=== PATIENT | male | born 1975 | race African-American/Black ===

== ENCOUNTER 2017-08-05 08:17 | Emergency (ER) | payer SELFPAY ==
[2017-08-05 08:29] VITALS: BP 142/79; BMI 41.8
[2017-08-05] MEDS ORDERED: TORADOL 60 MG VIAL IM ONE (09:01)
[2017-08-05] MEDS ORDERED: TORADOL 60 MG VIAL ONE (09:11)
--- NOTE | 2017-08-05 09:12 | DR.GENAD ---
HPI - PCP Primary Care Physician: lolita england - Complaint/Symptoms Chief Complaint Doctors Comments: Patient is complaining of severe left foot and ankle pain for the past 3-4 days getting worst today. States he has been taking prednisone and colchicine for gout but it has not been helping. state he saw Dr. Clark two days ago and he said it was not warm but had swelling and he was going to treat him for gout first and if it did not get any better to come back. He denies any recent trauma to his foot or ankle. States the pain is 30 of 10. states his left foot has been swelling for the past 4-5 days. He denies fever, chills, or lesions to his foot. Patient states he has had pens in his foot and had his bones fused in his left foot and has been having problems bending his foot since the surgery. Chief Complaint:: PT IS ON CRUTCHES, PT C/O EDEMA AND PAIN TO THE LEFT AKLE AREA , PT WAS SEEN BY DR. CLARK AND TX FOR GOUT AND HE WAS TOLD TO COME BACK IF SYMTOMS WORSEN, AND HE SAYS HE COULD NOT MAKE IT, Self Treatment fo Chief Complaint: ALLOPURIOL, - Nurses notes reviewed Nurses Notes Review: Yes - Source History Provided: Patient - Mode of Arrival Mode of Arrival: Ambulatory - Timing Onset of Chief Complaint: 08/01/17 Came on: Gradually - Duration Duration: Constant How lon Duration: Days - Location Location: left foot - Severity Severity: Severe - Modifying Factors Worsens:: nothing Improves:: nothing PMH - PMH Past Medical History: Yes Past Medical History: Gout, Hypertension Past Surgical History: Yes Surgical History: Ortho Surgery - Family History History of Family Medical Conditions: Yes Family Medical History: Diabetes Mellitus, Cancer, Hypertension - Social History Does patient currently use any type of tobacco product: Yes Have you used tobacco products in the last 12 months: Yes Type of Tobacco Use: Smokeless Does any household member use tobacco: No Alcohol Use: Rarely Do you use any recreational Drugs:: No Lives With: Family Lives Where: Home - infectious screening In the last 2 months have you had wt loss of >10#?: NO Have you had fever, night sweats or hemotysis?: No Have you traveled outside the country in the last 6 months?: No Isolation: Standard ROS - Review of Systems Constitutional: No Symptoms Reported. negative: See HPI, Chills, Diaphoresis, Fever, Malaise, Weakness, Irritable, Fatigue, Loss of Appetite, Other Eyes: No Symptoms Reported ENTM: No Symptoms Reported. negative: See HPI, Ear Pain, Ear Discharge, Pulling on Ears, Hearing Loss, Nose Pain, Nose Discharge, Epistaxis, Nose Congestion, Mouth Pain, Mouth Swelling, Loose Teeth, Drooling, Throat Pain, Throat Swelling, Ear Foreign Body Respiratoy: No Symptoms Reported Cardiovascular: No Symptoms Reported. negative: See HPI, Chest Pain, Edema, Palpitations, Syncope, Cyanosis, Skin Mottling, Other Gastrointestinal/Abdominal: No Symptoms Reported. negative: See HPI, Abdominal Pain, Constipation, Diarrhea, Nausea, Vomiting, Food Intolerance, Other Genitourinary: No Symptoms Reported Neurological: No Symptoms Reported, Problems Walking (left foot pain; unable to put weight on left foot). negative: See HPI, Anxiety, Depressed, Emotional Problems, Headache, Numbness, Paresthesia, Pre-existing Deficit, Seizure, Tingling, Tremors, Weakness, Dizziness, Speech Problem, Other Musculoskeletal: No Symptoms Reported, Left, Ankle (pain and swelling), Foot Integumentary: No Symptoms Reported. negative: See HPI, Change in Color, Change in Hair/Nails, Dryness, Lesions, Lumps, Rash, Itching, Wound, Bruises, Juandice, Other Hematologic/Lymphatic: No Symptoms Reported Endocrine: No Symptoms Reported Psychiatric: No Symptoms Reported PE - Vital Signs Vitals: Temperature 97.5 F Pulse Rate 88 Respiratory Rate 22 Blood Pressure [Left Arm] 160/95 Blood Pressure [Right Arm] 142/86 Blood Pressure 142/79 O2 Sat by Pulse Oximetry 98 - General Limitations: No Limitations General Appearance: Alert, In Distress (moderate), Obese - Head Head Exam: Normal Inspection, Atraumatic, Normocephalic - Eyes Eye exam: Normal Appearance, PERRL, EOMI. negative: Scleral Icterus, Conjunctival Injection, Nystagmus, Miosis, Mydrasis, Periorbital Swelling, Periorbital Tenderness, Other - ENT ENT Exam: Normal Exam, Normal Oropharynx, Normal External Ear Exam, Mucous Membranes Moist, TM's Normal Bilaterally External Ear Exam: Normal External Inspection TM/Canal Exam: Bilateral Normal Nose Exam: Normal Nose Exam Mouth Exam: Normal Inspection Throat Exam: Normal Inspection - Neck Neck Exam: Normal Inspection, Full ROM, Trachea Midline. negative: Tenderness, Meningismus, Lymphadenopathy, Thyromegaly, Other - Chest Chest Inspection: Normal Inspection, Symmetric Chest Wall Rise - Respiratory Respiratory Exam: Normal Lung Sounds Bilat Respiratory Exam: Bilateral Clear to Auscultation - Cardiovascular Cardiovascular Exam: Regular Rate, Normal Rhythm, Normal Heart Sounds - Abdominal Exam Abdominal Exam: Normal Inspection, Normal Bowel Sounds, Soft. negative: Distention, Tenderness, Guarding, Rebound, Rigidity, Dimnished Bowel Sounds, Hyperactive Bowel Sounds, Hypoactive Bowel Sounds, Organomegaly, Trauma, Incision, Ascites, Mass, Bruit, Pulsatile Mass, Hernia, Other Abdominal Tenderness: negative: RUQ, RLQ, LUQ, LLQ, Epigastrium, Suprapubic, Diffuse, Mild, Moderate, Severe, Other - Extremities Extremities Exam: Normal Inspection, Full ROM, Tenderness (left ankle and lateral foot), Normal Capillary Refill, Edema (1-2+ edema left foot; severe pes planis left foot). negative: Joint Swelling, Calf Tenderness, Other - Back Back Exam: Normal Inspection, Full ROM. negative: Tenderness, (R) CVA Tenderness, (L) CVA Tenderness, Muscle Spasm, Paraspinal Tenderness, Vertebral Tenderness, Rashes, (R) Sciatic Notch Tenderness, (L) Sciatic Notch Tendern, (R ) Straight Leg Raise, (L) Straight Leg Raise, Other - Neurologic Neurological Exam: Alert, Oriented X3, CN II-XII Intact, Reflexes Normal. negative: Normal Gait (gait not tested) - Psychiatric Psychiatric Exam: Normal Affect, Normal Mood. negative: Depressed, Agitated, Anxious, Flat Affect, Manic, Homicidal Ideation, Suicidal Ideation, Other - Skin Skin Exam: Warm, Dry, Intact, Normal Color ROR - Labs Reviewed Laboratory Results Reviewed?: Yes (all labs and x-ray results reviewed and discussed with patient) Result Diagrams: 08/05/17 09:10 08/05/17 09:10 Laboratory: WBC 9.8 X10^3/uL (3.6-10.0) 08/05/17 09:10 RBC 4.56 X10^6/uL (4.7-6.0) L 08/05/17 09:10 Hgb 14.0 g/dL (13.5-18.0) 08/05/17 09:10 Hct 41.1 % (42.0-54.0) L 08/05/17 09:10 MCV 90.1 fL (80.0-100.0) 08/05/17 09:10 MCH 30.7 pg (27.0-34.0) 08/05/17 09:10 MCHC 34.1 g/dL (33.0-35.0) 08/05/17 09:10 RDW 13.3 % (11.6-16.5) 08/05/17 09:10 Plt Count 237 X10^3/uL (150.0-450.0) 08/05/17 09:10 MPV 10.1 fL (7.4-11.0) 08/05/17 09:10 Neut % 56.2 % (42.0-75.0) 08/05/17 09:10 Lymph % 33.7 % (21.0-51.0) 08/05/17 09:10 [place] % 7.9 % (0.0-13.0) 08/05/17 09:10 Eos % 1.5 % (0.9-2.9) 08/05/17 09:10 Baso % 0.7 % (0.2-1.0) 08/05/17 09:10 Neut # 5.5 x10^3/uL (2.2-4.8) H 08/05/17 09:10 Lymph # 3.3 X10^3/uL (1.3-2.9) H 08/05/17 09:10 [place] # 0.8 x10^3/uL (0.3-0.8) 08/05/17 09:10 Eos # 0.1 x10^3/uL (0.0-0.2) 08/05/17 09:10 Baso # 0.1 X10^3/uL (0.0-0.1) 08/05/17 09:10 Absolute Nucleated RBC 0.1 /100WBC 08/05/17 09:10 Sodium 137 mmol/L (136-145) 08/05/17 09:10 Corrected Sodium TNP 08/05/17 09:10 Potassium 3.8 mmol/L (3.5-5.1) 08/05/17 09:10 Chloride 102 mmol/L (98-107) 08/05/17 09:10 Carbon Dioxide 27.6 mmol/L (21-32) 08/05/17 09:10 BUN 16 mg/dL (7-18) 08/05/17 09:10 Creatinine 1.05 mg/dL (0.70-1.30) 08/05/17 09:10 Est GFR (MDRD) Af Amer > 60 (>60) 08/05/17 09:10 Est GFR (MDRD) Non-Af > 60 (>60) 08/05/17 09:10 Glucose 109 mg/dL (65-99) H 08/05/17 09:10 Uric Acid 7.0 mg/dL (3.5-7.2) 08/05/17 09:10 Calcium 8.8 mg/dL (8.5-10.1) 08/05/17 09:10 Corrected Calcium TNP 08/05/17 09:10 Total Bilirubin 0.50 mg/dL (0.2-1.0) 08/05/17 09:10 AST 28 Units/L (15-37) 08/05/17 09:10 ALT 45 Units/L (12-78) 08/05/17 09:10 Alkaline Phosphatase 105 Units/L (46-116) 08/05/17 09:10 Total Protein 8.0 g/dL (6.4-8.2) 08/05/17 09:10 Albumin 3.6 g/dL (3.4-5.0) 08/05/17 09:10 Globulin 4.4 g/dL (2.5-4.5) 08/05/17 09:10 Albumin/Globulin Ratio 0.8 Ratio (1.1-2.1) L 08/05/17 09:10 - XRAY XRAY Interpreted by: Self (left foot: No acute fracture or dislocation; fusion of talus and calcaneus noted) - Diagnosis Discharge Problem: Foot pain, left, Gout, early cellulitis left foot, probable, Pes planus - Discharge Plan Disposition: HOME, SELF-CARE Condition: Stable Prescriptions: Acetaminophen/Codeine Tab [TYLENOL w/CODEINE #3 (300 MG/30 MG) *] 1 tab PO Q4- 6H PRN #24 tab PRN Reason: Pain Ciprofloxacin HCl [CIPRO 500 MG TAB *] 500 mg PO Q12H #20 tab Prednisone [Prednisone Tab 20 mg] 20 mg PO QAM #14 tab - Follow ups/Referrals Follow ups/Referrals: JENNIFER CLARK [Primary Care Provider] - 3 days - Instructions Instructions: Gout, [id number], Cellulitis, Adult, [id number], Flat Feet
[2017-08-05 09:27] LABS: BASOPHILS # (AUTO) 0.1 X10^3/uL (0.0-0.1); BASOPHILS % (AUTO) 0.7 % (0.2-1.0); EOSINOPHILS # (AUTO) 0.1 x10^3/uL (0.0-0.2); EOSINOPHILS % (AUTO) 1.5 % (0.9-2.9); HEMATOCRIT 41.1 % (42.0-54.0); LYMPHOCYTES # (AUTO) 3.3 X10^3/uL (1.3-2.9); LYMPHOCYTES % (AUTO) 33.7 % (21.0-51.0); MEAN CORPUSCULAR HEMOGLOBIN 30.7 pg (27.0-34.0); MEAN CORPUSCULAR HGB CONC 34.1 g/dL (33.0-35.0); MEAN CORPUSCULAR VOLUME 90.1 fL (80.0-100.0); MEAN PLATELET VOLUME 10.1 fL (7.4-11.0); MONOCYTES # (AUTO) 0.8 x10^3/uL (0.3-0.8); MONOCYTES % (AUTO) 7.9 % (0.0-13.0); NEUTROPHILS # (AUTO) 5.5 x10^3/uL (2.2-4.8); NEUTROPHILS % (AUTO) 56.2 % (42.0-75.0); PLATELET COUNT 237 X10^3/uL (150.0-450.0); RED BLOOD COUNT 4.56 X10^6/uL (4.7-6.0); RED CELL DISTRIBUTION WIDTH 13.3 % (11.6-16.5); WHITE BLOOD COUNT 9.8 X10^3/uL (3.6-10.0)
[2017-08-05 09:40] LABS: ALANINE AMINOTRANSFERASE 45 Units/L (12-78); ALBUMIN 3.6 g/dL (3.4-5.0); ALKALINE PHOSPHATASE 105 Units/L (46-116); ASPARTATE AMINO TRANSFERASE 28 Units/L (15-37); BLOOD UREA NITROGEN 16 mg/dL (7-18); CALCIUM 8.8 mg/dL (8.5-10.1); CARBON DIOXIDE 27.6 mmol/L (21-32); CHLORIDE 102 mmol/L (98-107); CREATININE 1.05 mg/dL (0.70-1.30); SODIUM 137 mmol/L (136-145); eGFR BLACK RACES > 60 (>60); eGFR NON BLACK RACES > 60 (>60)
[2017-08-05] MEDS ORDERED: PREDNISONE TAB 20 MG PO ONE (10:31)
[2017-08-05] MEDS ORDERED: LEVAQUIN TAB 500 MG PO SCH (11:00)
--- NOTE | 2017-08-05 15:17 | RAD ---
History: Left foot and ankle pain and swelling Technique: Three views of the left ankle Comparison:NONE Findings: There is generalized osteopenia. There is a pes planus foot deformity. There is moderate periarticula r soft tissue swelling. No acute fracture or dislocation is demonstrated. 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 There is m oderate midfoot osteoarthrosis. Impression: 1. Findings consistent with a talocalcaneal coalition. This can be further assessed with nonemergent outpatient CT or MRI if clinically indicated. 2. Pes planus 3. Moderate midfoot osteoarthrosis. 4. Paratracheal soft tissue swelling which may represent ligamentous injury if there has been recent acute trauma Reported By:
--- NOTE | 2017-08-05 15:19 | RAD ---
History: Left foot and ankle pain and swelling Technique: Three views of the left foot Comparison:NONE Findings: There is no acute fracture or dislocation demonstrated. There is generalized osteopenia. The tarsomet atarsal articulations appear aligned. There is moderate midfoot osteoarthrosis. There is incomplete v isualization of subtalar joint with beaking of the talar head, consistent with a subtalar/talocalcane al coalition. There is a pes planus. There is mild generalized soft tissue swelling. Impression: 1. Mass consistent with a talocalcaneal coalition. 2. Pes planus 3. Osteoarthrosis and generalized osteopenia 4. Soft tissue swelling. Reported By:
== END 2017-08-05 10:50 | disposition home or self-care (01) ==
LOC: ER 08:32
DX: M10.9 Gout, unspecified (principal); M79.672 Pain in left foot; L03.116 Cellulitis of left lower limb; M21.42 Flat foot [pes planus] (acquired), left foot; M17.9 Osteoarthritis of knee, unspecified; M79.89 Other specified soft tissue disorders; M85.80 Other specified disorders of bone density and structure, unspecified site
CPT/HCPCS: 36415; 73610; 73630; 80053; 84550; 85025; 96372; 99282; 99283; J1885

== ENCOUNTER 2017-12-15 01:42 | Emergency (ER) | payer SELFPAY ==
[2017-12-15 01:48] VITALS: BP 139/93; BMI 43.2
[2017-12-15] MEDS ORDERED: PREDNISONE TAB 20 MG PO ONE (02:03)
[2017-12-15] MEDS ORDERED: COLCRYS TAB 0.6 MG PO ONE (02:03)
--- NOTE | 2017-12-15 02:04 | DR.GENAD ---
HPI - PCP Primary Care Physician: nfd - Complaint/Symptoms Chief Complaint Doctors Comments: Gout flare up for past few days on his right ankle. He is out of his gout maintainance medications. There was a couple of left over Prednisone tabs and he took those this past weekend. Chief Complaint:: GOUT IN RIGHT FOOT - Nurses notes reviewed Nurses Notes Review: Yes - Source History Provided: Patient - Mode of Arrival Mode of Arrival: Ambulatory - Timing Onset of Chief Complaint: 12/14/17 - Severity Severity: Moderate - Associated Signs and Symptoms Associated Signs and Symptoms: swelling, redness about the right ankle. PMH - PMH Past Medical History: Yes Past Medical History: Gout, Hypertension Past Surgical History: Yes Surgical History: Ortho Surgery - Family History History of Family Medical Conditions: Yes Family Medical History: Diabetes Mellitus, Cancer, Hypertension - Social History Type of Tobacco Use: Cigarettes Do you use any recreational Drugs:: No Lives Where: Home - infectious screening Have you traveled outside the country in the last 6 months?: No Isolation: Standard ROS - Review of Systems Constitutional: No Symptoms Reported Eyes: No Symptoms Reported ENTM: No Symptoms Reported Respiratoy: No Symptoms Reported Cardiovascular: No Symptoms Reported Gastrointestinal/Abdominal: No Symptoms Reported Genitourinary: No Symptoms Reported Neurological: No Symptoms Reported Musculoskeletal: Gout, Right, Ankle Integumentary: No Symptoms Reported Hematologic/Lymphatic: No Symptoms Reported Endocrine: No Symptoms Reported Psychiatric: No Symptoms Reported PE - Vital Signs Vitals: Temperature 97.8 F Pulse Rate 81 Respiratory Rate 16 Blood Pressure [Left Arm] 160/95 Blood Pressure [Right Arm] 142/86 Blood Pressure 139/93 O2 Sat by Pulse Oximetry 98 - General Limitations: No Limitations General Appearance: Alert, In No Apparent Distress - Head Head Exam: Normal Inspection - Eyes Eye exam: Normal Appearance - ENT ENT Exam: Normal Exam - Neck Neck Exam: Normal Inspection, Full ROM, Trachea Midline - Chest Chest Inspection: Normal Inspection, Symmetric Chest Wall Rise - Respiratory Respiratory Exam: Normal Lung Sounds Bilat - Cardiovascular Cardiovascular Exam: Regular Rate, Normal Rhythm, +S1, +S2 - Abdominal Exam Abdominal Exam: Normal Inspection, Normal Bowel Sounds, Soft - Extremities Extremities Exam: Normal Inspection, Tenderness (right lateral ankle), Other ( bilateral pes planus) - Back Back Exam: Normal Inspection - Neurologic Neurological Exam: Alert, Oriented X3 - Psychiatric Psychiatric Exam: Normal Affect, Normal Mood - Skin Skin Exam: Warm, Dry, Intact, Normal Color - Diagnosis Discharge Problem: Gout attack, Pes planus - Discharge Plan Disposition: 01 HOME, SELF-CARE Condition: Stable - Follow ups/Referrals Follow ups/Referrals: NFD,None [Primary Care Provider] - 3 days - Instructions
== END 2017-12-15 02:28 | disposition home or self-care (01) ==
LOC: ER 01:42
DX: M10.9 Gout, unspecified (principal); M21.41 Flat foot [pes planus] (acquired), right foot
CPT/HCPCS: 99282; J7506

== ENCOUNTER 2018-02-03 14:31 | Emergency (ER) | payer SELFPAY ==
[2018-02-03 14:36] VITALS: BMI 47.4
[2018-02-03] MEDS ORDERED: COLCRYS TAB 0.6 MG PO STA (15:00)
--- NOTE | 2018-02-03 15:00 | DR.GENAD ---
HPI - PCP Primary Care Physician: none - Complaint/Symptoms Chief Complaint Doctors Comments: Right knee pain and swelling with pain in his right foot, second toe. Patient denies any recent trauma and states he has had problems with gout before and was given Prednisone and allopurinol but has not had anything recently. States he is a patient of Dr. Francisco. He denies chest pain , SOB, cold or cough. States he has had surgery on his left knee and his right knee has been scoped. States he had shrimp plate recently. States he has not had a flare up since his last visit to the emergency room. States he has taken his blood pressure medicines. He denies headache or dizziness. Chief Complaint:: "gout in right knee and toes" - Nurses notes reviewed Nurses Notes Review: Yes - Source History Provided: Patient - Mode of Arrival Mode of Arrival: Ambulatory - Timing Onset of Chief Complaint: 02/02/18 Came on: Gradually - Duration Duration: Constant How lon Duration: Days - Location Location: right knee and foot - Severity Severity: Severe - Modifying Factors Worsens:: walking Improves:: nothing PMH - PMH Past Medical History: Yes Past Medical History: Gout, Hypertension Past Surgical History: Yes Surgical History: Ortho Surgery - Family History History of Family Medical Conditions: Yes Family Medical History: Diabetes Mellitus, Cancer, Hypertension - Social History Does patient currently use any type of tobacco product: No Have you used tobacco products in the last 12 months: No Type of Tobacco Use: None Does any household member use tobacco: No Alcohol Use: Occasionally Do you use any recreational Drugs:: No Lives With: Family Lives Where: Home - infectious screening In the last 2 months have you had wt loss of >10#?: NO Have you had fever, night sweats or hemotysis?: No Have you traveled outside the country in the last 6 months?: No Isolation: Standard ROS - Review of Systems Constitutional: No Symptoms Reported. negative: See HPI, Chills, Diaphoresis, Fever, Malaise, Weakness, Irritable, Fatigue, Loss of Appetite, Other Eyes: No Symptoms Reported ENTM: No Symptoms Reported. negative: See HPI, Ear Pain, Ear Discharge, Pulling on Ears, Hearing Loss, Nose Pain, Nose Discharge, Epistaxis, Nose Congestion, Mouth Pain, Mouth Swelling, Loose Teeth, Drooling, Throat Pain, Throat Swelling, Ear Foreign Body Respiratoy: No Symptoms Reported. negative: See HPI, Productive Cough, Non- Productive Cough, Moist Cough, Dry Cough, Hacking Cough, Barking Cough, Brassy Cough, Orthopnea, Short of Breath, Stridor, Wheezing, Hemoptysis, Other Cardiovascular: No Symptoms Reported. negative: See HPI, Chest Pain, Edema, Palpitations, Syncope, Cyanosis, Skin Mottling, Other Gastrointestinal/Abdominal: No Symptoms Reported. negative: See HPI, Abdominal Pain, Constipation, Diarrhea, Nausea, Vomiting, Food Intolerance, Other Genitourinary: No Symptoms Reported. negative: See HPI, Discharge, Dysuria, Frequency, Hematuria, Pain, Bleeding, Other Neurological: No Symptoms Reported Musculoskeletal: No Symptoms Reported, Right, Knee, Foot Integumentary: No Symptoms Reported. negative: See HPI, Change in Color, Change in Hair/Nails, Dryness, Lesions, Lumps, Rash, Itching, Wound, Bruises, Juandice, Other Hematologic/Lymphatic: negative: No Symptoms Reported, See HPI, Anemia, Blood Clots, Easy Bleeding, Easy Bruising, Swollen Glands, Lymphadenopathy, Other Endocrine: No Symptoms Reported Psychiatric: No Symptoms Reported. negative: See HPI, Anxiety, Depression, Hallucinations, Excessive crying, Suicidal, Other PE - Vital Signs Vitals: Temperature 97.7 F Pulse Rate 80 Respiratory Rate 18 Blood Pressure [Left Arm] 160/95 Blood Pressure [Right Arm] 142/86 Blood Pressure 214/109 O2 Sat by Pulse Oximetry 99 - General Limitations: No Limitations General Appearance: Alert, In Distress (moderate), Obese - Head Head Exam: Normal Inspection, Atraumatic, Normocephalic - Eyes Eye exam: Normal Appearance, PERRL, EOMI. negative: Scleral Icterus, Conjunctival Injection, Nystagmus, Miosis, Mydrasis, Periorbital Swelling, Periorbital Tenderness, Other - ENT ENT Exam: Normal Exam, Normal Oropharynx, Normal External Ear Exam, Mucous Membranes Moist, TM's Normal Bilaterally External Ear Exam: Normal External Inspection TM/Canal Exam: Bilateral Normal Nose Exam: Normal Nose Exam Mouth Exam: Normal Inspection Throat Exam: Normal Inspection - Neck Neck Exam: Normal Inspection, Full ROM, Trachea Midline - Chest Chest Inspection: Normal Inspection, Symmetric Chest Wall Rise - Respiratory Respiratory Exam: Normal Lung Sounds Bilat Respiratory Exam: Bilateral Clear to Auscultation - Cardiovascular Cardiovascular Exam: Regular Rate, Normal Rhythm, Normal Heart Sounds - Abdominal Exam Abdominal Exam: Normal Inspection, Normal Bowel Sounds, Soft. negative: Distention, Tenderness, Guarding, Rebound, Rigidity, Dimnished Bowel Sounds, Hyperactive Bowel Sounds, Hypoactive Bowel Sounds, Organomegaly, Trauma, Incision, Ascites, Mass, Bruit, Pulsatile Mass, Hernia, Other Abdominal Tenderness: negative: RUQ, RLQ, LUQ, LLQ, Epigastrium, Suprapubic, Diffuse, Mild, Moderate, Severe, Other - Extremities Extremities Exam: Normal Inspection, Full ROM, Tenderness (right knee with crepitus; warm; no erythema; no calf tenderness), Normal Capillary Refill. negative: Edema, Joint Swelling, Calf Tenderness, Other - Back Back Exam: Normal Inspection, Full ROM. negative: Tenderness, (R) CVA Tenderness, (L) CVA Tenderness, Muscle Spasm, Paraspinal Tenderness, Vertebral Tenderness, Rashes, (R) Sciatic Notch Tenderness, (L) Sciatic Notch Tendern, (R ) Straight Leg Raise, (L) Straight Leg Raise, Other - Neurologic Neurological Exam: Alert, Oriented X3, CN II-XII Intact, Normal Gait, Reflexes Normal - Psychiatric Psychiatric Exam: Normal Affect, Normal Mood - Skin Skin Exam: Warm, Dry, Intact, Normal Color ROR - Labs Reviewed Result Diagrams: 02/03/18 15:07 02/03/18 15: Laboratory: WBC 7.6 X10^3/uL (3.6-10.0) 02/03/18 15:07 RBC 4.81 X10^6/uL (4.7-6.0) 02/03/18 15:07 Hgb 14.6 g/dL (13.5-18.0) 02/03/18 15:07 Hct 42.7 % (42.0-54.0) 02/03/18 15:07 MCV 88.7 fL (80.0-100.0) 02/03/18 15:07 MCH 30.3 pg (27.0-34.0) 02/03/18 15:07 MCHC 34.2 g/dL (33.0-35.0) 02/03/18 15:07 RDW 13.3 % (11.6-16.5) 02/03/18 15:07 Plt Count 192 X10^3/uL (150.0-450.0) 02/03/18 15:07 MPV 10.4 fL (7.4-11.0) 02/03/18 15:07 Neut % (Auto) 51.3 % (42.0-75.0) 02/03/18 15:07 Lymph % (Auto) 36.4 % (21.0-51.0) 02/03/18 15:07 [place] % (Auto) 9.2 % (0.0-13.0) 02/03/18 15:07 Eos % (Auto) 1.9 % (0.9-2.9) 02/03/18 15:07 Baso % (Auto) 1.2 % (0.2-1.0) H 02/03/18 15:07 Neut # (Auto) 3.9 x10^3/uL (2.2-4.8) 02/03/18 15:07 Lymph # (Auto) 2.8 X10^3/uL (1.3-2.9) 02/03/18 15:07 [place] # (Auto) 0.7 x10^3/uL (0.3-0.8) 02/03/18 15:07 Eos # (Auto) 0.1 x10^3/uL (0.0-0.2) 02/03/18 15:07 Baso # (Auto) 0.1 X10^3/uL (0.0-0.1) 02/03/18 15:07 Absolute Nucleated RBC 0.1 /100WBC 02/03/18 15:07 Sodium 138 mmol/L (136-145) 02/03/18 15:07 Corrected Sodium TNP 02/03/18 15:07 Potassium 3.7 mmol/L (3.5-5.1) 02/03/18 15:07 Chloride 103 mmol/L (98-107) 02/03/18 15:07 Carbon Dioxide 24.0 mmol/L (21-32) 02/03/18 15:07 BUN 13 mg/dL (7-18) 02/03/18 15:07 Creatinine 1.01 mg/dL (0.70-1.30) 02/03/18 15:07 Est GFR (MDRD) Af Amer > 60 (>60) 02/03/18 15:07 Est GFR (MDRD) Non-Af > 60 (>60) 02/03/18 15:07 Glucose 99 mg/dL (65-99) 02/03/18 15:07 Uric Acid 8.0 mg/dL (3.5-7.2) H 02/03/18 15:07 Calcium 8.7 mg/dL (8.5-10.1) 02/03/18 15:07 - Diagnosis Discharge Problem: Arthritis Gout attack Qualifiers: Gout site: knee Gout etiology: idiopathic Laterality: right Qualified Code(s): M10.061 - Idiopathic gout, right knee Right knee pain Qualifiers: Chronicity: acute Qualified Code(s): M25.561 - Pain in right knee - Discharge Plan Disposition: 01 HOME, SELF-CARE Condition: Stable Prescriptions: Acetaminophen/Codeine Tab [TYLENOL w/CODEINE #3 (300 MG/30 MG) *] 1 tab PO Q4- 6H PRN #14 tab PRN Reason: Pain Allopurinol [ZYLOPRIM tab 100 mg *] 100 mg PO DAILY #30 tab Colchicine [Colcrys Tab 0.6 mg] 0.6 mg PO BID #30 tab Prednisone [Prednisone Tab 20 mg] 20 mg PO QAM #14 tab - Follow ups/Referrals Follow ups/Referrals: NFD,None [Primary Care Provider] - 3 days GREYSON GALEAS [STAFF PHYSICIAN] - 3 days MANSI DORANTES [STAFF PHYSICIAN] - 3 days - Instructions Instructions: Knee Pain, Adult, Gout, [id number], Hypertension
[2018-02-03] MEDS ORDERED: SOLU-Medrol 125 MG VIAL IM ONE (15:01)
[2018-02-03] MEDS ORDERED: TORADOL 60 MG VIAL IM ONE (15:02)
[2018-02-03] MEDS ORDERED: TORADOL 60 MG VIAL ONE (15:03)
[2018-02-03] MEDS ORDERED: SOLU-Medrol 125 MG VIAL ONE (15:03)
[2018-02-03 15:14] LABS: BASOPHILS # (AUTO) 0.1 X10^3/uL (0.0-0.1); BASOPHILS % (AUTO) 1.2 % (0.2-1.0); EOSINOPHILS # (AUTO) 0.1 x10^3/uL (0.0-0.2); EOSINOPHILS % (AUTO) 1.9 % (0.9-2.9); HEMATOCRIT 42.7 % (42.0-54.0); HEMOGLOBIN 14.6 g/dL (13.5-18.0); LYMPHOCYTES # (AUTO) 2.8 X10^3/uL (1.3-2.9); LYMPHOCYTES % (AUTO) 36.4 % (21.0-51.0); MEAN CORPUSCULAR HEMOGLOBIN 30.3 pg (27.0-34.0); MEAN CORPUSCULAR HGB CONC 34.2 g/dL (33.0-35.0); MEAN CORPUSCULAR VOLUME 88.7 fL (80.0-100.0); MEAN PLATELET VOLUME 10.4 fL (7.4-11.0); MONOCYTES # (AUTO) 0.7 x10^3/uL (0.3-0.8); MONOCYTES % (AUTO) 9.2 % (0.0-13.0); NEUTROPHILS # (AUTO) 3.9 x10^3/uL (2.2-4.8); NEUTROPHILS % (AUTO) 51.3 % (42.0-75.0); PLATELET COUNT 192 X10^3/uL (150.0-450.0); RED BLOOD COUNT 4.81 X10^6/uL (4.7-6.0); RED CELL DISTRIBUTION WIDTH 13.3 % (11.6-16.5); WHITE BLOOD COUNT 7.6 X10^3/uL (3.6-10.0)
[2018-02-03 15:24] LABS: BLOOD UREA NITROGEN 13 mg/dL (7-18); CALCIUM 8.7 mg/dL (8.5-10.1); CHLORIDE 103 mmol/L (98-107); CREATININE 1.01 mg/dL (0.70-1.30); SODIUM 138 mmol/L (136-145); eGFR BLACK RACES > 60 (>60); eGFR NON BLACK RACES > 60 (>60)
[2018-02-03] MEDS ORDERED: CATAPRES TAB 0.2 MG PO ONE (15:55)
[2018-02-03] MEDS ORDERED: CATAPRES TAB 0.2 MG ONE (15:57)
[2018-02-03 16:31] VITALS: BP 166/100
== END 2018-02-03 16:32 | disposition home or self-care (01) ==
LOC: ER 14:37
DX: M10.061 Idiopathic gout, right knee (principal); M19.90 Unspecified osteoarthritis, unspecified site; M25.561 Pain in right knee
CPT/HCPCS: 36415; 80048; 84550; 85025; 96372; 99282; J1885; J2930

== ENCOUNTER 2019-08-04 09:13 | Observation (INO) ==
[2019-08-04] MEDS ORDERED: ASPIRIN 81 MG CHEWTAB PO ONE (09:52)
--- NOTE | 2019-08-04 09:53 | RAD ---
HISTORY: 44-year-old male with chest pain. Study: Frontal view of the chest. Comparison: Chest radiograph 04/02/2014 Findings: The trachea is midline. The cardiac silhouette is unremarkable. The lungs are clear without focal consolidation, effusion or pneumothorax. Soft tissues are unremarkable. Osseous structures are unremarkable. IMPRESSION: 1. No acute cardiopulmonary disease. Reported By:
--- NOTE | 2019-08-04 09:54 | DR.CP ---
HPI Time Seen Time Seen by Provider: 08/04/19 09:40 PCP Primary Care Physician: AMBER COUGHLIN Complaint Chief Complaint Doctor Comments: A 44 y/o male presenting with c/o pressure like chest pain this a.m. He has had 2 intermittent occurrences. When he first awakened early this morning and again at about 0800 hrs. Location was along the Lt. lower ribs beneath his Lt. breast. He had associated pain along his Lt. armpit and numbness on the Lt. side of his neck. He had SOB but no diaphoresis or nausea/vomiting. He had a hx. of CAD is s/p angioplasty (2 stents) in May 2019. He took a S/L NTG and an ASA and the pain subsided. Chief Complaint:: PT C/O WAKING UP AT 0500 THIS AM WITH CHEST PAINS AND NUMBNESS TO HIS NECK , PT STATES THIS IS HOW HE FELT BEFORE HE GOT SICK LAST TIME , JUN 17 PT HAS 2 CARDIAC STENTS PLACED , PT C/O NEW ONSET OF SOB ,,BR Reviewed Nurses Notes Review: Yes Source History Provided: Patient Mode of Arrival Mode of Arrival: Ambulatory Timing Onset of Chief Complaint: 08/04/19 Came on: Gradually Location Location of Chest Pain: Left Chest Pain Radiation Location: Left Shoulder and Neck Context Onset: At rest Cardiac Risk Factors: HTN and Diabetes PE Risk Factors: None History of: Angioplasty Prehospital Care: [facility] Nitro and ASA Quality Quality: Sharp and Pressure like Modifying Factors Worsens: Nothing Impoves: Nothing Associated Signs and Symptoms Associated Signs and Symptoms: Shortness of Breath PMH PMH Past Medical History: Yes Past Medical History: Diabetes, Gout and Hypertension Past Surgical History: Yes Surgical History: Angioplasty/Stents and Ortho Surgery Family History History of Family Medical Conditions: Yes Family Medical History: Diabetes Mellitus Social History Does patient currently use any type of tobacco product: No Have you used tobacco products in the last 12 months: No Type of Tobacco Use: None Does any household member use tobacco: No Alcohol Use: None Do you use any recreational Drugs:: Yes (THC) Lives With: Family Lives Where: Home infectious screening In the last 2 months have you had wt loss of >10#?: NO Have you had fever, night sweats or hemotysis?: No Have you traveled outside the country in the last 6 months?: No Isolation: Standard ROS Review of Systems Constitutional: No Symptoms Reported Eyes: No Symptoms Reported ENTM: No Symptoms Reported Respiratoy: Short of Breath Cardiovascular: Chest Pain Gastrointestinal/Abdominal: No Symptoms Reported Genitourinary: No Symptoms Reported Neurological: No Symptoms Reported Musculoskeletal: No Symptoms Reported Integumentary: No Symptoms Reported Hematologic/Lymphatic: No Symptoms Reported Endocrine: No Symptoms Reported Psychiatric: No Symptoms Reported PE Vitals Vitals: Temperature 97.7 F Pulse Rate 81 Respiratory Rate 20 Blood Pressure [Left Arm] 138/90 Blood Pressure [Right Arm] 142/86 Blood Pressure 149/90 O2 Sat by Pulse Oximetry 99 General Limitations: No Limitations General Appearance: Alert, In No Apparent Distress and Appears Intoxicated Head Head Exam: Normal Inspection, Atraumatic and Normocephalic Eyes Eye exam: Normal Appearance and EOMI ENT ENT Exam: Normal Exam, Normal Oropharynx and Mucous Membranes Moist Chest Chest Inspection: Normal Inspection and Symmetric Chest Wall Rise Respiratory Respiratory Exam: Normal Lung Sounds Bilat Cardiovascular Cardiovascular Exam: Regular Rate, Normal Rhythm, Normal Heart Sounds, +S1 and +S2 Pulse: Normal Edema: Normal Abdominal Exam Abdominal Exam: Normal Inspection, Normal Bowel Sounds and Soft Extremities Extremities Exam: Normal Inspection and Full ROM Back Back Exam: Normal Inspection and Full ROM Neurologic Neurological Exam: Alert, Oriented X3 and CN II-XII Intact Psychiatric Psychiatric Exam: Normal Affect and Normal Mood Skin Skin Exam: Dry and Normal Color MDM Differential Diagnosis Differential Diagnosis: Angina, Costochondritis, Pancreatitis and Pneumonia COURSE Reevaluation 1st: Improved 2nd: Improved Education/Counseling Education/Counseling: Patient, Education and Counseling Educated On: Treatment, Diagnosis, Prognosis and Needs for Follow Up ROR Labs Reviewed Laboratory Results Reviewed?: Yes Result Diagrams: 08/04/19 09:48 08/04/19 09:48 Laboratory: WBC 5.5 X10^3/uL (3.6-10.0) 08/04/19 09:48 RBC 4.41 X10^6/uL (4.7-6.0) L 08/04/19 09:48 Hgb 13.6 g/dL (13.5-18.0) 08/04/19 09:48 Hct 39.9 % (42.0-54.0) L 08/04/19 09:48 MCV 90.5 fL (80.0-100.0) 08/04/19 09:48 MCH 30.9 pg (27.0-34.0) 08/04/19 09:48 MCHC 34.2 g/dL (33.0-35.0) 08/04/19 09:48 RDW 13.4 % (11.6-16.5) 08/04/19 09:48 Plt Count 212 X10^3/uL (150.0-450.0) 08/04/19 09:48 MPV 9.5 fL (7.4-11.0) 08/04/19 09:48 Neut % (Auto) 43.0 % (42.0-75.0) 08/04/19 09:48 Lymph % (Auto) 44.5 % (21.0-51.0) 08/04/19 09:48 [place] % (Auto) 9.7 % (0.0-13.0) 08/04/19 09:48 Eos % (Auto) 1.7 % (0.9-2.9) 08/04/19 09:48 Baso % (Auto) 1.1 % (0.2-1.0) H 08/04/19 09:48 Neut # (Auto) 2.4 x10^3/uL (2.2-4.8) 08/04/19 09:48 Lymph # (Auto) 2.4 X10^3/uL (1.3-2.9) 08/04/19 09:48 [place] # (Auto) 0.5 x10^3/uL (0.3-0.8) 08/04/19 09:48 Eos # (Auto) 0.1 x10^3/uL (0.0-0.2) 08/04/19 09:48 Baso # (Auto) 0.1 X10^3/uL (0.0-0.1) 08/04/19 09:48 Absolute Nucleated RBC 0.0 /100WBC 08/04/19 09:48 PT 12.2 SECONDS (11.8-14.3) 08/04/19 09:48 INR Target Range - 08/04/19 09:48 INR 0.94 (0.8-1.3) 08/04/19 09:48 APTT 28.6 SECONDS (22.9-36.5) 08/04/19 09:48 PTT Comment - 08/04/19 09:48 Sodium 138 mmol/L (136-145) 08/04/19 09:48 Corrected Sodium 138 mmol/L (136-145) 08/04/19 09:48 Potassium 3.7 mmol/L (3.5-5.1) 08/04/19 09:48 Chloride 101 mmol/L (98-107) 08/04/19 09:48 Carbon Dioxide 25.8 mmol/L (21-32) 08/04/19 09:48 BUN 23 mg/dL (7-18) H 08/04/19 09:48 Creatinine 1.09 mg/dL (0.70-1.30) 08/04/19 09:48 Est GFR (MDRD) Af Amer > 60 (>60) 08/04/19 09:48 Est GFR (MDRD) Non-Af > 60 (>60) 08/04/19 09:48 Glucose 113 mg/dL (65-99) H 08/04/19 09:48 Calcium 8.7 mg/dL (8.5-10.1) 08/04/19 09:48 Corrected Calcium TNP 08/04/19 09:48 Total Bilirubin 0.30 mg/dL (0.2-1.0) 08/04/19 09:48 AST 21 Units/L (15-37) 08/04/19 09:48 ALT 37 Units/L (12-78) 08/04/19 09:48 Alkaline Phosphatase 99 Units/L (46-116) 08/04/19 09:48 Creatine Kinase 394 Units/L (39-308) H 08/04/19 09:48 CK-MB (CK-2) 1.1 ng/mL (0-4.0) 08/04/19 09:48 CK/CKMB % Calc 0.3 % (<4) 08/04/19 09:48 Troponin I < 0.02 ng/mL (0-1.5) 08/04/19 09:48 Total Protein 7.8 g/dL (6.4-8.2) 08/04/19 09:48 Albumin 3.8 g/dL (3.4-5.0) 08/04/19 09:48 Globulin 4.0 g/dL (2.5-4.5) 08/04/19 09:48 Albumin/Globulin Ratio 1.0 Ratio (1.1-2.1) L 08/04/19 09:48 Amylase 95 Units/L (25-115) 08/04/19 09:48 Lipase 269 Units/L (73-393) 08/04/19 09:48 XRAY XRAY Interpreted by: Self XRAY Findings: CXR: no acute cardiopulmnary disease. EKG Rate: 90 Rhythm: NSR Block: IVCD Hypertrophy: None ST: Old and Infarct Opioid Opioid Risk Tool Age (Charbel box if 16-45): No History of Preadolescent Sexual Abuse: No Total: 0 Total Score Risk Category: Low Risk Copyright: [facility] predicting aberrant behaviors Diagnosis Discharge Problem: Diabetes mellitus type 2 Chest pain Qualifiers: Chest pain type: precordial pain Qualified Code(s): R07.2 - Precordial pain Hypertension Qualifiers: Hypertension type: essential hypertension Qualified Code(s): I10 - Essential (primary) hypertension CAD (coronary artery disease) Qualifiers: Coronary Disease-Associated Artery/Lesion type: [place] artery [place] vs. transplanted heart: [place] heart Associated angina: with stable angina Qualified Code(s): I25.118 - Atherosclerotic heart disease of [place] coronary artery with other forms of angina pectoris
[2019-08-04] MEDS ORDERED: ASPIRIN 81 MG CHEWTAB ONE (09:55)
[2019-08-04 09:59] LABS: BASOPHILS # (AUTO) 0.1 X10^3/uL (0.0-0.1); BASOPHILS % (AUTO) 1.1 % (0.2-1.0); EOSINOPHILS # (AUTO) 0.1 x10^3/uL (0.0-0.2); EOSINOPHILS % (AUTO) 1.7 % (0.9-2.9); HEMATOCRIT 39.9 % (42.0-54.0); HEMOGLOBIN 13.6 g/dL (13.5-18.0); LYMPHOCYTES # (AUTO) 2.4 X10^3/uL (1.3-2.9); LYMPHOCYTES % (AUTO) 44.5 % (21.0-51.0); MEAN CORPUSCULAR HEMOGLOBIN 30.9 pg (27.0-34.0); MEAN CORPUSCULAR HGB CONC 34.2 g/dL (33.0-35.0); MEAN CORPUSCULAR VOLUME 90.5 fL (80.0-100.0); MEAN PLATELET VOLUME 9.5 fL (7.4-11.0); MONOCYTES # (AUTO) 0.5 x10^3/uL (0.3-0.8); MONOCYTES % (AUTO) 9.7 % (0.0-13.0); NEUTROPHILS # (AUTO) 2.4 x10^3/uL (2.2-4.8); PLATELET COUNT 212 X10^3/uL (150.0-450.0); RED BLOOD COUNT 4.41 X10^6/uL (4.7-6.0); RED CELL DISTRIBUTION WIDTH 13.4 % (11.6-16.5); WHITE BLOOD COUNT 5.5 X10^3/uL (3.6-10.0)
[2019-08-04 10:10] LABS: AMYLASE 95 Units/L (25-115); LIPASE 269 Units/L (73-393)
[2019-08-04] MEDS ORDERED: ZOFRAN INJ 4 MG VIAL IVP ONE (10:10)
[2019-08-04] MEDS ORDERED: ZOFRAN INJ 4 MG VIAL ONE (10:12)
[2019-08-04] MEDS: NITROSTAT SL PRN ×2 (10:15→10:45)
[2019-08-04 10:18] LABS: BLOOD UREA NITROGEN 23 mg/dL (7-18); CALCIUM 8.7 mg/dL (8.5-10.1); CARBON DIOXIDE 25.8 mmol/L (21-32); CHLORIDE 101 mmol/L (98-107); COR NA(FOR HYPERGLY) 138 mmol/L (136-145); CREATININE 1.09 mg/dL (0.70-1.30); SODIUM 138 mmol/L (136-145); TROPONIN I < 0.02 ng/mL (0-1.5); eGFR NON BLACK RACES > 60 (>60)
[2019-08-04 10:22] LABS: ALANINE AMINOTRANSFERASE 37 Units/L (12-78); ALBUMIN 3.8 g/dL (3.4-5.0); ALKALINE PHOSPHATASE 99 Units/L (46-116); ASPARTATE AMINO TRANSFERASE 21 Units/L (15-37); CKMB % 0.3 % (<4); CREATINE KINASE 394 Units/L (39-308); CREATINE KINASE MB 1.1 ng/mL (0-4.0); TOTAL PROTEIN 7.8 g/dL (6.4-8.2)
--- NOTE | 2019-08-04 12:03 | DR.H&P ---
H&P - History & Physical for Day of: H&P Date: 08/04/19 - Chief Complaint Chief Complaint: CHEST PAIN - History of Present Illness History of Present Illness: A 44 y/o male presenting with c/o pressure like chest pain this a.m. He has had 2 intermittent occurrences. When he first awakened early this morning and again at about 0800 hrs. Location was along the Lt. lower ribs beneath his Lt. breast. He had associated pain along his Lt. armpit and numbness on the Lt. side of his neck. He had SOB but no diaphoresis or nausea/vomiting. He had a hx. of CAD is s/p angioplasty (2 stents) in May 2019. He took a S/L NTG and an ASA and the pain subsided. - Past Medical History Past Medical History: Hypertension, Diabetes, Gout - Past Surgical History Surgical History: Angioplasty/Stents, Ortho Surgery - Family History Family Medical History: Diabetes Mellitus - Social History Does patient currently use any type of tobacco product: No Have you used tobacco products in the last 12 months: No Type of Tobacco Use: None Does any household member use tobacco: No Alcohol Use: None - Medications Home Medications: penicillin G Allergy (Verified 08/04/19 09:25) CONTINUE taking the following medications aspirin 81 mg PO DAILY 08/04/19 [History] atorvastatin 80 mg PO DAILY 08/04/19 [History] clopidogrel 75 mg PO DAILY 08/04/19 [History] colchicine 0.6 mg PO DAILY 08/04/19 [History] isosorbide dinitrate 5 mg PO BID 08/04/19 [History] metformin 500 mg PO BID 08/04/19 [History] metoprolol tartrate 25 mg PO BID 08/04/19 [History] pioglitazone 45 mg PO DAILY 08/04/19 [History] - Review of Systems Constitutional: Weakness Eyes: No Symptoms Reported ENT: No Symptoms Reported Respiratory: SOB with Excertion Cardiovascular: Chest Pain, Edema Gastrointestinal: Nausea Genitourinary: No Symptoms Reported Musculoskeletal: No Symptoms Reported Skin: No Symptoms Reported Neurological: No Symptoms Reported - Physical Exam Vital Signs: Temperature 97.7 F Pulse Rate 80 Respiratory Rate 20 Blood Pressure [Left Arm] 138/90 Blood Pressure [Right Arm] 142/86 Blood Pressure 152/105 O2 Sat by Pulse Oximetry 99 Oriented: Normal Eyes: Normal Ear: Normal Nose: Normal Throat: Normal Respiratory: RLL Diminished, LLL Diminished Cardiovascular: Normal : Normal Auscultation: Bowel Sounds: Normal Palpation: Normal Tenderness: Normal Skin: Normal Musculoskeletal: Normal Psychiatric: Normal Speech Pattern: Clear, Appropriate - Assessment/Plan (1) Chest pain Qualifiers: Chest pain type: precordial pain Qualified Code(s): R07.2 - Precordial pain Status: Acute Plan: ADMIT, SERIAL CE, EKG. BP AND LIPID CONTROL. BS MONITORING, VERIFY HOME MEDICATIONS. PRN SUPPLEMENTAL O2 (2) CAD (coronary artery disease) Qualifiers: Coronary Disease-Associated Artery/Lesion type: [place] artery [place] vs. transplanted heart: [place] heart Associated angina: with stable angina Quali fied Code(s): I25.118 - Atherosclerotic heart disease of [place] coronary artery with other forms of angina pectoris Status: Acute (3) Hypertension Qualifiers: Hypertension type: essential hypertension Qualified Code(s): I10 - Essential (primary) hypertension Status: Acute - Allergies Allergies/Adverse Reactions: Allergies Allergy/AdvReac Type Severity Reaction Status Date / Time penicillin G Allergy Verified 08/04/19 09:25
[2019-08-04] MEDS ORDERED: HumuLIN R SC PRN (12:18)
[2019-08-04] MEDS ORDERED: NITRODUR PATCH 0.1 MG/HR TD ONE (12:18)
[2019-08-04] MEDS ORDERED: ZESTORETIC 10/ 12.5MG PO SCH (12:45)
[2019-08-04] MEDS ORDERED: ZESTRIL TAB 20 MG ONE (13:48)
[2019-08-04] MEDS: HYDROCHLOROTHIAZIDE 12.5 MG CAP PO SCH (13:52)
[2019-08-04] MEDS: ZESTRIL TAB 20 MG PO SCH (13:52)
[2019-08-04] MEDS ORDERED: PREVNAR 13 IM ONE (14:45)
[2019-08-04] MEDS ORDERED: AFLURIA II4 or FLUARIX II4 IM ONE (14:45)
[2019-08-04 14:46] VITALS: BMI 45.4
[2019-08-04 16:48] LABS: CKMB % 0.4 % (<4); CREATINE KINASE 361 Units/L (39-308); CREATINE KINASE MB 1.3 ng/mL (0-4.0); TROPONIN I < 0.02 ng/mL (0-1.5)
[2019-08-04 18:32] LABS: BILIRUBIN,URINE NEGATIVE (NEGATIVE); BLOOD/HEMOGLOBIN,URINE NEGATIVE (NEGATIVE); GLUCOSE, URINE NEGATIVE (NEGATIVE); KETONES,URINE NEGATIVE (NEGATIVE); LEUKOCYTE ESTERASE ,URINE NEGATIVE (NEGATIVE); NITRITES,URINE NEGATIVE (NEGATIVE); PROTEIN,URINE NEGATIVE (NEGATIVE); UROBILINOGEN,URINE NORMAL (NORMAL)
[2019-08-04 18:33] LABS: APPEARANCE,URINE CLEAR (CLEAR); COLOR,URINE YELLOW (YELLOW)
[2019-08-04] MEDS ORDERED: GLUCOPHAGE ONE (19:32)
[2019-08-04] MEDS ORDERED: KLOR-CON PO PRN (20:15)
[2019-08-04] MEDS ORDERED: POTASSIUM CHLORIDE LIQ 20 MEQ UDC PO PRN (20:15)
[2019-08-04] MEDS ORDERED: POTASSIUM CHL 40 MEQ/NS 0.45% 500 ML IV PRN (20:15)
[2019-08-04] MEDS ORDERED: POTASSIUM CHL 60 MEQ/NS 0.45% 500 ML IV PRN (20:15)
[2019-08-04] MEDS ORDERED: K-RIDER 10 MEQ/NS 100 ML 10 MEQ/100 ML BAG IV PRN (20:15)
[2019-08-04] MEDS ORDERED: K-DUR TAB 20 MEQ PO PRN (20:15)
[2019-08-04] MEDS ORDERED: MICRO K EXTEN CAP 10 MEQ PO PRN (20:15)
[2019-08-04] MEDS ORDERED: MAGNESIUM SULFATE 1 GRAM/100 mL PREMIX 2 G/200 ML BAG IV ONE (20:19)
[2019-08-04] MEDS ORDERED: MICRO K EXTEN CAP 10 MEQ PO ONE (20:19)
[2019-08-04] MEDS: MAGNESIUM SULFATE 1 GRAM/100 mL PREMIX 1 GM/100 ML BAG IV PRN ×2 (20:22→21:25)
[2019-08-04] MEDS: ISOSORBIDE DINITRATE PO SCH (20:24)
[2019-08-04] MEDS: GLUCOPHAGE PO SCH (20:24)
[2019-08-04] MEDS: LOPRESSOR TAB 25 MG PO SCH (20:25)
[2019-08-04 22:10] LABS: CKMB % 0.4 % (<4); CREATINE KINASE 333 Units/L (39-308); CREATINE KINASE MB 1.4 ng/mL (0-4.0); TROPONIN I < 0.02 ng/mL (0-1.5)
[2019-08-05 05:12] LABS: BASOPHILS % (AUTO) 0.5 % (0.2-1.0); EOSINOPHILS # (AUTO) 0.1 x10^3/uL (0.0-0.2); EOSINOPHILS % (AUTO) 1.8 % (0.9-2.9); HEMATOCRIT 38.9 % (42.0-54.0); LYMPHOCYTES # (AUTO) 2.6 X10^3/uL (1.3-2.9); LYMPHOCYTES % (AUTO) 39.2 % (21.0-51.0); MEAN CORPUSCULAR HEMOGLOBIN 30.9 pg (27.0-34.0); MEAN CORPUSCULAR HGB CONC 33.5 g/dL (33.0-35.0); MEAN CORPUSCULAR VOLUME 92.2 fL (80.0-100.0); MONOCYTES # (AUTO) 0.8 x10^3/uL (0.3-0.8); MONOCYTES % (AUTO) 12.5 % (0.0-13.0); NEUTROPHILS # (AUTO) 3.1 x10^3/uL (2.2-4.8); PLATELET COUNT 169 X10^3/uL (150.0-450.0); RED BLOOD COUNT 4.22 X10^6/uL (4.7-6.0); RED CELL DISTRIBUTION WIDTH 13.3 % (11.6-16.5); WHITE BLOOD COUNT 6.7 X10^3/uL (3.6-10.0)
[2019-08-05 05:25] LABS: ALANINE AMINOTRANSFERASE 34 Units/L (12-78); ALBUMIN 3.4 g/dL (3.4-5.0); ALKALINE PHOSPHATASE 83 Units/L (46-116); ASPARTATE AMINO TRANSFERASE 21 Units/L (15-37); BLOOD UREA NITROGEN 20 mg/dL (7-18); CALCIUM 8.4 mg/dL (8.5-10.1); CHLORIDE 102 mmol/L (98-107); CREATININE 1.01 mg/dL (0.70-1.30); MAGNESIUM 1.9 mg/dL (1.7-2.9); SODIUM 138 mmol/L (136-145); TOTAL PROTEIN 7.3 g/dL (6.4-8.2); eGFR NON BLACK RACES > 60 (>60)
[2019-08-05] MEDS ORDERED: GLUCOPHAGE ONE (08:06)
[2019-08-05] MEDS ORDERED: ZESTRIL TAB 20 MG ONE (08:08)
[2019-08-05] MEDS: ISOSORBIDE DINITRATE PO SCH (08:53)
[2019-08-05] MEDS: HYDROCHLOROTHIAZIDE 12.5 MG CAP PO SCH (08:55)
[2019-08-05] MEDS: ZESTRIL TAB 20 MG PO SCH (08:55)
[2019-08-05] MEDS: MAGNESIUM SULFATE 1 GRAM/100 mL PREMIX 1 GM/100 ML BAG IV PRN ×2 (08:55→10:00)
[2019-08-05] MEDS: GLUCOPHAGE PO SCH (08:56)
[2019-08-05] MEDS: LOPRESSOR TAB 25 MG PO SCH (08:57)
[2019-08-05] MEDS ORDERED: COLCRYS TAB 0.6 MG PO SCH (09:00)
[2019-08-05] MEDS ORDERED: LIPITOR TAB 40 MG PO SCH (09:00)
[2019-08-05] MEDS ORDERED: PLAVIX PO SCH (09:00)
[2019-08-05] MEDS ORDERED: ACTOS PO SCH (09:00)
[2019-08-05] MEDS ORDERED: ASPIRIN EC 81 MG PO SCH (09:00)
[2019-08-05 12:20] VITALS: BP 121/76
== END 2019-08-05 12:25 | disposition home or self-care (01) ==
LOC: ER 09:18 → MED/SURG 09:18
PROVIDERS: ADMIT Internal Medicine; ATTEND Obstetrics & Gynecology Obstetrics
DX: Z79.899 Other long term (current) drug therapy; M10.9 Gout, unspecified; Z23 Encounter for immunization; R06.02 Shortness of breath; E11.65 Type 2 diabetes mellitus with hyperglycemia; R94.31 Abnormal electrocardiogram [ECG] [EKG]; I10 Essential (primary) hypertension; I25.118 Atherosclerotic heart disease of native coronary artery with other forms of angina pectoris; R07.2 Precordial pain; R20.0 Anesthesia of skin; Z79.01 Long term (current) use of anticoagulants
CPT/HCPCS: 36415; 71010; 71045; 80053; 81003; 82150; 82550; 82553; 82670; 83690; 83735; 84403; 84484; 85025; 85610; 85730; 90674; 90686; 93005; 94760; 96365; 96374; 99284; A4222; 90670; G0378; J2405; J3475

== ENCOUNTER 2020-09-30 11:05 | Observation (INO) ==
[2020-09-30] MEDS ORDERED: ANCEF VIAL 1 GRAM ONE (11:21)
[2020-09-30] MEDS ORDERED: NS 100 ML IV 100 ML IV ONE (11:22)
[2020-09-30] MEDS ORDERED: NS 1000 ML 1,000 ML ONE (11:22)
[2020-09-30 11:39] VITALS: BMI 46.6
[2020-09-30] MEDS ORDERED: FENTANYL INJ 100 mcg ONE (14:16)
[2020-09-30] MEDS ORDERED: NAROPIN 0.75% EPI ONE (14:17)
[2020-09-30] MEDS ORDERED: MARCAINE 0.25% INJ ONE (14:57)
[2020-09-30] MEDS ORDERED: NORCURON INJ 10 MG VIAL ONE ×2 (15:04→16:22)
[2020-09-30] MEDS ORDERED: ROBINUL ONE (15:04)
[2020-09-30] MEDS ORDERED: ULTANE GAS IN ONE (15:04)
[2020-09-30] MEDS ORDERED: NEOSTIGMINE INJ ONE (15:04)
[2020-09-30] MEDS ORDERED: VERSED ONE (15:04)
[2020-09-30] MEDS ORDERED: EPHEDRINE SULFATE INJ ONE (15:04)
[2020-09-30] MEDS ORDERED: DIPRIVAN VIAL ONE (15:04)
[2020-09-30] MEDS ORDERED: TORADOL 30 MG VIAL ONE (15:04)
[2020-09-30] MEDS ORDERED: ZOFRAN INJ 4 MG VIAL ONE (15:04)
[2020-09-30] MEDS ORDERED: XYLOCAINE 2 % (PLAIN) ONE (15:04)
[2020-09-30] MEDS ORDERED: QUELICIN (OR ANECTINE) ONE (15:04)
[2020-09-30] MEDS ORDERED: OFIRMEV IV 1000 MG VIAL 1,000 MG/100 ML VIAL IV ONE (15:57)
[2020-09-30] MEDS ORDERED: LR 1000 ML IV 1,000 ML IV ONE ×2 (16:44→18:42)
[2020-09-30] MEDS ORDERED: FENTANYL INJ 250 mcg ONE (17:27)
[2020-09-30] MEDS ORDERED: HYDROGEN PEROXIDE 3% ONE (17:38)
[2020-09-30] MEDS ORDERED: DILAUDID INJ ONE (19:01)
[2020-09-30] MEDS ORDERED: ZOFRAN INJ 4 MG VIAL IVP PRN (19:09)
[2020-09-30] MEDS ORDERED: DILAUDID INJ IVP PRN (19:09)
[2020-09-30] MEDS ORDERED: PHENERGAN INJ 25 MG IM PRN (19:09)
[2020-09-30] MEDS ORDERED: BENADRYL INJ 50 MG VIAL IVP PRN (19:09)
[2020-09-30] MEDS ORDERED: REGLAN INJ 10 MG VIAL IVP PRN (19:09)
[2020-09-30] MEDS ORDERED: COLACE CAP 100 MG PO SCH (21:00)
[2020-09-30] MEDS: NS 1000 ML 1,000 ML IV SCH (21:28)
[2020-09-30] MEDS: ROXICODONE TAB 5 MG PO PRN (21:30)
[2020-09-30] MEDS: DILAUDID INJ IVP PRN (22:50)
[2020-10-01] MEDS: ROXICODONE TAB 5 MG PO PRN ×3 (01:47→09:45)
[2020-10-01] MEDS: DILAUDID INJ IVP PRN ×2 (04:42→08:24)
[2020-10-01] MEDS: NS 1000 ML 1,000 ML IV SCH ×2 (04:42→11:33)
[2020-10-01 05:12] LABS: BASOPHILS # (AUTO) 0.1 X10^3/uL (0.0-0.1); BASOPHILS % (AUTO) 0.8 % (0.2-1.0); EOSINOPHILS # (AUTO) 0.1 x10^3/uL (0.0-0.2); EOSINOPHILS % (AUTO) 0.6 % (0.9-2.9); HEMATOCRIT 40.4 % (42.0-54.0); HEMOGLOBIN 13.8 g/dL (13.5-18.0); LYMPHOCYTES # (AUTO) 2.3 X10^3/uL (1.3-2.9); MEAN CORPUSCULAR HEMOGLOBIN 31.7 pg (27.0-34.0); MEAN CORPUSCULAR HGB CONC 34.1 g/dL (33.0-35.0); MEAN PLATELET VOLUME 8.9 fL (7.4-11.0); MONOCYTES # (AUTO) 1.1 x10^3/uL (0.3-0.8); MONOCYTES % (AUTO) 10.4 % (0.0-13.0); NEUTROPHILS # (AUTO) 7.3 x10^3/uL (2.2-4.8); NEUTROPHILS % (AUTO) 67.2 % (42.0-75.0); PLATELET COUNT 191 X10^3/uL (150.0-450.0); RED BLOOD COUNT 4.35 X10^6/uL (4.7-6.0); WHITE BLOOD COUNT 10.8 X10^3/uL (3.6-10.0)
[2020-10-01 05:25] LABS: ALANINE AMINOTRANSFERASE 33 Units/L (12-78); ALBUMIN 3.3 g/dL (3.4-5.0); ALKALINE PHOSPHATASE 92 Units/L (46-116); ASPARTATE AMINO TRANSFERASE 24 Units/L (15-37); BLOOD UREA NITROGEN 20 mg/dL (7-18); CALCIUM 8.3 mg/dL (8.5-10.1); CARBON DIOXIDE 27.6 mmol/L (21-32); CHLORIDE 99 mmol/L (98-107); COR CA(FOR HYPOALB) 8.9 mg/dL (8.5-10.1); COR NA(FOR HYPERGLY) 136 mmol/L (136-145); CREATININE 1.57 mg/dL (0.70-1.30); SODIUM 136 mmol/L (136-145); eGFR NON BLACK RACES 51 (>60)
[2020-10-01] MEDS ORDERED: DILAUDID INJ IVP PRN (09:27)
[2020-10-01] MEDS ORDERED: ACTOS PO SCH (09:30)
[2020-10-01] MEDS ORDERED: ASTELIN NASAL SPRAY ENOSTRIL SCH (09:30)
[2020-10-01] MEDS ORDERED: PATIENT'S HOME MEDICATION (Lisinopril-Hydrochlorothiazide 20-12.5 mg tablet) PO SCH (09:30)
[2020-10-01] MEDS ORDERED: LEXAPRO PO SCH (09:30)
[2020-10-01] MEDS ORDERED: ISOSORBIDE DINITRATE PO SCH (09:30)
[2020-10-01] MEDS ORDERED: COLACE CAP 100 MG PO SCH (10:00)
[2020-10-01] MEDS ORDERED: HYDROCHLOROTHIAZIDE 12.5 MG CAP PO SCH (10:00)
[2020-10-01] MEDS ORDERED: ZESTRIL TAB 20 MG PO SCH (10:00)
[2020-10-01] MEDS ORDERED: PEPCID TAB 20 MG PO SCH (10:00)
[2020-10-01] MEDS ORDERED: PLAVIX PO SCH (10:00)
[2020-10-01] MEDS ORDERED: LOPRESSOR TAB 25 MG PO SCH (10:00)
[2020-10-01] MEDS ORDERED: NORVASC TAB 5 MG PO SCH (10:00)
[2020-10-01] MEDS ORDERED: LIPITOR TAB 40 MG PO SCH (10:00)
[2020-10-01] MEDS ORDERED: ARIMIDEX PO SCH (10:00)
[2020-10-01] MEDS ORDERED: LOVENOX INJ 40 MG SYR SC SCH (11:00)
[2020-10-01] MEDS ORDERED: ZESTRIL TAB 20 MG ONE (11:09)
[2020-10-01] MEDS ORDERED: LEXAPRO ONE (11:09)
[2020-10-01] MEDS ORDERED: ASTELIN NASAL SPRAY ENOSTRIL ONE (11:10)
[2020-10-01] MEDS ORDERED: BENADRYL INJ 50 MG VIAL IVP ONE (11:54)
[2020-10-01] MEDS ORDERED: BENADRYL INJ 50 MG VIAL ONE (12:15)
[2020-10-01 12:54] VITALS: BP 145/81
[2020-10-01] MEDS ORDERED: BETADINE SOLN ONE (13:23)
[2020-10-01] MEDS ORDERED: NS IRRIGATION* 500 ML IR ONE (13:23)
--- NOTE | 2020-10-01 23:20 | MD.NOTE ---
Provider Note Note Note: Mr. Lockett seen resting comfortably at bedside w/ RLE elevated x 2 pillows. NAD AAO x 3 and denies N/V/F/C/SOB. Pt relates that his pain was 5/10 yesterday evening but it was much better controlled once adjusted his Dilaudid dose from 1mg IV Q4h to 2mg IV Q3h PRN for severe pain. Assessment: - POD #1 s/p Midfoot fusion, calcaneal osteotomy, MAYELA and application of Ex-fix - Ex fix in tact w/ all half pins and wires in tact - sanguineous drainage visible around pin/wire sites as well as edema/erythema consistent w/ post-surgical changes. Plan: - Rx for Oxycodone and Zofran in chart - PT eval appreciated - surgical dressing removed, pin sites cleansed and re-dressed w/ 4x4 gauze, xeroform along incisions and covered w/ large stockinette - I explained to that he was to keep ex fix dry at all times and leave dressing in tact until his first post op appointment next week w/ - expressed an understanding of the aforementioned plan and agrees that his pain is well controlled and is in agreement w/ plan for d/c today. - spoke w/ nurse case manager at bedside regarding d/c plan - pt clear for d/c from podiatric standpoint
[2020-10-02] MEDS ORDERED: WELLBUTRIN XL 300 MG (DAILY) PO SCH (09:00)
== END 2020-10-01 15:30 | disposition home or self-care (01) ==
LOC: MED/SURG 11:05 → SURG1 11:05 → MED/SURG 19:37
PROVIDERS: ADMIT Obstetrics & Gynecology Obstetrics; ATTEND Obstetrics & Gynecology Obstetrics
PROC: ACHTENR (ICD-10-PCS; 2020-09-30 13:45)
DX: E11.65 Type 2 diabetes mellitus with hyperglycemia; M19.071 Primary osteoarthritis, right ankle and foot; M21.6X1 Other acquired deformities of right foot; R26.89 Other abnormalities of gait and mobility; G89.18 Other acute postprocedural pain; I10 Essential (primary) hypertension; I25.10 Atherosclerotic heart disease of native coronary artery without angina pectoris; F41.8 Other specified anxiety disorders; M21.071 Valgus deformity, not elsewhere classified, right ankle

== ENCOUNTER 2022-05-01 09:30 | Inpatient (IN) ==
[2022-05-01 10:14] LABS: BILIRUBIN,URINE NEGATIVE (NEGATIVE); BLOOD/HEMOGLOBIN,URINE NEGATIVE (NEGATIVE); GLUCOSE, URINE 4+ (NEGATIVE); KETONES,URINE 2+ (NEGATIVE); LEUKOCYTE ESTERASE ,URINE NEGATIVE (NEGATIVE); NITRITES,URINE NEGATIVE (NEGATIVE); PROTEIN,URINE NEGATIVE (NEGATIVE); UROBILINOGEN,URINE NORMAL (NORMAL)
[2022-05-01 10:15] LABS: APPEARANCE,URINE CLEAR (CLEAR); COLOR,URINE STRAW (YELLOW); MONOCYTES # (AUTO) 0.1 x10^3/uL (0.3-0.8); MONOCYTES % (AUTO) 0.9 % (0.0-13.0); NEUTROPHILS % (AUTO) 91.6 % (42.0-75.0)
[2022-05-01 10:18] LABS: BASOPHILS # (AUTO) 0.1 X10^3/uL (0.0-0.1); BASOPHILS % (AUTO) 0.5 % (0.2-1.0); HEMATOCRIT 40.4 % (42.0-54.0); HEMOGLOBIN 13.3 g/dL (13.5-18.0); LYMPHOCYTES # (AUTO) 0.8 X10^3/uL (1.3-2.9); MEAN CORPUSCULAR HEMOGLOBIN 31.5 pg (27.0-34.0); MEAN CORPUSCULAR HGB CONC 32.9 g/dL (33.0-35.0); MEAN CORPUSCULAR VOLUME 95.6 fL (80.0-100.0); MEAN PLATELET VOLUME 11.4 fL (7.4-11.0); NEUTROPHILS # (AUTO) 10.1 x10^3/uL (2.2-4.8); RED BLOOD COUNT 4.23 X10^6/uL (4.7-6.0); RED CELL DISTRIBUTION WIDTH 13.4 % (11.6-16.5); WHITE BLOOD COUNT 11.1 X10^3/uL (3.6-10.0)
[2022-05-01] MEDS ORDERED: NS 1,000 ML IV 1,000 ML IV ONE (10:19)
--- NOTE | 2022-05-01 10:19 | DR.WEAKNES ---
HPI Time Seen Time Seen by Provider: 05/01/22 10:05 Primary Care Physician Primary Care Physician: MD AMBER HPI Comment HPI Comment: A 46 y/o male presents via EMS with 2 c/o: 1). elevated BS since yesterday. My sachine shows :high." He admitsto increase consumption of juicy, juices for past several days. He states that he has been taking his diabetic meds. as directed. 2). is of shaking to LUE. This also started yesterday. He denies loss of motor strength to any of his limbs. He's abble to ambulate and his speech is clear. He has had paresthesia. Reviewed Nurses Notes Reviewed: Yes Source History Provided: Patient Mode of Arrival Mode of Arrival: EMS Timing Symptom Onset: Known Onset of Symptoms Start Date: 04/30/22 Context Stroke Symptoms: None Associated Signs and Symptoms Associated Signs and Symptoms: None PMH PMH Past Medical History: Coronary Artery Disease, Diabetes (Type 2), Gout, Hypertension and NH Past Surgical History: Yes Surgical History: Angioplasty/Stents Family History Family Medical History: Diabetes Mellitus Social History Do you use any recreational Drugs:: Yes (MARIJUANA) Travel Risk Coronavirus risk:travel/contact w/high risk person: No Has patient experienced Coronavirus symptoms: No ROS Review of Systems Constitutional: Weakness Eyes: No Symptoms Reported ENTM: No Symptoms Reported Respiratoy: No Symptoms Reported Cardiovascular: No Symptoms Reported Gastrointestinal/Abdominal: No Symptoms Reported Genitourinary: No Symptoms Reported Neurological: Tremors (LUE) Musculoskeletal: No Symptoms Reported Integumentary: No Symptoms Reported Hematologic/Lymphatic: No Symptoms Reported Endocrine: No Symptoms Reported Psychiatric: No Symptoms Reported PE Vital Signs Vitals: Temperature 97.8 F Pulse Rate 91 Respiratory Rate 20 Blood Pressure [Left Arm] 125/66 Blood Pressure [Right Arm] 145/81 Blood Pressure 117/66 O2 Sat by Pulse Oximetry 100 General Limitations: No Limitations General Appearance: Alert, In No Apparent Distress and Obese Head Head Exam: Normal Inspection, Atraumatic and Normocephalic Eyes Eye exam: Normal Appearance and EOMI ENT ENT Exam: Normal Exam, Normal Oropharynx, Normal External Ear Exam and Mucous Membranes Moist Neck Neck Exam: Normal Inspection, Full ROM and Trachea Midline Chest Chest Inspection: Normal Inspection and Symmetric Chest Wall Rise Respiratory Respiratory Exam: Normal Lung Sounds Bilat Cardiovascular Cardiovascular Exam: Regular Rate, Normal Rhythm, Normal Heart Sounds, +S1 and +S2 Abdominal Exam Abdominal Exam: Normal Inspection, Normal Bowel Sounds, Soft and Other (obese with pannus adiposus) Extremities Extremities Exam: Normal Inspection and Full ROM Back Back Exam: Normal Inspection and Full ROM Neurologic Neurological Exam: Alert, Oriented X3 and Reflexes Normal Psychiatric Psychiatric Exam: Normal Affect and Normal Mood Skin Skin Exam: Dry and Intact COURSE Treatment Treatment: He is receiving NS IVF Bolus, short acting Insulin, Insulin drip. The pt. was informed of his lab. values. I discussed with on-call MD, who agrees with current care and need for hospitalization. He will be admitted to the ICU. Education/Counseling Education/Counseling: Patient, Family, Education and Counseling Educated On: Treatment, Diagnosis, Prognosis and Needs for Follow Up ROR Labs Reviewed Result Diagrams: 05/01/22 10:03 05/01/22 10:03 Laboratory: WBC 11.1 X10^3/uL (3.6-10.0) H 05/01/22 10:03 RBC 4.23 X10^6/uL (4.7-6.0) L 05/01/22 10:03 Hgb 13.3 g/dL (13.5-18.0) L 05/01/22 10:03 Hct 40.4 % (42.0-54.0) L 05/01/22 10:03 MCV 95.6 fL (80.0-100.0) 05/01/22 10:03 MCH 31.5 pg (27.0-34.0) 05/01/22 10:03 MCHC 32.9 g/dL (33.0-35.0) L 05/01/22 10:03 RDW 13.4 % (11.6-16.5) 05/01/22 10:03 Plt Count 193 X10^3/uL (150.0-450.0) 05/01/22 10:03 Plt Count Comment Adequate (ADEQUATE) 05/01/22 10:03 MPV 11.4 fL (7.4-11.0) H 05/01/22 10:03 Neut % (Auto) 91.6 % (42.0-75.0) H 05/01/22 10:03 Lymph % (Auto) 7.0 % (21.0-51.0) L 05/01/22 10:03 [place] % (Auto) 0.9 % (0.0-13.0) 05/01/22 10:03 Eos % (Auto) 0.0 % (0.9-2.9) L 05/01/22 10:03 Baso % (Auto) 0.5 % (0.2-1.0) 05/01/22 10:03 Neut # (Auto) 10.1 x10^3/uL (2.2-4.8) H 05/01/22 10:03 Lymph # (Auto) 0.8 X10^3/uL (1.3-2.9) L 05/01/22 10:03 [place] # (Auto) 0.1 x10^3/uL (0.3-0.8) L 05/01/22 10:03 Eos # (Auto) 0.0 x10^3/uL (0.0-0.2) 05/01/22 10:03 Baso # (Auto) 0.1 X10^3/uL (0.0-0.1) 05/01/22 10:03 Absolute Nucleated RBC 0.0 /100WBC 05/01/22 10:03 Total Counted 100 05/01/22 10:03 Neutrophils % (Manual) 95 % (39-76) H 05/01/22 10:03 Lymphocytes % (Manual) 5 % (13-43) L 05/01/22 10:03 Plt Morphology Comment Normal (NORMAL) 05/01/22 10:03 RBC Morphology Abnormal (NORMAL) 05/01/22 10:03 Stomatocytes Slight A 05/01/22 10:03 PT 12.5 SECONDS (11.8-14.3) 05/01/22 10:03 INR Target Range - 05/01/22 10:03 INR 0.95 (0.8-1.3) 05/01/22 10:03 APTT 25.0 SECONDS (22.9-36.5) 05/01/22 10:03 PTT Comment - 05/01/22 10:03 D-Dimer 0.49 ug/ml (0.0-0.57) 05/01/22 10:03 Sodium 114 mmol/L (136-145) L* 05/01/22 10:03 Corrected Sodium 140 mmol/L (136-145) 05/01/22 10:03 Potassium 5.2 mmol/L (3.5-5.1) H 05/01/22 10:03 Chloride 79 mmol/L (98-107) L* 05/01/22 10:03 Carbon Dioxide 21.9 mmol/L (21-32) 05/01/22 10:03 BUN 11 mg/dL (7-18) 05/01/22 10:03 Creatinine 1.43 mg/dL (0.70-1.30) H 05/01/22 10:03 Est GFR (MDRD) Af Amer > 60 (>60) 05/01/22 10:03 Est GFR (MDRD) Non-Af 56 (>60) L 05/01/22 10:03 Glucose 1188 mg/dL (65-99) H* 05/01/22 10:03 POC Glucose (mg/dL) > 600 mg/dL (65-99) 05/01/22 10:00 Calcium 8.7 mg/dL (8.5-10.1) 05/01/22 10:03 Corrected Calcium TNP 05/01/22 10:03 Total Bilirubin 0.50 mg/dL (0.2-1.0) 05/01/22 10:03 AST 12 Units/L (15-37) L 05/01/22 10:03 ALT 48 Units/L (12-78) 05/01/22 10:03 Alkaline Phosphatase 205 Units/L (46-116) H 05/01/22 10:03 Total Protein 7.3 g/dL (6.4-8.2) 05/01/22 10:03 Albumin 3.4 g/dL (3.4-5.0) 05/01/22 10:03 Globulin 3.9 g/dL (2.5-4.5) 05/01/22 10:03 Albumin/Globulin Ratio 0.9 Ratio (1.1-2.1) L 05/01/22 10:03 Specimen Type Clean catch urine 05/01/22 10:03 Urine Color Straw (YELLOW) 05/01/22 10:03 Urine Appearance Clear (CLEAR) 05/01/22 10:03 Urine pH 6.0 (5.0 - 8.0) 05/01/22 10:03 Ur Specific [place] 1.010 (1.000-1.030) 05/01/22 10:03 Urine Protein Negative (NEGATIVE) 05/01/22 10:03 Urine Glucose (UA) 4+ (NEGATIVE) 05/01/22 10:03 Urine Ketones 2+ (NEGATIVE) 05/01/22 10:03 Urine Blood Negative (NEGATIVE) 05/01/22 10:03 Urine Nitrite Negative (NEGATIVE) 05/01/22 10:03 Urine Bilirubin Negative (NEGATIVE) 05/01/22 10:03 Urine Urobilinogen Normal (NORMAL) 05/01/22 10:03 Ur Leukocyte Esterase Negative (NEGATIVE) 05/01/22 10:03 Acetone, Semi-Quant Small (NEGATIVE) H 05/01/22 10:03 EKG Rate: 92 Topping: LAD Rhythm: NSR Block: None Hypertrophy: None ST: Old, Inf and Infarct Opioid Opioid Risk Tool Age ([place] box if 16-45): No History of Preadolescent Sexual Abuse: No Total: 0 Total Score Risk Category: Low Risk Copyright: [facility] predicting aberrant behaviors Discharge Plan Diagnosis Discharge Problem: DKA, type 2, Hypertension, CAD (coronary artery disease) Discharge Plan Patient Disposition: ADMITTED INPATIENT Condition: Stable Orders to Discharge Patient Discharge Orders: Transfer (Routine); Ordered 05/01/22 Ordered By: BEKA WOODS ADDITIONAL NOTES Additional Notes Additional Notes: Name: ALF FREDERICK CAcct#: [id number]: [id number]: [id number]: MLocation: EROrder Number(s): [id number](s):BRAIN W/O CON Ordering Physician: BEKA WOODS Primary Care: JENNIFER CLARK Service Date: 05/01/22 Service Time: 931 HISTORY Stroke like symptoms, weakness, loss of motor function to left upper arm. STUDY BRAIN W/O CON COMPARISON 09/24/2021. TECHNIQUE Multipl e axial images of the brain were obtained from the skull base to the vertex without administration of IV contrast. Dose reduction techniques including Automated Exposure Control (AEC) and adjustment of mA and kV were utilized. FINDINGS No acute intraparenchymal hemorrhage or mass can be identified. No extra-axial fluid collections are seen. No alteration in the attenuation of the brain parenchyma can be identified to suggest acute or subacute ischemic change. The ventricular system is symmetric and nondilated. There is opacification of the inferior mastoid air cells on the left. Paranasal sinuses mastoid air cells are otherwise normally developed and well aerated bilaterally. The extracranial structures are grossly unremarkable. IMPRESSION 1. No acute intracranial abnormality. 2. Opacification of inferior mastoid air cells on the left. Clinical correlation for mastoiditis is requested. Electronically signed by: PRABHAKAR LOBATO (May 01, 2022 10:40:18) Report Electronically signed: 05/01/22 1041 CC: Beka Woods
[2022-05-01] MEDS ORDERED: NS 1,000 ML IV 1,000 ML ONE ×2 (10:24→11:35)
[2022-05-01 10:26] LABS: ALANINE AMINOTRANSFERASE 48 Units/L (12-78); ALBUMIN 3.4 g/dL (3.4-5.0); ALKALINE PHOSPHATASE 205 Units/L (46-116); ASPARTATE AMINO TRANSFERASE 12 Units/L (15-37); BLOOD UREA NITROGEN 11 mg/dL (7-18); CALCIUM 8.7 mg/dL (8.5-10.1); CARBON DIOXIDE 21.9 mmol/L (21-32); CREATININE 1.43 mg/dL (0.70-1.30); TOTAL PROTEIN 7.3 g/dL (6.4-8.2); eGFR NON BLACK RACES 56 (>60)
[2022-05-01] MEDS ORDERED: NovoLIN R (or HumuLIN R) ONE ×4 (10:34→11:12)
[2022-05-01 10:41] VITALS: BMI 48.7
--- NOTE | 2022-05-01 10:41 | CT ---
HISTORYStroke like symptoms, weakness, loss of motor function to left upper arm.STUDYBRAIN W/O [id number]/26/2021.TECHNIQUEMultipl e axial images of the brain were obtained from the skull base to the vertex without administration of IV contrast. Dose reduction techniques including Automated Exposure Control (AEC) and adjustment of mA and kV were utilized.FINDINGSNo acute intraparenchymal hemorrhage or mass can be identified. No extra-axial fluid collections are seen. No alteration in the attenuation of the brain parenchyma can be identified to suggest acute or subacute ischemic change. The ventricular system is symmetric and nondilated. There is opacification of the inferior mastoid air cells on the left. Paranasal sinuses mastoid air cells are otherwise normally developed and well aerated bilaterally. The extracranial structures are grossly unremarkable.IMPRESSION1. No acute intracranial abnormality.2. Opacification of inferior mastoid air cells on the left. Clinical correlation for mastoiditis is requested.Electronically signed by: PRABHAKAR LOBATO (May 01, 2022 10:40:18)
[2022-05-01] MEDS ORDERED: NovoLIN R (or HumuLIN R) SUBCUT ONE ×2 (10:42→11:06)
[2022-05-01 10:52] LABS: COR NA(FOR HYPERGLY) 140 mmol/L (136-145)
[2022-05-01 10:55] LABS: CHLORIDE 79 mmol/L (98-107); SODIUM 114 mmol/L (136-145)
[2022-05-01 11:06] LABS: PLATELET MORPHOLOGY COMMENT NORMAL (NORMAL)
[2022-05-01 11:07] LABS: STOMATOCYTES SLIGHT
[2022-05-01] MEDS ORDERED: NovoLIN R (or HumuLIN R) IV PRN ×2 (11:08→13:48)
[2022-05-01] MEDS ORDERED: MYXREDLIN 100 UNIT/100 ML BAG 100 UNIT/100 ML PLAST..BAG IV PRN ×2 (11:08→13:48)
[2022-05-01] MEDS ORDERED: D50W ABBOJECT SYR IV PRN ×3 (11:08→14:13)
[2022-05-01] MEDS ORDERED: MYXREDLIN 100 UNIT/100 ML BAG 100 UNIT/100 ML PLAST..BAG IV ONE (11:34)
[2022-05-01] MEDS: MYXREDLIN 100 UNIT/100 ML BAG 100 UNIT/100 ML PLAST..BAG IV PRN ×2 (11:50→23:27)
[2022-05-01] MEDS: NS 1,000 ML IV 1,000 ML IV SCH ×2 (14:39→23:27)
[2022-05-01 14:47] LABS: ABG BASE EXCESS -3.6 mmol/L (-2.0-2.0); ABG HCO3 20.4 mmol/L (22-26)
[2022-05-01 14:48] LABS: ABG ALLEN TEST POS
--- NOTE | 2022-05-01 15:56 | RAD ---
HISTORYStroke-like symptomsSTUDYAP chestCOMPARISONNovember 2020FINDINGSStable upper-normal heart size with dilated aorta. The pulmonary vessels are distended. There is no evidence for pneumonia or pleural effusion.IMPRESSIONStable borderline cardiomegaly. The dilatation of upper lobe vessels may be related to significant venous hypertension although a supine patient position can produce similar findings; patient position on this exam is not specified. Follow-up suggested to determine resolution or stability.Electronically signed by: BELKYS EDDY (May 01, 2022 15:54:43)
--- NOTE | 2022-05-01 18:55 | DR.H&P ---
H&P History & Physical for Day of: H&P Date: 05/01/22 Chief Complaint Chief Complaint: Blood sugar machine will read sugar level. Allergies Allergies Allergy/AdvReac Type Severity Reaction Status Date / Time Penicillins Allergy Verified 11/24/19 19:01 History of Present Illness History of Present Illness: This is a 46-year-old black male who comes in the emergency department reporting that he has been glucometer would not read his blood sugar. And that his arms are feeling shaky and not under full control. Work-up revealed he had a blood sugar greater than 1100,CT scan of head was normal. Serum acetone was done and showed a small amount of acetone. Because of this we elected to go ahead and admitted to ICU and start him on an insulin drip protocol. Also noted his potassium was slightly high on admission which the IV insulin had should help correct that. Past Medical History Past Medical History: Coronary Artery Disease, Diabetes (Type 2), Gout, Hypertension and [place] Past Surgical History Surgical History: Angioplasty/Stents and Other Family History Family Medical History: Diabetes Mellitus, Cancer, [place] and Hypertension Social History Does patient currently use any type of tobacco product: Yes Have you used tobacco products in the last 12 months: Yes Type of Tobacco Use: Smokeless Does any household member use tobacco: No Alcohol Use: Occasionally Drug Use: None Medications Home Medications: Penicillins Allergy (Verified 11/24/19 19:01) CONTINUE taking the following medications doxepin 25 mg capsule 1 - 2 cap PO QPM 05/01/22 [History] ezetimibe 10 mg tablet 1 tab PO QDAY 05/01/22 [History] isosorbide mononitrate 60 mg tablet,extended release 24 hr 1 tab PO QDAY 05/01/22 [History] lisinopril 20 mg tablet 20 mg PO DAILY 05/01/22 [History] metformin 500 mg tablet,extended release 24 hr 2 tab PO BID 05/01/22 [History] pantoprazole 40 mg tablet,delayed release 1 tab PO QDAY 05/01/22 [History] prasugrel 10 mg tablet 1 tab PO QDAY 05/01/22 [History] rosuvastatin 20 mg tablet 1 tab PO QPM 05/01/22 [History] tadalafil 20 mg tablet 20 mg PO DAILY PRN 05/01/22 [History] Labs Result Diagrams: 05/01/22 10:03 05/01/22 18:13 Labs: Laboratory WBC 11.1 X10^3/uL (3.6-10.0) H 05/01/22 10:03 RBC 4.23 X10^6/uL (4.7-6.0) L 05/01/22 10:03 Hgb 13.3 g/dL (13.5-18.0) L 05/01/22 10:03 Hct 40.4 % (42.0-54.0) L 05/01/22 10:03 MCV 95.6 fL (80.0-100.0) 05/01/22 10:03 MCH 31.5 pg (27.0-34.0) 05/01/22 10:03 MCHC 32.9 g/dL (33.0-35.0) L 05/01/22 10:03 RDW 13.4 % (11.6-16.5) 05/01/22 10:03 Plt Count 193 X10^3/uL (150.0-450.0) 05/01/22 10:03 Plt Count Comment Adequate (ADEQUATE) 05/01/22 10:03 MPV 11.4 fL (7.4-11.0) H 05/01/22 10:03 Neut % (Auto) 91.6 % (42.0-75.0) H 05/01/22 10:03 Lymph % (Auto) 7.0 % (21.0-51.0) L 05/01/22 10:03 [place] % (Auto) 0.9 % (0.0-13.0) 05/01/22 10:03 Eos % (Auto) 0.0 % (0.9-2.9) L 05/01/22 10:03 Baso % (Auto) 0.5 % (0.2-1.0) 05/01/22 10:03 Neut # (Auto) 10.1 x10^3/uL (2.2-4.8) H 05/01/22 10:03 Lymph # (Auto) 0.8 X10^3/uL (1.3-2.9) L 05/01/22 10:03 [place] # (Auto) 0.1 x10^3/uL (0.3-0.8) L 05/01/22 10:03 Eos # (Auto) 0.0 x10^3/uL (0.0-0.2) 05/01/22 10:03 Baso # (Auto) 0.1 X10^3/uL (0.0-0.1) 05/01/22 10:03 Absolute Nucleated RBC 0.0 /100WBC 05/01/22 10:03 Total Counted 100 05/01/22 10:03 Neutrophils % (Manual) 95 % (39-76) H 05/01/22 10:03 Lymphocytes % (Manual) 5 % (13-43) L 05/01/22 10:03 Plt Morphology Comment Normal (NORMAL) 05/01/22 10:03 RBC Morphology Abnormal (NORMAL) 05/01/22 10:03 Stomatocytes Slight A 05/01/22 10:03 PT 12.5 SECONDS (11.8-14.3) 05/01/22 10:03 INR Target Range - 05/01/22 10:03 INR 0.95 (0.8-1.3) 05/01/22 10:03 APTT 25.0 SECONDS (22.9-36.5) 05/01/22 10:03 PTT Comment - 05/01/22 10:03 D-Dimer 0.49 ug/ml (0.0-0.57) 05/01/22 10:03 Sample Site Lrad 05/01/22 14:42 ABG pH 7.400 (7.35-7.45) 05/01/22 14:42 ABG pCO2 33.0 mmHg (35.0-45.0) L 05/01/22 14:42 ABG pO2 86.0 mmHg (80.0-100.0) 05/01/22 14:42 ABG HCO3 20.4 mmol/L (22-26) L 05/01/22 14:42 ABG O2 Saturation 97.0 % (90-100) 05/01/22 14:42 ABG Base Excess -3.6 mmol/L (-2.0-2.0) L 05/01/22 14:42 Robert Test Pos 05/01/22 14:42 A-a Gradient 22.0 mmHg 05/01/22 14:42 FiO2 21.0 05/01/22 14:42 Blood Gas Comments Pt corrine well elj 05/01/22 14:42 Sodium 114 mmol/L (136-145) L* 05/01/22 10:03 Corrected Sodium 140 mmol/L (136-145) 05/01/22 10:03 Potassium 5.2 mmol/L (3.5-5.1) H 05/01/22 10:03 Chloride 79 mmol/L (98-107) L* 05/01/22 10:03 Carbon Dioxide 21.9 mmol/L (21-32) 05/01/22 10:03 BUN 11 mg/dL (7-18) 05/01/22 10:03 Creatinine 1.43 mg/dL (0.70-1.30) H 05/01/22 10:03 Est GFR (MDRD) Af Amer > 60 (>60) 05/01/22 10:03 Est GFR (MDRD) Non-Af 56 (>60) L 05/01/22 10:03 Glucose 407 mg/dL (65-99) H 05/01/22 18:13 POC Glucose (mg/dL) 421 mg/dL (65-99) H 05/01/22 17:58 Calcium 8.7 mg/dL (8.5-10.1) 05/01/22 10:03 Corrected Calcium TNP 05/01/22 10:03 Magnesium 2.0 mg/dL (1.7-2.9) 05/01/22 16:25 Total Bilirubin 0.50 mg/dL (0.2-1.0) 05/01/22 10:03 AST 12 Units/L (15-37) L 05/01/22 10:03 ALT 48 Units/L (12-78) 05/01/22 10:03 Alkaline Phosphatase 205 Units/L (46-116) H 05/01/22 10:03 Total Protein 7.3 g/dL (6.4-8.2) 05/01/22 10:03 Albumin 3.4 g/dL (3.4-5.0) 05/01/22 10:03 Globulin 3.9 g/dL (2.5-4.5) 05/01/22 10:03 Albumin/Globulin Ratio 0.9 Ratio (1.1-2.1) L 05/01/22 10:03 Specimen Type Clean catch urine 05/01/22 10:03 Urine Color Straw (YELLOW) 05/01/22 10:03 Urine Appearance Clear (CLEAR) 05/01/22 10:03 Urine pH 6.0 (5.0 - 8.0) 05/01/22 10:03 Ur Specific [place] 1.010 (1.000-1.030) 05/01/22 10:03 Urine Protein Negative (NEGATIVE) 05/01/22 10:03 Urine Glucose (UA) 4+ (NEGATIVE) 05/01/22 10:03 Urine Ketones 2+ (NEGATIVE) 05/01/22 10:03 Urine Blood Negative (NEGATIVE) 05/01/22 10:03 Urine Nitrite Negative (NEGATIVE) 05/01/22 10:03 Urine Bilirubin Negative (NEGATIVE) 05/01/22 10:03 Urine Urobilinogen Normal (NORMAL) 05/01/22 10:03 Ur Leukocyte Esterase Negative (NEGATIVE) 05/01/22 10:03 Acetone, Semi-Quant Small (NEGATIVE) H 05/01/22 10:03 SARS-CoV-2 (PCR) Positive (NEGATIVE) A 05/01/22 10:25 Review of Systems Constitutional: Weakness and Malaise Eyes: No Symptoms Reported ENT: No Symptoms Reported Respiratory: No Symptoms Reported Cardiovascular: No Symptoms Reported Gastrointestinal: No Symptoms Reported Genitourinary: No Symptoms Reported Musculoskeletal: No Symptoms Reported Skin: No Symptoms Reported Neurological: Weakness, Numbness and Incoordination Physical Exam Vital Signs: Temperature 98.3 F Pulse Rate [Left Brachial] 98 Pulse Rate 99 Respiratory Rate 20 Blood Pressure [Left Arm] 140/81 Blood Pressure [Right Arm] 145/81 Blood Pressure 109/63 O2 Sat by Pulse Oximetry 98 Oriented: Normal Ear: Normal Nose: Normal Throat: Normal Respiratory: Clear Throughout Cardiovascular: Normal : Normal Auscultation: Bowel Sounds: Normal Palpation: Normal Tenderness: Normal Skin: Normal Musculoskeletal: Normal Psychiatric: Normal Mood Description: Calm Affect: Angry Speech Pattern: Clear Assessment/Plan (1) DKA (diabetic ketoacidosis): Status: Acute Plan: IV insulin drip per protocol. Repeat serum acetone in a.m. and I will check ABG after the patient gets to the floor to make sure he is not currently acidotic. (2) Hypertension: Status: Acute Plan: Monitor blood pressure at this time. I will resume his home blood pressure medicines after he gets to the floor. (3) Hyperkalemia: Status: Acute Plan: IV hydration along with insulin drip which will help decrease patient's potassium. (4) Dehydration: Status: Acute Plan: IV hydration with normal saline. Review H&P Reviewed: Yes Patient was examined?: Yes
[2022-05-01] MEDS: CRESTOR TAB 10 MG PO SCH (20:20)
[2022-05-01] MEDS: PROTONIX TAB 40 MG PO SCH (20:21)
[2022-05-01] MEDS: ISOSORBIDE MONONITRATE ER 24-HR PO SCH (20:21)
[2022-05-01] MEDS: XANAX PO PRN (20:21)
[2022-05-01] MEDS: NORCO 10/325 TAB PO PRN (20:22)
[2022-05-01 23:36] LABS: BLOOD UREA NITROGEN 10 mg/dL (7-18); CALCIUM 8.2 mg/dL (8.5-10.1); CARBON DIOXIDE 25.8 mmol/L (21-32); CHLORIDE 95 mmol/L (98-107); COR NA(FOR HYPERGLY) 140 mmol/L (136-145); CREATININE 1.12 mg/dL (0.70-1.30); SODIUM 133 mmol/L (136-145); eGFR NON BLACK RACES > 60 (>60)
[2022-05-02 00:15] LABS: ABG ALLEN TEST POS; ABG BASE EXCESS 3.7 mmol/L (-2.0-2.0); ABG HCO3 27.7 mmol/L (22-26)
[2022-05-02] MEDS: NS + KCL 20 MEQ/L 1,000 ML IV SCH ×4 (00:18→22:44)
[2022-05-02] MEDS: NORCO 10/325 TAB PO PRN ×2 (04:33→18:04)
[2022-05-02 04:55] LABS: BASOPHILS # (AUTO) 0.1 X10^3/uL (0.0-0.1); BASOPHILS % (AUTO) 0.5 % (0.2-1.0); EOSINOPHILS % (AUTO) 0.1 % (0.9-2.9); LYMPHOCYTES # (AUTO) 1.4 X10^3/uL (1.3-2.9); LYMPHOCYTES % (AUTO) 11.1 % (21.0-51.0); MEAN CORPUSCULAR HEMOGLOBIN 31.2 pg (27.0-34.0); MEAN CORPUSCULAR HGB CONC 34.9 g/dL (33.0-35.0); MEAN CORPUSCULAR VOLUME 89.3 fL (80.0-100.0); MONOCYTES # (AUTO) 0.8 x10^3/uL (0.3-0.8); MONOCYTES % (AUTO) 6.3 % (0.0-13.0); RED BLOOD COUNT 3.47 X10^6/uL (4.7-6.0); RED CELL DISTRIBUTION WIDTH 13.1 % (11.6-16.5); WHITE BLOOD COUNT 12.2 X10^3/uL (3.6-10.0)
[2022-05-02 05:03] LABS: ALANINE AMINOTRANSFERASE 34 Units/L (12-78); ALBUMIN 2.8 g/dL (3.4-5.0); ALKALINE PHOSPHATASE 143 Units/L (46-116); ASPARTATE AMINO TRANSFERASE 8 Units/L (15-37); BLOOD UREA NITROGEN 8 mg/dL (7-18); CALCIUM 8.2 mg/dL (8.5-10.1); CARBON DIOXIDE 28.4 mmol/L (21-32); CHLORIDE 98 mmol/L (98-107); COR CA(FOR HYPOALB) 9.2 mg/dL (8.5-10.1); COR NA(FOR HYPERGLY) 137 mmol/L (136-145); CREATININE 0.94 mg/dL (0.70-1.30); SODIUM 132 mmol/L (136-145); eGFR NON BLACK RACES > 60 (>60)
[2022-05-02 05:13] LABS: HEMOGLOBIN 10.8 g/dL (13.5-18.0)
[2022-05-02] MEDS ORDERED: POTASSIUM CHLORIDE LIQ 20 MEQ UDC PO PRN (05:43)
[2022-05-02] MEDS ORDERED: K-RIDER 10 MEQ/NS 100 ML 10 MEQ/100 ML BAG IV PRN (05:43)
[2022-05-02] MEDS ORDERED: POTASSIUM CHL 60 MEQ/NS 0.45% 500 ML IV PRN (05:43)
[2022-05-02] MEDS ORDERED: KLOR-CON PO PRN (05:43)
[2022-05-02] MEDS ORDERED: MICRO K EXTEN CAP 10 MEQ PO PRN (05:43)
[2022-05-02] MEDS ORDERED: POTASSIUM CHL 40 MEQ/NS 0.45% 500 ML IV PRN (05:43)
[2022-05-02] MEDS: MAGNESIUM SULFATE 1 GRAM/100 mL PREMIX 1 G/100 ML BAG IV PRN ×2 (06:17→08:57)
[2022-05-02] MEDS: NS 1,000 ML IV 1,000 ML IV SCH (06:18)
[2022-05-02] MEDS ORDERED: LEXAPRO ONE (08:13)
[2022-05-02] MEDS ORDERED: ZESTRIL TAB 20 MG ONE (08:13)
[2022-05-02] MEDS: LEXAPRO PO SCH (08:24)
[2022-05-02] MEDS: ZESTRIL TAB 20 MG PO SCH (08:25)
[2022-05-02] MEDS: ARIMIDEX PO SCH (08:25)
[2022-05-02] MEDS: ASPIRIN EC 81 MG PO SCH (08:26)
[2022-05-02] MEDS: ISOSORBIDE MONONITRATE ER 24-HR PO SCH (08:26)
[2022-05-02] MEDS: NORVASC TAB 5 MG PO SCH (08:27)
[2022-05-02] MEDS: PROTONIX TAB 40 MG PO SCH (08:28)
[2022-05-02] MEDS: WELLBUTRIN XL 300 MG (DAILY) PO SCH (08:28)
[2022-05-02] MEDS: PATIENT'S HOME MEDICATION (Prasugrel 10 mg tablet) PO SCH (08:48)
[2022-05-02] MEDS: MORPHINE SULFATE INJ 2 MG INJ IVP PRN ×2 (08:53→20:18)
--- NOTE | 2022-05-02 15:07 | PCM.PROG ---
Progress Note Progress Note for Day of Date of Exam: 05/02/22 Subjective Subjective: The patient is doing well this morning. He is resting and had no acute problems overnight. He does still have a small amount of serous acetone and elevated blood sugars in the [id number]. His vital signs are stable this morning physical exam is unremarkable. No nausea vomiting or diarrhea at this time Past Medical Family Social History Allergies: Allergies Penicillins Allergy (Verified 11/24/19 19:01) Review of Systems ROS: No change since H&P Vital Signs and I&O's Vital Signs: Temperature 97.6 F Pulse Rate [Left Brachial] 82 Pulse Rate 99 Respiratory Rate 20 Blood Pressure [Left Arm] 132/82 Blood Pressure [Right Arm] 127/65 Blood Pressure 109/63 O2 Sat by Pulse Oximetry 98 Intake and Output: Intake & Output 04/30/22 05/01/22 05/02/22 05/03/22 11:59 11:59 11:59 11:59 Intake Total 6530.9 / 6530.9 16.1 / 16.1 Output Total 2400 / 2400 Balance 4130.9 / 4130.9 16.1 / 16.1 Physical Exam Oriented: Normal Eyes: Normal Ear: Normal Nose: Normal Throat: Normal Respiratory: Normal Cardiovascular: Normal : Normal Auscultation: Bowel Sounds: Normal Palpation: Normal Tenderness: Normal Skin: Normal Musculoskeletal: Normal Psychiatric: Normal Mood Description: Calm Affect: Angry Speech Pattern: Clear and Appropriate Laboratory and Diagnostics Result Diagrams: 05/02/22 04:26 05/02/22 04:26 Labs: Laboratory WBC 12.2 X10^3/uL (3.6-10.0) H 05/02/22 04:26 RBC 3.47 X10^6/uL (4.7-6.0) L 05/02/22 04:26 Hgb 10.8 g/dL (13.5-18.0) L D 05/02/22 04:26 Hct 31.0 % (42.0-54.0) L 05/02/22 04:26 MCV 89.3 fL (80.0-100.0) 05/02/22 04:26 MCH 31.2 pg (27.0-34.0) 05/02/22 04:26 MCHC 34.9 g/dL (33.0-35.0) 05/02/22 04:26 RDW 13.1 % (11.6-16.5) 05/02/22 04:26 Plt Count 190 X10^3/uL (150.0-450.0) 05/02/22 04:26 Plt Count Comment Adequate (ADEQUATE) 05/01/22 10:03 MPV 11.0 fL (7.4-11.0) 05/02/22 04:26 Neut % (Auto) 82.0 % (42.0-75.0) H 05/02/22 04:26 Lymph % (Auto) 11.1 % (21.0-51.0) L 05/02/22 04:26 [place] % (Auto) 6.3 % (0.0-13.0) 05/02/22 04:26 Eos % (Auto) 0.1 % (0.9-2.9) L 05/02/22 04:26 Baso % (Auto) 0.5 % (0.2-1.0) 05/02/22 04:26 Neut # (Auto) 10.0 x10^3/uL (2.2-4.8) H 05/02/22 04:26 Lymph # (Auto) 1.4 X10^3/uL (1.3-2.9) 05/02/22 04:26 [place] # (Auto) 0.8 x10^3/uL (0.3-0.8) 05/02/22 04:26 Eos # (Auto) 0.0 x10^3/uL (0.0-0.2) 05/02/22 04:26 Baso # (Auto) 0.1 X10^3/uL (0.0-0.1) 05/02/22 04:26 Absolute Nucleated RBC 0.0 /100WBC 05/02/22 04:26 Total Counted 100 05/01/22 10:03 Neutrophils % (Manual) 95 % (39-76) H 05/01/22 10:03 Lymphocytes % (Manual) 5 % (13-43) L 05/01/22 10:03 Plt Morphology Comment Normal (NORMAL) 05/01/22 10:03 RBC Morphology Abnormal (NORMAL) 05/01/22 10:03 Stomatocytes Slight A 05/01/22 10:03 PT 12.5 SECONDS (11.8-14.3) 05/01/22 10:03 INR Target Range - 05/01/22 10:03 INR 0.95 (0.8-1.3) 05/01/22 10:03 APTT 25.0 SECONDS (22.9-36.5) 05/01/22 10:03 PTT Comment - 05/01/22 10:03 D-Dimer 0.49 ug/ml (0.0-0.57) 05/01/22 10:03 Sample Site Lr 05/02/22 00:00 ABG pH 7.460 (7.35-7.45) H 05/02/22 00:00 ABG pCO2 39.0 mmHg (35.0-45.0) 05/02/22 00:00 ABG pO2 80.0 mmHg (80.0-100.0) 05/02/22 00:00 ABG HCO3 27.7 mmol/L (22-26) H 05/02/22 00:00 ABG O2 Saturation 96.0 % (90-100) 05/02/22 00:00 ABG Base Excess 3.7 mmol/L (-2.0-2.0) H 05/02/22 00:00 Robert Test Pos 05/02/22 00:00 A-a Gradient 21.0 mmHg 05/02/22 00:00 FiO2 21.0 05/02/22 00:00 Blood Gas Comments [place] well 05/02/22 00:00 Sodium 132 mmol/L (136-145) L 05/02/22 04:26 Corrected Sodium 137 mmol/L (136-145) 05/02/22 04:26 Potassium 3.5 mmol/L (3.5-5.1) 05/02/22 04:26 Chloride 98 mmol/L (98-107) 05/02/22 04:26 Carbon Dioxide 28.4 mmol/L (21-32) 05/02/22 04:26 BUN 8 mg/dL (7-18) 05/02/22 04:26 Creatinine 0.94 mg/dL (0.70-1.30) 05/02/22 04:26 Est GFR (MDRD) Af Amer > 60 (>60) 05/02/22 04:26 Est GFR (MDRD) Non-Af > 60 (>60) 05/02/22 04:26 Glucose 308 mg/dL (65-99) H 05/02/22 04:26 POC Glucose (mg/dL) 332 mg/dL (65-99) H 05/02/22 14:08 Calcium 8.2 mg/dL (8.5-10.1) L 05/02/22 04:26 Corrected Calcium 9.2 mg/dL (8.5-10.1) 05/02/22 04:26 Magnesium 1.7 mg/dL (1.7-2.9) 05/02/22 04:26 Total Bilirubin 0.30 mg/dL (0.2-1.0) 05/02/22 04:26 AST 8 Units/L (15-37) L 05/02/22 04:26 ALT 34 Units/L (12-78) 05/02/22 04:26 Alkaline Phosphatase 143 Units/L (46-116) H 05/02/22 04:26 Total Protein 6.0 g/dL (6.4-8.2) L 05/02/22 04:26 Albumin 2.8 g/dL (3.4-5.0) L 05/02/22 04:26 Globulin 3.2 g/dL (2.5-4.5) 05/02/22 04:26 Albumin/Globulin Ratio 0.9 Ratio (1.1-2.1) L 05/02/22 04:26 Specimen Type Clean catch urine 05/01/22 10:03 Urine Color Straw (YELLOW) 05/01/22 10:03 Urine Appearance Clear (CLEAR) 05/01/22 10:03 Urine pH 6.0 (5.0 - 8.0) 05/01/22 10:03 Ur Specific [place] 1.010 (1.000-1.030) 05/01/22 10:03 Urine Protein Negative (NEGATIVE) 05/01/22 10:03 Urine Glucose (UA) 4+ (NEGATIVE) 05/01/22 10:03 Urine Ketones 2+ (NEGATIVE) 05/01/22 10:03 Urine Blood Negative (NEGATIVE) 05/01/22 10:03 Urine Nitrite Negative (NEGATIVE) 05/01/22 10:03 Urine Bilirubin Negative (NEGATIVE) 05/01/22 10:03 Urine Urobilinogen Normal (NORMAL) 05/01/22 10:03 Ur Leukocyte Esterase Negative (NEGATIVE) 05/01/22 10:03 Acetone, Semi-Quant Small (NEGATIVE) H 05/02/22 04:26 SARS-CoV-2 (PCR) Positive (NEGATIVE) A 05/01/22 10:25 Plan (1) DKA (diabetic ketoacidosis): Status: Acute Narrative Support Text: Patient is doing much better since admission. His sugars down but still remains somewhat hyperglycemic. Still has small acetone at this time. Plan: Continue IV insulin drip per protocol. Repeat serum acetone in a.m. possible discharge home tomorrow morning once his serum acetone is negative. (2) Hypertension: Status: Acute Plan: Monitor blood pressure at this time. I will resume his home blood pressure medicines after he gets to the floor. (3) Hyperkalemia: Status: Acute Narrative Support Text: Hyperkalemia has resolved. Potassium 3.5 today. Plan: IV hydration along with insulin drip which will help decrease patient's potassium. (4) Dehydration: Status: Acute Narrative Support Text: Dehydration resolved. BUN 8 today and creatinine 0.94. Plan: IV hydration with normal saline.
[2022-05-02] MEDS: MYXREDLIN 100 UNIT/100 ML BAG 100 UNIT/100 ML PLAST..BAG IV PRN (18:06)
[2022-05-02] MEDS: CRESTOR TAB 10 MG PO SCH (20:18)
[2022-05-02] MEDS: SINEquan PO SCH (20:19)
[2022-05-02] MEDS: XANAX PO PRN (20:19)
[2022-05-03 05:35] LABS: BASOPHILS % (AUTO) 0.2 % (0.2-1.0); EOSINOPHILS % (AUTO) 0.2 % (0.9-2.9); HEMATOCRIT 30.5 % (42.0-54.0); HEMOGLOBIN 10.7 g/dL (13.5-18.0); LYMPHOCYTES # (AUTO) 2.4 X10^3/uL (1.3-2.9); LYMPHOCYTES % (AUTO) 30.3 % (21.0-51.0); MEAN CORPUSCULAR HEMOGLOBIN 31.8 pg (27.0-34.0); MEAN CORPUSCULAR HGB CONC 35.2 g/dL (33.0-35.0); MEAN CORPUSCULAR VOLUME 90.4 fL (80.0-100.0); MEAN PLATELET VOLUME 10.7 fL (7.4-11.0); MONOCYTES # (AUTO) 0.6 x10^3/uL (0.3-0.8); MONOCYTES % (AUTO) 7.5 % (0.0-13.0); NEUTROPHILS # (AUTO) 4.9 x10^3/uL (2.2-4.8); NEUTROPHILS % (AUTO) 61.8 % (42.0-75.0); RED BLOOD COUNT 3.37 X10^6/uL (4.7-6.0); RED CELL DISTRIBUTION WIDTH 13.2 % (11.6-16.5); WHITE BLOOD COUNT 7.9 X10^3/uL (3.6-10.0)
[2022-05-03] MEDS: MORPHINE SULFATE INJ 2 MG INJ IVP PRN ×3 (05:37→20:27)
[2022-05-03 05:49] LABS: ALANINE AMINOTRANSFERASE 30 Units/L (12-78); ALBUMIN 2.6 g/dL (3.4-5.0); ALKALINE PHOSPHATASE 129 Units/L (46-116); ASPARTATE AMINO TRANSFERASE 10 Units/L (15-37); BLOOD UREA NITROGEN 10 mg/dL (7-18); CALCIUM 7.7 mg/dL (8.5-10.1); CHLORIDE 101 mmol/L (98-107); COR CA(FOR HYPOALB) 8.8 mg/dL (8.5-10.1); COR NA(FOR HYPERGLY) 141 mmol/L (136-145); CREATININE 0.88 mg/dL (0.70-1.30); MAGNESIUM 1.7 mg/dL (1.7-2.9); SODIUM 136 mmol/L (136-145); TOTAL PROTEIN 5.7 g/dL (6.4-8.2); eGFR NON BLACK RACES > 60 (>60)
[2022-05-03] MEDS: MAGNESIUM SULFATE 1 GRAM/100 mL PREMIX 1 G/100 ML BAG IV PRN ×2 (06:19→08:50)
[2022-05-03] MEDS: K-DUR TAB 20 MEQ PO PRN (06:24)
[2022-05-03] MEDS ORDERED: ZESTRIL TAB 20 MG ONE (08:31)
[2022-05-03] MEDS ORDERED: LEXAPRO ONE (08:31)
[2022-05-03] MEDS: NS + KCL 20 MEQ/L 1,000 ML IV SCH ×3 (08:48→23:57)
[2022-05-03] MEDS: ARIMIDEX PO SCH (08:48)
[2022-05-03] MEDS: ASPIRIN EC 81 MG PO SCH (08:48)
[2022-05-03] MEDS: LEXAPRO PO SCH (08:49)
[2022-05-03] MEDS: NORVASC TAB 5 MG PO SCH (08:49)
[2022-05-03] MEDS: ISOSORBIDE MONONITRATE ER 24-HR PO SCH (08:49)
[2022-05-03] MEDS: PATIENT'S HOME MEDICATION (Prasugrel 10 mg tablet) PO SCH (08:49)
[2022-05-03] MEDS: WELLBUTRIN XL 300 MG (DAILY) PO SCH (08:50)
[2022-05-03] MEDS: ZESTRIL TAB 20 MG PO SCH (08:50)
[2022-05-03] MEDS: PROTONIX TAB 40 MG PO SCH (08:50)
[2022-05-03] MEDS: NORCO 10/325 TAB PO PRN (08:55)
[2022-05-03] MEDS ORDERED: ACTOS PO SCH (09:00)
[2022-05-03] MEDS ORDERED: INVOKANA PO SCH (09:00)
[2022-05-03] MEDS ORDERED: HumuLIN 70/30 (NovoLIN 70/30) SC ONE (09:43)
[2022-05-03] MEDS ORDERED: GLUCOPHAGE ONE ×2 (10:07→19:58)
[2022-05-03] MEDS: GLUCOPHAGE PO SCH ×2 (10:14→20:27)
[2022-05-03] MEDS: MYXREDLIN 100 UNIT/100 ML BAG 100 UNIT/100 ML PLAST..BAG IV PRN (14:13)
[2022-05-03] MEDS: SNACK - Diabetic Appropriate PO SCH (20:26)
[2022-05-03] MEDS: CRESTOR TAB 10 MG PO SCH (20:26)
[2022-05-03] MEDS: SINEquan PO SCH (20:27)
[2022-05-03] MEDS: XANAX PO PRN (20:28)
[2022-05-04 04:58] LABS: BASOPHILS % (AUTO) 0.2 % (0.2-1.0); EOSINOPHILS % (AUTO) 0.6 % (0.9-2.9); HEMOGLOBIN 11.4 g/dL (13.5-18.0); LYMPHOCYTES # (AUTO) 2.3 X10^3/uL (1.3-2.9); LYMPHOCYTES % (AUTO) 31.5 % (21.0-51.0); MEAN CORPUSCULAR HEMOGLOBIN 31.6 pg (27.0-34.0); MEAN CORPUSCULAR HGB CONC 34.6 g/dL (33.0-35.0); MEAN CORPUSCULAR VOLUME 91.3 fL (80.0-100.0); MEAN PLATELET VOLUME 10.3 fL (7.4-11.0); MONOCYTES # (AUTO) 0.7 x10^3/uL (0.3-0.8); MONOCYTES % (AUTO) 9.8 % (0.0-13.0); NEUTROPHILS # (AUTO) 4.3 x10^3/uL (2.2-4.8); NEUTROPHILS % (AUTO) 57.9 % (42.0-75.0); RED BLOOD COUNT 3.62 X10^6/uL (4.7-6.0); RED CELL DISTRIBUTION WIDTH 13.6 % (11.6-16.5); WHITE BLOOD COUNT 7.5 X10^3/uL (3.6-10.0)
[2022-05-04 05:04] LABS: ALANINE AMINOTRANSFERASE 39 Units/L (12-78); ALBUMIN 2.9 g/dL (3.4-5.0); ALKALINE PHOSPHATASE 129 Units/L (46-116); ASPARTATE AMINO TRANSFERASE 29 Units/L (15-37); BLOOD UREA NITROGEN 9 mg/dL (7-18); CALCIUM 8.2 mg/dL (8.5-10.1); CARBON DIOXIDE 28.2 mmol/L (21-32); CHLORIDE 102 mmol/L (98-107); COR CA(FOR HYPOALB) 9.1 mg/dL (8.5-10.1); COR NA(FOR HYPERGLY) 141 mmol/L (136-145); CREATININE 0.85 mg/dL (0.70-1.30); MAGNESIUM 1.8 mg/dL (1.7-2.9); SODIUM 139 mmol/L (136-145); eGFR NON BLACK RACES > 60 (>60)
[2022-05-04] MEDS: K-DUR TAB 20 MEQ PO PRN (05:41)
[2022-05-04] MEDS: MAGNESIUM SULFATE 1 GRAM/100 mL PREMIX 1 G/100 ML BAG IV PRN (05:42)
[2022-05-04] MEDS ORDERED: GLUCOPHAGE ONE ×2 (07:56→20:07)
[2022-05-04] MEDS ORDERED: LEXAPRO ONE (07:56)
[2022-05-04] MEDS ORDERED: ZESTRIL TAB 20 MG ONE (07:56)
[2022-05-04] MEDS ORDERED: IVERMECTIN PO ONE (07:57)
[2022-05-04] MEDS ORDERED: HumuLIN 70/30 (NovoLIN 70/30) SC ONE (07:58)
[2022-05-04] MEDS: NS + KCL 20 MEQ/L 1,000 ML IV SCH ×4 (08:34→23:49)
[2022-05-04] MEDS: ASPIRIN EC 81 MG PO SCH (08:38)
[2022-05-04] MEDS: ARIMIDEX PO SCH (08:39)
[2022-05-04] MEDS: GLUCOPHAGE PO SCH ×2 (08:41→20:17)
[2022-05-04] MEDS: ISOSORBIDE MONONITRATE ER 24-HR PO SCH (08:41)
[2022-05-04] MEDS: NORVASC TAB 5 MG PO SCH (08:42)
[2022-05-04] MEDS: LEXAPRO PO SCH (08:42)
[2022-05-04] MEDS: PATIENT'S HOME MEDICATION (Prasugrel 10 mg tablet) PO SCH (08:43)
[2022-05-04] MEDS: PROTONIX TAB 40 MG PO SCH (08:43)
[2022-05-04] MEDS: ZESTRIL TAB 20 MG PO SCH (08:44)
[2022-05-04] MEDS: ACTOS PO SCH (08:52)
[2022-05-04] MEDS: INVOKANA PO SCH (08:52)
[2022-05-04] MEDS: WELLBUTRIN XL 300 MG (DAILY) PO SCH (08:57)
[2022-05-04] MEDS: MORPHINE SULFATE INJ 2 MG INJ IVP PRN ×3 (09:36→22:08)
[2022-05-04] MEDS ORDERED: NovoLIN R (or HumuLIN R) SUBCUT PRN (10:45)
[2022-05-04] MEDS: NORCO 10/325 TAB PO PRN ×2 (13:45→20:29)
[2022-05-04] MEDS ORDERED: SNACK - Diabetic Appropriate PO SCH (20:00)
[2022-05-04] MEDS: SNACK - Diabetic Appropriate PO SCH (20:16)
[2022-05-04] MEDS: CRESTOR TAB 10 MG PO SCH (20:16)
[2022-05-04] MEDS: SINEquan PO SCH (20:16)
[2022-05-04] MEDS: XANAX PO PRN (20:31)
[2022-05-04] MEDS ORDERED: MILK OF MAGNESIA PO SCH (21:00)
[2022-05-04] MEDS ORDERED: COLACE CAP 100 MG PO SCH (21:00)
[2022-05-05 04:26] LABS: BASOPHILS % (AUTO) 0.7 % (0.2-1.0); EOSINOPHILS % (AUTO) 0.4 % (0.9-2.9); HEMATOCRIT 34.2 % (42.0-54.0); HEMOGLOBIN 11.7 g/dL (13.5-18.0); LYMPHOCYTES % (AUTO) 31.4 % (21.0-51.0); MEAN CORPUSCULAR HEMOGLOBIN 31.2 pg (27.0-34.0); MEAN CORPUSCULAR HGB CONC 34.2 g/dL (33.0-35.0); MEAN CORPUSCULAR VOLUME 91.4 fL (80.0-100.0); MEAN PLATELET VOLUME 10.2 fL (7.4-11.0); MONOCYTES # (AUTO) 0.8 x10^3/uL (0.3-0.8); NEUTROPHILS # (AUTO) 3.5 x10^3/uL (2.2-4.8); NEUTROPHILS % (AUTO) 55.5 % (42.0-75.0); RED BLOOD COUNT 3.75 X10^6/uL (4.7-6.0); RED CELL DISTRIBUTION WIDTH 14.3 % (11.6-16.5); WHITE BLOOD COUNT 6.3 X10^3/uL (3.6-10.0)
[2022-05-05 04:34] LABS: ALANINE AMINOTRANSFERASE 49 Units/L (12-78); ALKALINE PHOSPHATASE 129 Units/L (46-116); ASPARTATE AMINO TRANSFERASE 39 Units/L (15-37); BLOOD UREA NITROGEN 10 mg/dL (7-18); CALCIUM 8.3 mg/dL (8.5-10.1); CARBON DIOXIDE 28.5 mmol/L (21-32); CHLORIDE 100 mmol/L (98-107); COR CA(FOR HYPOALB) 9.1 mg/dL (8.5-10.1); COR NA(FOR HYPERGLY) 141 mmol/L (136-145); CREATININE 0.97 mg/dL (0.70-1.30); SODIUM 136 mmol/L (136-145); TOTAL PROTEIN 6.2 g/dL (6.4-8.2); eGFR NON BLACK RACES > 60 (>60)
[2022-05-05] MEDS ORDERED: LEXAPRO ONE (08:17)
[2022-05-05] MEDS ORDERED: ZESTRIL TAB 20 MG ONE (08:17)
[2022-05-05] MEDS ORDERED: GLUCOPHAGE ONE (08:33)
[2022-05-05] MEDS: NS + KCL 20 MEQ/L 1,000 ML IV SCH (08:37)
[2022-05-05] MEDS: ACTOS PO SCH (08:38)
[2022-05-05] MEDS: ARIMIDEX PO SCH (08:39)
[2022-05-05] MEDS: ASPIRIN EC 81 MG PO SCH (08:39)
[2022-05-05] MEDS: PROTONIX TAB 40 MG PO SCH (08:39)
[2022-05-05] MEDS: GLUCOPHAGE PO SCH (08:40)
[2022-05-05] MEDS: INVOKANA PO SCH (08:40)
[2022-05-05] MEDS: LEXAPRO PO SCH (08:41)
[2022-05-05] MEDS: ISOSORBIDE MONONITRATE ER 24-HR PO SCH (08:41)
[2022-05-05] MEDS: PATIENT'S HOME MEDICATION (Prasugrel 10 mg tablet) PO SCH (08:42)
[2022-05-05] MEDS: NORVASC TAB 5 MG PO SCH (08:42)
[2022-05-05] MEDS: WELLBUTRIN XL 300 MG (DAILY) PO SCH (08:42)
[2022-05-05] MEDS: ZESTRIL TAB 20 MG PO SCH (08:43)
[2022-05-05] MEDS: MORPHINE SULFATE INJ 2 MG INJ IVP PRN (09:15)
[2022-05-05 09:41] VITALS: BP 138/83
== END 2022-05-05 11:00 | disposition home or self-care (01) | DRG 637 ==
LOC: ER 09:30 → ICU 11:12
PROVIDERS: ADMIT Family Medicine; ATTEND Obstetrics & Gynecology Obstetrics
DX: E11.10 Type 2 diabetes mellitus with ketoacidosis without coma; E87.5 Hyperkalemia; I25.10 Atherosclerotic heart disease of native coronary artery without angina pectoris; Z86.16 Personal history of COVID-19; R94.31 Abnormal electrocardiogram [ECG] [EKG]; E86.0 Dehydration; R46.89 Other symptoms and signs involving appearance and behavior; I10 Essential (primary) hypertension; U07.1 COVID-19

== ENCOUNTER 2022-06-09 00:23 | Observation (INO) ==
--- NOTE | 2022-06-09 01:05 | DR.DIZZY ---
HPI Time seen Time Seen by Provider: 06/09/22 00:48 PCP Primary Care Physician: Maryam HPI Comment HPI Comment: A 46 y/o male who presents via EMS EMS with dizziness and hypotension. BP vaues were 68/49 per EMS and they started him on NS IV bolus. He has a hx. of HTN for which he is prescribed Zestril and Norvasc. He states that he did not take too much of his medications. He awake from sleep and started feeling light headed. He denies chest apin or palpitations. He had a non- radiating chest pain arpan yesterday evening he states. Complaint Chief Complaint:: "Hypotension, dizziness, mild SOB, onset 30 -45 minutes ago" COVID-19 Coronavirus risk:travel/contact w/high risk person: No Has patient experienced Coronavirus symptoms: No Nurses Notes Reviewed Nurses Notes Review: Yes Source History Provided: EMS Mode of Arrival Mode of Arrival: EMS Timing Onset of Chief Complaint: 06/09/22 Context Onset: At rest Does pt take pot. toxic medication?: No History of: DM Stroke Symptoms: None Severity Severity: Normal activity level Modifying factors Worsens: Nothing PMH PMH Past Medical History: Yes Past Medical History: Coronary Artery Disease, Diabetes, Gout, Hypertension and [place] Past Surgical History: Yes Surgical History: Angioplasty/Stents, Ortho Surgery and Other Family History History of Family Medical Conditions: Yes Family Medical History: Diabetes Mellitus, Cancer, [place] and Hypertension Social History Does patient currently use any type of tobacco product: No Have you used tobacco products in the last 12 months: No Type of Tobacco Use: None Alcohol Use: Occasionally Do you use any recreational Drugs:: No Lives With: Spouse Lives Where: Home Travel Risk Coronavirus risk:travel/contact w/high risk person: No Has patient experienced Coronavirus symptoms: No Infectious screening In the last 2 months have you had wt loss of >10#?: NO Have you had fever, night sweats or hemotysis?: No Have you traveled outside the country in the last 6 months?: No Isolation: Standard ROS Review of Systems Constitutional: No Symptoms Reported Eyes: No Symptoms Reported ENTM: No Symptoms Reported Respiratoy: No Symptoms Reported Cardiovascular: No Symptoms Reported Gastrointestinal/Abdominal: No Symptoms Reported Genitourinary: No Symptoms Reported Neurological: Dizziness Musculoskeletal: No Symptoms Reported Integumentary: No Symptoms Reported Hematologic/Lymphatic: No Symptoms Reported Endocrine: No Symptoms Reported Psychiatric: No Symptoms Reported All Other Systems: Reviewed and Negative PE Vital Signs Vitals: Temperature 97.9 F Pulse Rate 80 Respiratory Rate 21 Blood Pressure [Left Arm] 131/69 Blood Pressure [Right Arm] 130/75 Blood Pressure 135/82 O2 Sat by Pulse Oximetry 99 General Limitations: No Limitations General Appearance: Alert and In No Apparent Distress Head Head Exam: Normal Inspection, Atraumatic and Normocephalic Eyes Eye exam: Normal Appearance and EOMI ENT ENT Exam: Normal Exam, Normal Oropharynx and Normal External Ear Exam Neck Neck Exam: Normal Inspection, Full ROM and Trachea Midline Chest Chest Inspection: Normal Inspection and Symmetric Chest Wall Rise Respiratory Respiratory Exam: Normal Lung Sounds Bilat Cardiovascular Cardiovascular Exam: Regular Rate, Normal Rhythm, Normal Heart Sounds, +S1 and +S2 Abdominal Exam Abdominal Exam: Normal Inspection, Normal Bowel Sounds and Soft Rectal Rectal Exam: Deferred Extremeties Extremities Exam: Normal Inspection and Full ROM Back Back Exam: Normal Inspection and Full ROM Neurologic Neurological Exam: Alert and Oriented X3 Psychiatric Psychiatric Exam: Normal Affect and Normal Mood Skin Skin Exam: Dry, Intact and Normal Color COURSE Reevaluation 1st: Improved Education/Counseling Education/Counseling: Patient, Education and Counseling Educated On: Treatment, Diagnosis, Prognosis and Needs for Follow Up ROR Labs Reviewed Result Diagrams: 06/09/22 01:00 06/09/22 01:00 Laboratory: WBC 5.8 X10^3/uL (3.6-10.0) 06/09/22 01:00 RBC 3.69 X10^6/uL (4.7-6.0) L 06/09/22 01:00 Hgb 11.8 g/dL (13.5-18.0) L 06/09/22 01:00 Hct 34.9 % (42.0-54.0) L 06/09/22 01:00 MCV 94.7 fL (80.0-100.0) 06/09/22 01:00 MCH 31.9 pg (27.0-34.0) 06/09/22 01:00 MCHC 33.7 g/dL (33.0-35.0) 06/09/22 01:00 RDW 13.8 % (11.6-16.5) 06/09/22 01:00 Plt Count 229 X10^3/uL (150.0-450.0) 06/09/22 01:00 MPV 9.4 fL (7.4-11.0) 06/09/22 01:00 Neut % (Auto) 49.6 % (42.0-75.0) 06/09/22 01:00 Lymph % (Auto) 38.4 % (21.0-51.0) 06/09/22 01:00 [place] % (Auto) 10.3 % (0.0-13.0) 06/09/22 01:00 Eos % (Auto) 1.2 % (0.9-2.9) 06/09/22 01:00 Baso % (Auto) 0.5 % (0.2-1.0) 06/09/22 01:00 Neut # (Auto) 2.9 x10^3/uL (2.2-4.8) 06/09/22 01:00 Lymph # (Auto) 2.2 X10^3/uL (1.3-2.9) 06/09/22 01:00 [place] # (Auto) 0.6 x10^3/uL (0.3-0.8) 06/09/22 01:00 Eos # (Auto) 0.1 x10^3/uL (0.0-0.2) 06/09/22 01:00 Baso # (Auto) 0.0 X10^3/uL (0.0-0.1) 06/09/22 01:00 Absolute Nucleated RBC 0.1 /100WBC 06/09/22 01:00 Sodium 138 mmol/L (136-145) 06/09/22 01:00 Corrected Sodium 138 mmol/L (136-145) 06/09/22 01:00 Potassium 3.8 mmol/L (3.5-5.1) 06/09/22 01:00 Chloride 102 mmol/L (98-107) 06/09/22 01:00 Carbon Dioxide 26.2 mmol/L (21-32) 06/09/22 01:00 BUN 9 mg/dL (7-18) 06/09/22 01:00 Creatinine 1.17 mg/dL (0.70-1.30) 06/09/22 01:00 Est GFR (MDRD) Af Amer > 60 (>60) 08/11/22 01:00 Est GFR (MDRD) Non-Af > 60 (>60) 06/09/22 01:00 Glucose 117 mg/dL (65-99) H 06/09/22 01:00 Calcium 8.0 mg/dL (8.5-10.1) L 06/09/22 01:00 Corrected Calcium 8.8 mg/dL (8.5-10.1) 06/09/22 01:00 Total Bilirubin 0.30 mg/dL (0.2-1.0) 06/09/22 01:00 AST 42 Units/L (15-37) H 06/09/22 01:00 ALT 44 Units/L (12-78) 06/09/22 01:00 Alkaline Phosphatase 124 Units/L (46-116) H 06/09/22 01:00 Creatine Kinase 128 Units/L (39-308) 06/09/22 01:00 Troponin I High Sens 27.2 ng/L (4.0-60.0) 06/09/22 01:00 Total Protein 6.5 g/dL (6.4-8.2) 06/09/22 01:00 Albumin 3.0 g/dL (3.4-5.0) L 06/09/22 01:00 Globulin 3.5 g/dL (2.5-4.5) 06/09/22 01:00 Albumin/Globulin Ratio 0.9 Ratio (1.1-2.1) L 06/09/22 01:00 Opioid Opioid Risk Tool Age ([place] box if 16-45): No History of Preadolescent Sexual Abuse: No Total: 0 Total Score Risk Category: Low Risk Copyright: Ronald DELCID predicting aberrant behaviors Discharge Plan Diagnosis Discharge Problem: Acute hypotension, CAD (coronary artery disease), Diabetes mellitus type 2 Discharge Plan Patient Disposition: ADMITTED INPATIENT Condition: Stable Orders to Discharge Patient Discharge Orders: Transfer (Routine); Ordered 06/09/22 Ordered By: KYARA WOODS
[2022-06-09 01:10] LABS: BASOPHILS % (AUTO) 0.5 % (0.2-1.0); EOSINOPHILS # (AUTO) 0.1 x10^3/uL (0.0-0.2); EOSINOPHILS % (AUTO) 1.2 % (0.9-2.9); HEMATOCRIT 34.9 % (42.0-54.0); HEMOGLOBIN 11.8 g/dL (13.5-18.0); LYMPHOCYTES # (AUTO) 2.2 X10^3/uL (1.3-2.9); LYMPHOCYTES % (AUTO) 38.4 % (21.0-51.0); MEAN CORPUSCULAR HEMOGLOBIN 31.9 pg (27.0-34.0); MEAN CORPUSCULAR HGB CONC 33.7 g/dL (33.0-35.0); MEAN CORPUSCULAR VOLUME 94.7 fL (80.0-100.0); MEAN PLATELET VOLUME 9.4 fL (7.4-11.0); MONOCYTES # (AUTO) 0.6 x10^3/uL (0.3-0.8); MONOCYTES % (AUTO) 10.3 % (0.0-13.0); NEUTROPHILS # (AUTO) 2.9 x10^3/uL (2.2-4.8); NEUTROPHILS % (AUTO) 49.6 % (42.0-75.0); RED BLOOD COUNT 3.69 X10^6/uL (4.7-6.0); RED CELL DISTRIBUTION WIDTH 13.8 % (11.6-16.5); WHITE BLOOD COUNT 5.8 X10^3/uL (3.6-10.0)
[2022-06-09 01:25] LABS: ALANINE AMINOTRANSFERASE 44 Units/L (12-78); ALKALINE PHOSPHATASE 124 Units/L (46-116); ASPARTATE AMINO TRANSFERASE 42 Units/L (15-37); BLOOD UREA NITROGEN 9 mg/dL (7-18); CARBON DIOXIDE 26.2 mmol/L (21-32); CHLORIDE 102 mmol/L (98-107); COR CA(FOR HYPOALB) 8.8 mg/dL (8.5-10.1); COR NA(FOR HYPERGLY) 138 mmol/L (136-145); CREATINE KINASE 128 Units/L (39-308); CREATININE 1.17 mg/dL (0.70-1.30); SODIUM 138 mmol/L (136-145); TOTAL PROTEIN 6.5 g/dL (6.4-8.2); eGFR NON BLACK RACES > 60 (>60)
[2022-06-09] MEDS ORDERED: DOPAMINE IV PREMIX 400 MG/250 ML 400 MG/250 ML BAG IV PRN (01:37)
[2022-06-09] MEDS ORDERED: NS 1,000 ML IV 1,000 ML ONE (01:40)
--- NOTE | 2022-06-09 01:40 | RAD ---
HISTORY"Hypotension, dizziness, mild SOB, onset 30 -45 minutes ago"STUDYCHEST, 1 VIEWCOMPARISONJuly 2021.TECHNIQUEA single frontal view of the chest was obtained.FINDINGSThere are multiple EKG leads and wires seen overlying the patient. There is mild cardiomegaly. There is increased interstitial markings noted throughout both lungs. There is a focal hazy patchy density to the medial aspect of the right upper lobe. There is no effusion. There is no pneumothorax. The osseous structures are intact.IMPRESSIONA focal patchy right upper lobe alveolar infiltrate with diffuse increased interstitial markings also seen throughout both lungs and a superimposed interstitial infiltrate can't be fully excluded.Electronically signed by: Cleopatra Bennett (Jun 09, 2022 01:38:45)
[2022-06-09] MEDS: NS 1,000 ML IV 1,000 ML IV SCH ×2 (01:43→10:50)
[2022-06-09] MEDS ORDERED: NovoLIN R (or HumuLIN R) SUBCUT PRN (02:18)
[2022-06-09 03:04] VITALS: BMI 48.7
[2022-06-09 08:44] VITALS: BP 111/59
== END 2022-06-09 10:50 | disposition home or self-care (01) ==
LOC: ER 00:23 → MED/SURG 00:23
PROVIDERS: ADMIT Family Medicine; ATTEND Obstetrics & Gynecology Obstetrics
DX: F41.8 Other specified anxiety disorders; I25.10 Atherosclerotic heart disease of native coronary artery without angina pectoris; R42 Dizziness and giddiness; R06.02 Shortness of breath; R94.31 Abnormal electrocardiogram [ECG] [EKG]; Z86.16 Personal history of COVID-19; I10 Essential (primary) hypertension; Z20.822 Contact with and (suspected) exposure to COVID-19; E11.65 Type 2 diabetes mellitus with hyperglycemia; I95.89 Other hypotension

== ENCOUNTER 2023-12-15 13:00 | Observation (INO) ==
[2023-12-15] MEDS: NOZIN NASAL SANITIZER TP ONE (10:52)
[2023-12-15] MEDS: NS 1,000 ML IV 1,000 ML ONE ×2 (10:55→13:53)
[2023-12-15] MEDS: BYFAVO INJ IVP ONE (11:34)
[2023-12-15] MEDS: NAROPIN 0.75% EPI ONE (11:35)
[2023-12-15 11:43] VITALS: BMI 46.7
[2023-12-15] MEDS: ANCEF VIAL 1 GRAM ONE (12:42)
[2023-12-15] MEDS: NS 100 ML IV 100 ML ONE (12:42)
[2023-12-15] MEDS: BRIDION ONE (12:45)
[2023-12-15] MEDS: FENTANYL VIAL INJ 100 mcg ONE ×2 (12:45→13:12)
[2023-12-15] MEDS: PEPCID 20 MG VIAL ONE (12:45)
[2023-12-15] MEDS: ZEMURON 100 MG VIAL ONE (12:45)
[2023-12-15] MEDS: OFIRMEV IV 1000 MG VIAL 1,000 MG/100 ML VIAL IV ONE (12:45)
[2023-12-15] MEDS: TORADOL 30 MG VIAL ONE (12:45)
[2023-12-15] MEDS: ZOFRAN INJ 4 MG VIAL ONE (12:45)
[2023-12-15] MEDS: DIPRIVAN VIAL 20 ML ONE (12:45)
[2023-12-15] MEDS: REGLAN INJ 10 MG VIAL ONE (12:45)
[~2023-12-15 13:00] MED LIST: ULTANE GAS IN ONE
[2023-12-15] MEDS: MARCAINE 0.25% INJ ONE (13:12)
[2023-12-15] MEDS: FENTANYL VIAL INJ 250 mcg ONE (13:16)
[2023-12-15] MEDS: NEO-SYNEPHRINE INJ ONE (13:20)
[2023-12-15] MEDS ORDERED: BARHEMSYS INJ IVP PRN (13:21)
[2023-12-15] MEDS ORDERED: ZOFRAN INJ 4 MG VIAL IVP PRN ×2 (13:21→15:41)
[2023-12-15] MEDS ORDERED: BENADRYL INJ 50 MG VIAL IVP PRN (13:21)
[2023-12-15] MEDS ORDERED: REGLAN INJ 10 MG VIAL IVP PRN (13:21)
[2023-12-15] MEDS ORDERED: NS IRRIGATION* 500 ML IR ONE (14:39)
[2023-12-15] MEDS: ZYNRELEF 200-6 MG/7 ML VIAL ER SOLN IL ONE (14:53)
[2023-12-15] MEDS: BREVIBLOC ONE (14:53)
[2023-12-15] MEDS: DILAUDID INJ ONE (15:16)
[2023-12-15] MEDS: DILAUDID INJ IVP PRN ×2 (15:32→18:05)
[2023-12-15] MEDS ORDERED: TYLENOL 325 MG TAB PO PRN (15:41)
[2023-12-15] MEDS: BENADRYL INJ 50 MG VIAL IV ONE (16:40)
[2023-12-15] MEDS: BENADRYL INJ 50 MG VIAL IVP PRN (19:57)
[2023-12-15] MEDS: COLACE CAP 100 MG PO SCH (20:46)
[2023-12-15] MEDS: NORCO 10/325 TAB PO PRN (20:57)
[2023-12-15] MEDS: NS 1,000 ML IV 1,000 ML IV SCH (21:14)
[2023-12-15] MEDS: NOZIN NASAL SANITIZER TP SCH (21:23)
[2023-12-15 21:49] VITALS: O2SAT 100
[2023-12-15] MEDS: ANCEF VIAL 1 GRAM IVP SCH (22:09)
[2023-12-15] MEDS: MORPHINE SULFATE INJ 2 MG INJ IVP PRN (22:23)
[2023-12-16 06:27] LABS: BASOPHILS # (AUTO) 0.1 X10^3/uL (0.0-0.1); BASOPHILS % (AUTO) 0.6 % (0.2-1.0); EOSINOPHILS # (AUTO) 0.2 x10^3/uL (0.0-0.2); EOSINOPHILS % (AUTO) 1.9 % (0.9-2.9); HEMATOCRIT 24.3 % (42.0-54.0); HEMOGLOBIN 7.7 g/dL (13.5-18.0); LYMPHOCYTES # (AUTO) 2.2 X10^3/uL (1.3-2.9); LYMPHOCYTES % (AUTO) 21.5 % (21.0-51.0); MEAN CORPUSCULAR HGB CONC 31.7 g/dL (33.0-35.0); MEAN PLATELET VOLUME 9.6 fL (7.4-11.0); MONOCYTES # (AUTO) 1.3 x10^3/uL (0.3-0.8); MONOCYTES % (AUTO) 12.8 % (0.0-13.0); NEUTROPHILS # (AUTO) 6.6 x10^3/uL (2.2-4.8); NEUTROPHILS % (AUTO) 63.2 % (42.0-75.0); PLATELET COUNT 254 X10^3/uL (150.0-450.0); RED BLOOD COUNT 2.96 X10^6/uL (4.7-6.0); RED CELL DISTRIBUTION WIDTH 15.6 % (11.6-16.5); WHITE BLOOD COUNT 10.4 X10^3/uL (3.6-10.0)
[2023-12-16 06:44] LABS: BLOOD UREA NITROGEN 10 mg/dL (7-18); CALCIUM 7.5 mg/dL (8.5-10.1); CARBON DIOXIDE 24.9 mmol/L (21-32); CHLORIDE 101 mmol/L (98-107); CREATININE 1.06 mg/dL (0.70-1.30); GLUCOSE 97 mg/dL (65-99); POTASSIUM 3.6 mmol/L (3.5-5.1); SODIUM 136 mmol/L (136-145); eGFR NON BLACK RACES > 60 (>60)
[2023-12-16] MEDS ORDERED: CONSULT PHARMACY - POTASSIUM & MAGNESIUM XX SCH (08:00)
--- NOTE | 2023-12-16 08:51 | NOTE.SOAP ---
Soap Note Note for Day of Date of Exam: 12/16/23 Subjective Data Subjective Data: 48M s/p total ankle replacement to the LLE POD1, doing okay this morning. He was experiencing general itching everywhere last night which he states he gets from anesthesia. The benadryl helped and said thats what he has experienced this before. Pain is very severe and he cant get comfortable. Denies any calf pain or SOB. No constitutional symptoms other than the itchiness. He has had an appetite. Objective Data Objective Data: Dressings are c/d/i without strikethrough. Able to move toes. Neurovascular status intact. Assessment Assessment: 48 y/o Male with a history of Osteoarthritis of the ankle joint who underwent a total ankle replacement to the left ankle (DOS: 12/15/2023) Plan Plan: Patient seen bedside this am. Doing okay, other than the pain he is feeling good. He is ready to go home. I advised he continue elevating his leg and icing behind his knee 20 min on/ 10 min off. He is to be NWB to the LLE with crutches (has and knows how to use). Patient is to keep dressings c/d/i. Patient is to take pain medication and blood thinner as directed when discharged. Scripts in the chart. Patient is to follow up with Dr. Blount at his appointment time on the post op instructions but is advised to call the podiatry office sooner if any problems arise.
[2023-12-16] MEDS: K-DUR TAB 20 MEQ PO SCH (09:54)
[2023-12-16] MEDS: LOVENOX INJ 40 MG SYR SC SCH (09:55)
[2023-12-16] MEDS: MAG-OX TAB PO SCH (09:55)
[2023-12-16 10:41] VITALS: BP 131/69; PULSE 110; RESP 20; TEMP 97.5
== END 2023-12-16 12:00 | disposition home or self-care (01) ==
LOC: OBS → MED/SURG 16:06
PROVIDERS: ADMIT Obstetrics & Gynecology Obstetrics; ATTEND Obstetrics & Gynecology Obstetrics
DX: I10 Essential (primary) hypertension; M12.572 Traumatic arthropathy, left ankle and foot; E83.42 Hypomagnesemia

== ENCOUNTER 2024-01-23 21:02 | Inpatient (IN) ==
--- NOTE | 2024-01-23 22:10 | DR.EXTPAIN ---
HPI Time seen Time Seen by Provider: 01/23/24 22:08 PCP Primary Care Physician: AMBER HPI Comment HPI Comment: He's had worsening pain, swelling and redness to lt ankle and foot over the past several days as below; he's noticed discomfort in the lt groin and feels a "knot" there which is tender; had surgery on the lt foot about six weeks ago and had been doing fine until now; he was not in PT and denies an acute injury of any type; no fever, chills, discharge. Complaint/Symptoms Chief Complaint:: PT TO ED S/P C/O LEFT ANKLE REPLACEMENT SURGERY(12/15) PRESENTING WITH PAIN, SWELLING, REDNESS, WARM TO TOUCH, AND NUMBNESS TO TOUCH FROM KNEE DOWN. PT C/O PAIN FROM BOTTOM OF FOOT TO LEFT GROIN. STATES SWELLING STARTED 2 DAYS AGO. COVID-19 Coronavirus risk:travel/contact w/high risk person: No Has patient experienced Coronavirus symptoms: No Source History Provided: Patient Mode of arrival Mode of Arrival: Wheelchair Timing Onset of Chief Complaint: 01/21/24 PMH PMH Past Medical History: Yes Past Medical History: Anemia, Arthritis, Coronary Artery Disease, Depression, Diabetes, Gout, Hypertension, NM and Sleep Apnea Past Medical History Comment: DKA, HLD, CAD Past Surgical History: Yes Surgical History: Angioplasty/Stents and Ortho Surgery Past Surgical History Comment: HERNIA REPAIR Family History History of Family Medical Conditions: Yes Family Medical History: Diabetes Mellitus, Cancer, NM and Hypertension Social History Alcohol Use: None Do you use any recreational Drugs:: No Travel Risk Coronavirus risk:travel/contact w/high risk person: No Has patient experienced Coronavirus symptoms: No Infectious screening Have you traveled outside the country in the last 6 months?: No Isolation: Standard ROS Review of Systems Constitutional: No Symptoms Reported Eyes: No Symptoms Reported ENTM: No Symptoms Reported Respiratoy: No Symptoms Reported Cardiovascular: No Symptoms Reported Gastrointestinal/Abdominal: No Symptoms Reported Genitourinary: No Symptoms Reported Neurological: No Symptoms Reported Musculoskeletal: See HPI Integumentary: No Symptoms Reported Hematologic/Lymphatic: No Symptoms Reported Endocrine: No Symptoms Reported Psychiatric: No Symptoms Reported PE Vital Signs Vitals: Vital Signs Temperature 99.6 F Pulse Rate [Left] 125 Pulse Rate 124 Respiratory Rate 20 Respiratory Rate 20 Respiratory Rate 20 Respiratory Rate 20 Blood Pressure [Left Arm] 108/60 Blood Pressure 132/66 O2 Sat by Pulse Oximetry 98 O2 Sat by Pulse Oximetry 100 General Limitations: No Limitations General Appearance: Alert and In No Apparent Distress Head Head Exam: Normal Inspection Eyes Eye exam: Normal Appearance ENT ENT Exam: Normal Exam Neck Neck Exam: Normal Inspection Chest Chest Inspection: Normal Inspection Respiratory Respiratory Exam: Normal Lung Sounds Bilat Cardiovascular Cardiovascular Exam: Regular Rate and Normal Rhythm Abdominal Exam Abdominal Exam: Normal Inspection, Normal Bowel Sounds and Soft Extremities Extremities Exam: Normal Inspection Lower Extremities Foot/Toe Exam: Tenderness, Swelling and Erythema (with mild streaking lower third of leg) Back Back Exam: Normal Inspection Neurological Neurological Exam: Alert, Oriented X3 and CN II-XII Intact Psychiatric Psychiatric Exam: Other (obviously uncomfortable) Skin Skin Exam: Dry and Intact COURSE Consultation Call Returned: 00:22 (Dr Marquez accepts admission.) Critical Care Notes Total Time (mins): 30 Critical Diagnosis: sepsis, lt foot cellulitis Critical Interventions: labs, ct lle, abx d/w family and Dr Marquez re: admission ROR Labs Reviewed Laboratory Results Reviewed?: Yes 01/23/24 22:30 01/23/24 22:30 Laboratory: WBC 17.7 X10^3/uL (3.6-10.0) H 01/23/24 22:30 RBC 3.40 X10^6/uL (4.7-6.0) L 01/23/24 22:30 Hgb 8.3 g/dL (13.5-18.0) L 01/23/24 22:30 Hct 26.7 % (42.0-54.0) L 01/23/24 22: MCV 78.6 fL (80.0-100.0) L 01/23/24 22:30 MCH 24.4 pg (27.0-34.0) L 01/23/24 22:30 MCHC 31.1 g/dL (33.0-35.0) L 01/23/24 22:30 RDW 17.8 % (11.6-16.5) H 01/23/24 22:30 Plt Count 358 X10^3/uL (150.0-450.0) 01/23/24 22: MPV 8.2 fL (7.4-11.0) 01/23/24 22:30 Neut % (Auto) 80.4 % (42.0-75.0) H 01/23/24 22:30 Lymph % (Auto) 8.3 % (21.0-51.0) L 01/23/24 22:30 [place] % (Auto) 10.3 % (0.0-13.0) 01/23/24 22:30 Eos % (Auto) 0.5 % (0.9-2.9) L 01/23/24 22:30 Baso % (Auto) 0.5 % (0.2-1.0) 01/23/24 22:30 Neut # (Auto) 14.2 x10^3/uL (2.2-4.8) H 01/23/24 22:30 Lymph # (Auto) 1.5 X10^3/uL (1.3-2.9) 01/23/24 22:30 [place] # (Auto) 1.8 x10^3/uL (0.3-0.8) H 01/23/24 22:30 Eos # (Auto) 0.1 x10^3/uL (0.0-0.2) 01/23/24 22:30 Baso # (Auto) 0.1 X10^3/uL (0.0-0.1) 01/23/24 22:30 Absolute Nucleated RBC 0.0 /100WBC 01/23/24 22:30 Sodium 137 mmol/L (136-145) 01/23/24 22:30 Corrected Sodium 137 mmol/L (136-145) 01/23/24 22:30 Potassium 3.9 mmol/L (3.5-5.1) 01/23/24 22: Chloride 100 mmol/L (98-107) 01/23/24 22: Carbon Dioxide 29.3 mmol/L (21-32) 01/23/24 22:30 BUN 13 mg/dL (7-18) 01/23/24 22:30 Creatinine 1.13 mg/dL (0.70-1.30) 01/23/24 22:30 Est GFR (MDRD) Af Amer > 60 (>60) 01/23/24 22:30 Est GFR (MDRD) Non-Af > 60 (>60) 01/23/24 22:30 Glucose 115 mg/dL (65-99) H 01/23/24 22:30 Lactic Acid 2.7 mmol/L (0.4-2.0) H 01/23/24 22:30 Calcium 8.4 mg/dL (8.5-10.1) L 01/23/24 22:30 Corrected Calcium 9.3 mg/dL (8.5-10.1) 01/23/24 22:30 Total Bilirubin 0.30 mg/dL (0.2-1.0) 01/23/24 22:30 AST 25 Units/L (15-37) 01/23/24 22:30 ALT 26 Units/L (12-78) 01/23/24 22:30 Alkaline Phosphatase 135 Units/L (46-116) H 01/23/24 22:30 Total Protein 7.6 g/dL (6.4-8.2) 01/23/24 22: Albumin 2.9 g/dL (3.4-5.0) L 01/23/24 22:30 Globulin 4.7 g/dL (2.5-4.5) H 01/23/24 22:30 Albumin/Globulin Ratio 0.6 Ratio (1.1-2.1) L 01/23/24 22:30 Specimen Type Clean catch urine 01/23/24 22:13 Urine Color Yellow (YELLOW) 01/23/24 22:13 Urine Appearance Clear (CLEAR) 01/23/24 22:13 Urine pH 5.0 (5.0 - 8.0) 01/23/24 22:13 Ur Specific [place] 1.015 (1.000-1.030) 01/23/24 22:13 Urine Protein 1+ (NEGATIVE) 01/23/24 22:13 Urine Glucose (UA) Negative (NEGATIVE) 01/23/24 22:13 Urine Ketones Negative (NEGATIVE) 01/23/24 22:13 Urine Blood Negative (NEGATIVE) 01/23/24 22:13 Urine Nitrite Negative (NEGATIVE) 01/23/24 22:13 Urine Bilirubin Negative (NEGATIVE) 01/23/24 22:13 Urine Urobilinogen Normal (NORMAL) 01/23/24 22:13 Ur Leukocyte Esterase 1+ (NEGATIVE) 01/23/24 22:13 Urine RBC None seen /HPF (0-3) 01/23/24 22:13 Urine WBC 0-2 /HPF (0-5) 01/23/24 22:13 Ur Squamous Epith Cells Few /HPF (NEGATIVE) 01/23/24 22:13 Urine Bacteria Negative /HPF (NEGATIVE) 01/23/24 22:13 Urine Mucus Few /HPF (NEGATIVE) 01/23/24 22:13 Ur Culture Indicated? No/not indicated 01/23/24 22:13 XRAY XRAY Interpreted by: Radiologist X-ray Results: ct lle w/o: No obvious fracture or joint dislocation is seen. Extensive postsurgical changes are noted. Severe soft tissue edema is noted throughout the lateral aspect and dorsum of the foot. Opioid Opioid Risk Tool Age (Charbel box if 16-45): No History of Preadolescent Sexual Abuse: No Total: 0 Total Score Risk Category: Low Risk Copyright: Ronald DELCID predicting aberrant behaviors Discharge Plan Diagnosis Discharge Problem: Cellulitis of left foot, Sepsis Discharge Plan Patient Disposition: ADMITTED INPATIENT Condition: Stable Prescriptions: No Action aspirin 81 mg tablet,delayed release (DR/EC) 81 mg PO QDAY nitroglycerin 0.4 mg Tablet, Sublingual 0.4 mg SUBLINGUAL Q5M PRN Rx Instructions: do not exceed 3 doses per episode carvedilol 12.5 mg tablet 12.5 mg PO QDAY doxepin 25 mg capsule 25 - 50 mg PO QPM lisinopril 20 mg tablet 20 mg PO QDAY isosorbide mononitrate 60 mg tablet extended release 24 hr 60 mg PO QDAY pantoprazole 40 mg tablet,delayed release (DR/EC) 40 mg PO QDAY montelukast 10 mg tablet 10 mg PO QDAY hydrochlorothiazide 25 mg tablet 25 mg PO QDAY metformin 500 mg tablet extended release 24 hr 1,000 mg PO BID escitalopram oxalate 20 mg tablet 20 mg PO QDAY ezetimibe 10 mg tablet 10 mg PO QDAY rosuvastatin 20 mg tablet 20 mg PO QPM Health Concerns: Post Hospitalization: new medications and changes needed to prevent readmission or further decline. Pt educated and given instructions on all concerns. Plan of Treatment: Continue with present treatment and follow up plan. Pt is to keep follow up appointment as instructed and take medications as ordered. Follow ups/Referrals Follow ups/Referrals: JENNIFER CLARK [Primary Care Provider] - 3 days
[2024-01-23] MEDS ORDERED: MORPHINE SULFATE INJ 2 MG INJ ONE (22:23)
[2024-01-23] MEDS ORDERED: ZOSYN VIAL 4.5 GRAMS IV ONE (22:24)
[2024-01-23] MEDS ORDERED: NS 250 ML IV 250 ML IV ONE (22:24)
[2024-01-23 22:36] LABS: BILIRUBIN,URINE NEGATIVE (NEGATIVE); BLOOD/HEMOGLOBIN,URINE NEGATIVE (NEGATIVE); GLUCOSE, URINE NEGATIVE (NEGATIVE); KETONES,URINE NEGATIVE (NEGATIVE); LEUKOCYTE ESTERASE ,URINE 1+ (NEGATIVE); NITRITES,URINE NEGATIVE (NEGATIVE); PROTEIN,URINE 1+ (NEGATIVE); UROBILINOGEN,URINE NORMAL (NORMAL)
[2024-01-23 22:43] LABS: APPEARANCE,URINE CLEAR (CLEAR); COLOR,URINE YELLOW (YELLOW)
[2024-01-23 22:44] LABS: BACTERIA,URINE NEGATIVE /HPF (NEGATIVE); RBC,URINE NONE SEEN /HPF (0-3); SQUAMOUS EPITHELIAL CELL,UR FEW /HPF (NEGATIVE)
[2024-01-23] MEDS: ZOSYN VIAL 4.5 GRAMS 4.5 G in NS 100 ML IV 100 ML IV STA (22:44)
[2024-01-23] MEDS: MORPHINE SULFATE INJ 2 MG INJ IVP ONE (22:44)
[2024-01-23] MEDS: NS 250 ML IV 25 ML IV PRN (22:46)
[2024-01-23 22:48] LABS: BASOPHILS # (AUTO) 0.1 X10^3/uL (0.0-0.1); BASOPHILS % (AUTO) 0.5 % (0.2-1.0); EOSINOPHILS # (AUTO) 0.1 x10^3/uL (0.0-0.2); EOSINOPHILS % (AUTO) 0.5 % (0.9-2.9); HEMATOCRIT 26.7 % (42.0-54.0); HEMOGLOBIN 8.3 g/dL (13.5-18.0); LYMPHOCYTES # (AUTO) 1.5 X10^3/uL (1.3-2.9); LYMPHOCYTES % (AUTO) 8.3 % (21.0-51.0); MEAN CORPUSCULAR HEMOGLOBIN 24.4 pg (27.0-34.0); MEAN CORPUSCULAR HGB CONC 31.1 g/dL (33.0-35.0); MEAN CORPUSCULAR VOLUME 78.6 fL (80.0-100.0); MEAN PLATELET VOLUME 8.2 fL (7.4-11.0); MONOCYTES # (AUTO) 1.8 x10^3/uL (0.3-0.8); MONOCYTES % (AUTO) 10.3 % (0.0-13.0); NEUTROPHILS # (AUTO) 14.2 x10^3/uL (2.2-4.8); NEUTROPHILS % (AUTO) 80.4 % (42.0-75.0); PLATELET COUNT 358 X10^3/uL (150.0-450.0); RED CELL DISTRIBUTION WIDTH 17.8 % (11.6-16.5); WHITE BLOOD COUNT 17.7 X10^3/uL (3.6-10.0)
[2024-01-23 22:57] LABS: ALANINE AMINOTRANSFERASE 26 Units/L (12-78); ALBUMIN 2.9 g/dL (3.4-5.0); ALKALINE PHOSPHATASE 135 Units/L (46-116); ASPARTATE AMINO TRANSFERASE 25 Units/L (15-37); BLOOD UREA NITROGEN 13 mg/dL (7-18); CALCIUM 8.4 mg/dL (8.5-10.1); CARBON DIOXIDE 29.3 mmol/L (21-32); CHLORIDE 100 mmol/L (98-107); COR CA(FOR HYPOALB) 9.3 mg/dL (8.5-10.1); COR NA(FOR HYPERGLY) 137 mmol/L (136-145); CREATININE 1.13 mg/dL (0.70-1.30); GLUCOSE 115 mg/dL (65-99); POTASSIUM 3.9 mmol/L (3.5-5.1); SODIUM 137 mmol/L (136-145); TOTAL PROTEIN 7.6 g/dL (6.4-8.2); eGFR NON BLACK RACES > 60 (>60)
--- NOTE | 2024-01-23 23:40 | CT ---
EXAM: CT LEFT LOWER EXTREMITY WITHOUT CONTRAST HISTORY: Swelling and redness COMPARISON: None. TECHNIQUE: Axial images were acquired of the left lower extremity without IV contrast. Sagittal and coronal refo rmatted images were provided. All images were reviewed in a variety of windows and levels. RADIATION REDUCTION TECHNIQUE: Automated exposure control, Adjustment of the mA and/or kV according t o patient size, or iterative reconstruction techniques were used. FINDINGS: Please note that lack of IV contrast limits evaluation of soft tissue structures and vascular detail. Extensive postoperative changes are seen in the talocalcaneal syndesmosis as well as postsurgical scr ews going into the calcaneus and additional postsurgical changes in the tarsal bones. There is diffu se beam hardening artifact which limits the examination. Severe osteopenia with pes planus deformity is present. Extensive osteopenia is noted. No obvious fracture or joint dislocation is seen. Iza re soft tissue edema is noted throughout the lateral aspect of the foot as well as the dorsum of the foot. IMPRESSION: No obvious fracture or joint dislocation is seen. Extensive postsurgical changes are noted. Severe soft tissue edema is noted throughout the lateral aspect and dorsum of the foot THIS IS AN ELECTRONICALLY VERIFIED FINAL REPORT 01/23/2024 11:37 PM - Electronically signed by Sj Davila MD
[2024-01-24] MEDS ORDERED: MORPHINE SULFATE INJ 2 MG INJ ONE (00:03)
[2024-01-24] MEDS ORDERED: NS 250 ML IV 25 ML IV PRN (00:08)
[2024-01-24] MEDS: MORPHINE SULFATE INJ 2 MG INJ IVP ONE (00:09)
[2024-01-24] MEDS ORDERED: VANCOMYCIN IV *PREMIX 1 G/200 ML BAG 1 G/200 ML PIGGYBACK IV ONE (00:31)
[2024-01-24] MEDS: VANCOMYCIN IV *PREMIX 1 G/200 ML BAG 1 G/200 ML PIGGYBACK IV STA (00:37)
[2024-01-24] MEDS: NS 1,000 ML IV 1,000 ML IV SCH (01:12)
[2024-01-24] MEDS: VANCOMYCIN IV *PREMIX 1 G/200 ML BAG 1 G/200 ML PIGGYBACK IV ONE (01:28)
[2024-01-24] MEDS: ZOFRAN INJ 4 MG VIAL IVP PRN (02:14)
[2024-01-24 02:27] VITALS: BMI 51.2
[2024-01-24] MEDS: MORPHINE SULFATE INJ 2 MG INJ IVP PRN (04:07)
[2024-01-24 05:10] LABS: BASOPHILS # (AUTO) 0.1 X10^3/uL (0.0-0.1); BASOPHILS % (AUTO) 0.6 % (0.2-1.0); EOSINOPHILS # (AUTO) 0.1 x10^3/uL (0.0-0.2); EOSINOPHILS % (AUTO) 0.4 % (0.9-2.9); HEMATOCRIT 23.3 % (42.0-54.0); HEMOGLOBIN 7.4 g/dL (13.5-18.0); LYMPHOCYTES # (AUTO) 1.1 X10^3/uL (1.3-2.9); LYMPHOCYTES % (AUTO) 5.7 % (21.0-51.0); MEAN CORPUSCULAR HGB CONC 31.9 g/dL (33.0-35.0); MEAN CORPUSCULAR VOLUME 78.6 fL (80.0-100.0); MEAN PLATELET VOLUME 8.7 fL (7.4-11.0); MONOCYTES # (AUTO) 1.9 x10^3/uL (0.3-0.8); NEUTROPHILS # (AUTO) 15.4 x10^3/uL (2.2-4.8); NEUTROPHILS % (AUTO) 83.3 % (42.0-75.0); PLATELET COUNT 321 X10^3/uL (150.0-450.0); RED BLOOD COUNT 2.96 X10^6/uL (4.7-6.0); WHITE BLOOD COUNT 18.5 X10^3/uL (3.6-10.0)
[2024-01-24 05:21] LABS: ALANINE AMINOTRANSFERASE 22 Units/L (12-78); ALBUMIN 2.4 g/dL (3.4-5.0); ALKALINE PHOSPHATASE 117 Units/L (46-116); ASPARTATE AMINO TRANSFERASE 26 Units/L (15-37); BLOOD UREA NITROGEN 14 mg/dL (7-18); CALCIUM 7.8 mg/dL (8.5-10.1); CARBON DIOXIDE 25.4 mmol/L (21-32); CHLORIDE 99 mmol/L (98-107); COR CA(FOR HYPOALB) 9.1 mg/dL (8.5-10.1); COR NA(FOR HYPERGLY) 135 mmol/L (136-145); CREATININE 1.28 mg/dL (0.70-1.30); GLUCOSE 130 mg/dL (65-99); POTASSIUM 3.8 mmol/L (3.5-5.1); SODIUM 134 mmol/L (136-145); TOTAL PROTEIN 6.7 g/dL (6.4-8.2); eGFR NON BLACK RACES > 60 (>60)
[2024-01-24] MEDS: ZOSYN VIAL 3.375 GRAMS 3.375 G in NS 100 ML IV 100 ML IV SCH (05:30)
[2024-01-24] MEDS: PHARMACY CONSULT - VANCOMYCIN XX SCH (08:11)
[2024-01-24] MEDS: PERCOCET TAB 5/325 MG PO PRN ×2 (08:18→13:32)
[2024-01-24] MEDS ORDERED: PERCOCET TAB 5/325 MG PO PRN (09:27)
[2024-01-24] MEDS: PERCOCET TAB 5/325 MG PO ONE (09:31)
--- NOTE | 2024-01-24 09:47 | RAD ---
EXAM:Left ankle three viewsHISTORY:InfectionCOMPARISON:Report only no image [id number]:Osteopenia with marked soft tissue swelling. Minimal periosteal reaction noted at the anterior surface of the distal tibia.Tibiotalar arthroplasty components anatomically related.Arthrodesis surgical hardware in the hindfoot.IMPRESSION:Osteopenia with marked nonspecific soft tissue swelling. Extensive postsurgical hardware in the ankle joint and hindfoot. Combination of demineralization and soft tissue swelling nonspecific but concerning for early bone infection. Correlate clinically with follow-up.THIS IS AN ELECTRONICALLY VERIFIED FINAL REPORT01/24/2024 9:44 AM - Electronically signed by Ronaldo Khan MD
--- NOTE | 2024-01-24 09:51 | RAD ---
EXAM:CHEST, 1 VIEWHISTORY:infection;COMPARISON:Prior study or studies were utilized for comparison during interpretation with the most relevant dated 01/11/2024TECHNIQUE:CHEST, 1 VIEWFINDINGS:Chest:Lines and tubes: Cardiac leads overlie the chest.Mediastinum: Cardiac and mediastinal shadow is within normal limits for size and contour.Pulmonary vessels: No pulmonary vascular congestion.Lung ozuna: No suspicious airspace opacity.Pleura: No effusion. No pneumothorax.Bones and soft tissues: No acute osseous or soft tissue abnormality.IMPRESSION:1. No acute cardiopulmonary abnormalityTHIS IS AN ELECTRONICALLY VERIFIED FINAL REPORT01/24/2024 9:48 AM - Electronically signed by Barry Nguyen MD
[2024-01-24] MEDS: ZYVOX 600MG IV 600 MG/300 ML BAG IV SCH (11:35)
[2024-01-24] MEDS ORDERED: VANCOMYCIN IV *PREMIX 2 G/400 ML BAG 2 G/400 ML PIGGYBACK IV SCH (12:00)
--- NOTE | 2024-01-24 13:26 | NOTE.SOAP ---
Soap Note Note for Day of Date of Exam: 01/24/24 Subjective Data Subjective Data: 48M with end stage arthritis and foot contracture to the left lower extremitiy, presents with hot swollen left ankle and leukocytosis. Patient underwent a total ankle replacement 12/15/2023 and has fully healed without incidence. Patient notes that he felt a mass on in his groin and noted sweling to the left ankle therefor came to the hospital. He denies nausea, vomiting, fever, chills or SOB Objective Data Objective Data: Edema and erythema to the left ankle, calor in temperature. No open wounds or lesions. Neurovascular status intact Assessment Assessment: 48 year old male with leukocytosis and possible septic joint Plan Plan: Patient was seen bedside, diagnosis and treatment explained in great deal. Treating as septic joint until proven otherwise. Elevated white count and clinical signs of infection. CT reviewed; no fluid collection or lucency noted around the left ankle implant. Doppler ordered. Patient on scheduled IV antibiotics. Plan to take patient to OR tomorrow pending availabilities for a left ankle arthrogram with join aspirate. NPO after midnight
--- NOTE | 2024-01-24 13:57 | VAS ---
EXAM: LOWER EXT VENOUS, UNILATERAL HISTORY: Left lower extremity pain and TECHNIQUE: Multiple grayscale sonographic images were obtained. Color duplex Doppler evaluation was performed COMPARISON: None FINDINGS: The common femoral vein, superficial femoral vein, popliteal vein, and posterior tibial veins are p atent demonstrating normal flow, compression, and distal augmentation. IMPRESSION: Exam negative for deep venous thrombosis left lower extremity THIS IS AN ELECTRONICALLY VERIFIED FINAL REPORT 01/24/2024 1:53 PM - Electronically signed by Awais Foley MD
[2024-01-24] MEDS: RESTORIL CAP 15 MG PO PRN (21:49)
[2024-01-25 06:33] LABS: BASOPHILS # (AUTO) 0.1 X10^3/uL (0.0-0.1); BASOPHILS % (AUTO) 0.7 % (0.2-1.0); EOSINOPHILS # (AUTO) 0.1 x10^3/uL (0.0-0.2); EOSINOPHILS % (AUTO) 0.5 % (0.9-2.9); HEMATOCRIT 24.1 % (42.0-54.0); HEMOGLOBIN 7.5 g/dL (13.5-18.0); LYMPHOCYTES # (AUTO) 1.8 X10^3/uL (1.3-2.9); MEAN CORPUSCULAR HEMOGLOBIN 24.4 pg (27.0-34.0); MEAN CORPUSCULAR VOLUME 78.8 fL (80.0-100.0); MEAN PLATELET VOLUME 8.6 fL (7.4-11.0); MONOCYTES # (AUTO) 1.7 x10^3/uL (0.3-0.8); NEUTROPHILS % (AUTO) 77.8 % (42.0-75.0); PLATELET COUNT 347 X10^3/uL (150.0-450.0); RED BLOOD COUNT 3.06 X10^6/uL (4.7-6.0); RED CELL DISTRIBUTION WIDTH 17.6 % (11.6-16.5); WHITE BLOOD COUNT 16.7 X10^3/uL (3.6-10.0)
[2024-01-25 06:56] LABS: ALANINE AMINOTRANSFERASE 29 Units/L (12-78); ALBUMIN 2.5 g/dL (3.4-5.0); ALKALINE PHOSPHATASE 128 Units/L (46-116); ASPARTATE AMINO TRANSFERASE 33 Units/L (15-37); BLOOD UREA NITROGEN 6 mg/dL (7-18); CALCIUM 8.1 mg/dL (8.5-10.1); CARBON DIOXIDE 29.7 mmol/L (21-32); CHLORIDE 101 mmol/L (98-107); COR CA(FOR HYPOALB) 9.3 mg/dL (8.5-10.1); CREATININE 1.02 mg/dL (0.70-1.30); GLUCOSE 84 mg/dL (65-99); MAGNESIUM 1.7 mg/dL (2.0-2.9); POTASSIUM 4.3 mmol/L (3.5-5.1); SODIUM 137 mmol/L (136-145); TOTAL PROTEIN 7.3 g/dL (6.4-8.2); eGFR NON BLACK RACES > 60 (>60)
[2024-01-25] MEDS: BETADINE SOLN TOP ONE (08:43)
[2024-01-25] MEDS: HIBICLENS WASH EXT ONE (08:43)
--- NOTE | 2024-01-25 09:15 | NOTE.SOAP ---
Soap Note Note for Day of Date of Exam: 01/25/24 Plan Plan: Patient was seen bedside this am, discussed with patient and nurse the circumstances. I will have to explant the implant as the infection will never be fully treated otherwise. Patient's ankle opened up and drained significantly this morning. A culture was collected by the nurse and dressings were applied. We have changed the procedure to explantation of the implant with implantation of an antibiotic spacer. Patient understands and agrees to the following procedure. He understands that he will not be weight bearing after this procedure as well. This is a staged procedure and patient understands the possibility of ankle fusion as a definitive procedure. Patient NPO until procedure
[2024-01-25] MEDS: PROCRIT or EPOGEN VIAL 10,000 UNITS SC ONE (09:52)
--- NOTE | 2024-01-25 11:01 | RAD ---
EXAM:Portable chestHISTORY:PICC placementCOMPARISON:01/24/2024FINDINGS:T here is new left-sided PICC line with its tip in the expected position of the superior vena cava. Heart is enlarged. No congestive heart failure is noted no acute alveolar infiltrates or pleural effusions are identified. Bony thorax is unremarkable.IMPRESSION:Left PICC tip superior vena cavaMild cardiomegaly without congestive heart failureNo acute infiltratesTHIS IS AN ELECTRONICALLY VERIFIED FINAL REPORT01/25/2024 10:58 AM - Electronically signed by Awais Foley MD
--- NOTE | 2024-01-25 11:03 | DR.UPDATE ---
H&P Update Prescription drug monitoring program results: PDMP was not reviewed H&P Reviewed: Yes Any changes to H&P?: No Patient was examined?: Yes Vital Signs: Temp Pulse Pulse Resp BP BP Pulse Ox 01/25/24 10:00 143/62 01/25/24 10:00 110 H 26 H 96 01/25/24 09:45 112 H 26 H 92 L 01/25/24 09:30 110 H 25 H 93 L 01/25/24 09:22 107 H 27 H 94 L 01/25/24 09:22 138/74 01/25/24 09:22 138/74 01/25/24 09:22 138/74 01/25/24 09:22 138/74 01/25/24 09:15 99.6 F 109 H 26 H 98 01/25/24 09:56 20 01/25/24 09:00 20 01/25/24 09:00 113 H 39 H 01/25/24 08:45 113 H 28 H 01/25/24 08:30 114 H 39 H 01/25/24 08:15 119 H 30 H 01/25/24 08:00 122 H 26 H 01/25/24 07:45 120 H 44 H 01/25/24 07:30 109 H 30 H 01/25/24 07:16 111 H 51 H 01/25/24 08:00 20 01/25/24 07:00 112 H 26 H 01/25/24 07:00 126/68 01/25/24 06:45 111 H 37 H 01/25/24 06:30 109 H 28 H 01/25/24 06:15 109 H 24 01/25/24 06:00 136/77 01/25/24 06:00 108 H 25 H 01/25/24 05:45 109 H 28 H 01/25/24 05:30 109 H 48 H 01/25/24 05:15 108 H 32 H 01/25/24 05:00 106 H 33 H 01/25/24 05:00 133/71 01/25/24 04:45 107 H 30 H 01/25/24 04:30 104 H 24 01/25/24 04:15 103 H 22 01/25/24 04:00 142/72 01/25/24 04:00 142/72 01/25/24 04:00 101 H 38 H 01/25/24 03:45 104 H 25 H 01/25/24 03:30 103 H 30 H 01/25/24 03:16 100 H 30 H 01/25/24 03:00 135/75 01/25/24 03:00 135/75 01/25/24 03:00 104 H 38 H 01/25/24 02:45 104 H 24 01/25/24 02:30 106 H 24 94 L 01/25/24 02:15 104 H 41 H 97 01/25/24 02:00 138/68 01/25/24 02:00 138/68 01/25/24 02:00 111 H 28 H 96 01/25/24 01:45 105 H 20 01/25/24 01:30 106 H 23 97 01/25/24 01:15 109 H 24 96 01/25/24 01:00 107 H 28 H 97 01/25/24 01:00 144/72 01/25/24 00:45 107 H 24 97 01/25/24 00:30 109 H 23 01/25/24 00:15 111 H 22 01/25/24 00:00 97/53 01/25/24 00:00 97/53 01/25/24 00:00 97/53 01/25/24 00:00 109 H 01/24/24 23:45 114 H 01/24/24 23:30 111 H 41 H 99 01/24/24 23:15 111 H 98 01/24/24 23:00 109 H 54 H 01/24/24 23:00 131/62 01/24/24 23:00 131/62 01/24/24 23:00 131/62 01/24/24 22:45 102 H 19 01/25/24 07:00 01/25/24 06:19 22 01/25/24 06:00 108 H 21 136/77 01/25/24 05:00 105 H 23 133/71 96 01/25/24 05:49 22 01/25/24 04:00 99.7 F H 105 H 21 142/72 97 01/25/24 03:00 104 H 23 135/75 01/25/24 02:00 104 H 19 138/68 97 01/25/24 01:00 112 H 144/72 01/25/24 00:07 18 01/25/24 00:00 109 H 19 97/53 90 L 01/24/24 22:27 20 01/24/24 23:00 99.1 F 112 H 23 131/62 99 01/24/24 22:00 106 H 21 147/82 100 01/24/24 21:00 105 H 18 123/68 96 01/24/24 20:01 20 01/24/24 19:00 01/24/24 20:00 97.9 F 103 H 23 144/76 98 01/24/24 19:00 101 H 17 143/78 97 01/24/24 23:07 20 01/24/24 21:57 21 01/24/24 19:01 20 01/24/24 18:00 135/72 01/24/24 18:00 101 H 43 H 01/24/24 17:45 100 H 21 01/24/24 17:30 104 H 01/24/24 17:26 107 H 82 L 01/24/24 17:26 124/78 01/24/24 17:16 110 H 01/24/24 16:30 95 H 46 H 01/24/24 16:15 95 H 01/24/24 16:07 20 01/24/24 16:00 135/73 01/24/24 16:00 97 H 55 H 95 01/24/24 15:45 97 H 25 H 98 01/24/24 15:30 98 H 38 H 98 01/24/24 15:37 20 01/24/24 14:32 20 01/24/24 15:15 98 H 31 H 96 01/24/24 15:00 100 H 23 95 01/24/24 15:00 137/72 01/24/24 14:45 103 H 22 95 01/24/24 14:30 101 H 32 H 96 01/24/24 14:15 105 H 27 H 99 01/24/24 14:00 98.8 F 104 H 23 100 01/24/24 14:00 147/83 01/24/24 13:59 104 H 23 99 01/24/24 13:45 104 H 33 H 98 01/24/24 13:41 121/72 01/24/24 13:41 109 H 54 H 100 01/24/24 13:30 101 H 96 01/24/24 13:15 104 H 54 H 100 01/24/24 13:00 105 H 100 01/24/24 12:45 100 H 50 H 100 01/24/24 13:32 20 01/24/24 12:30 106 H 29 H 99 01/24/24 12:15 100 H 49 H 100 01/24/24 12:00 122/64 01/24/24 12:00 122/64 01/24/24 12:00 98 H 55 H 97 01/24/24 11:45 99 H 22 96 01/24/24 11:30 106 H 36 H 96 01/24/24 11:15 112 H 48 H 01/24/24 11:41 98.7 F 01/24/24 11:00 127/69 01/24/24 11:00 100 H 52 H 96 01/24/24 10:45 100 H 16 96 01/24/24 10:44 101 H 23 97 01/24/24 10:44 129/69 01/24/24 10:30 109 H 61 H 96 01/24/24 10:15 107 H 82 H 100 01/24/24 10:31 21 01/24/24 09:45 16 01/24/24 10:00 99.4 F 107 H 59 H 97 01/24/24 09:45 109 H 32 H 96 01/24/24 09:30 110 H 25 H 99 01/24/24 09:31 21 01/24/24 09:15 21 01/24/24 09:15 109 H 35 H 95 01/24/24 09:06 121/55 01/24/24 09:06 115 H 45 H 95 01/24/24 09:00 106 H 41 H 01/24/24 08:45 109 H 01/24/24 08:30 107 H 38 H 01/24/24 08:15 100.2 F H 105 H 29 H 100 01/24/24 09:18 21 01/24/24 08:18 21 01/24/24 08:00 101 H 20 98 01/24/24 08:00 132/63 01/24/24 07:45 101 H 98 01/24/24 07:30 104 H 17 99 01/24/24 07:15 108 H 38 H 99 01/24/24 07:00 111/59 01/24/24 07:00 103 H 12 99 01/24/24 06:45 108 H 95 03/27/24 06:30 105 H 34 H 93 L 01/24/24 06:15 100 H 15 95 01/24/24 06:00 114/63 01/24/24 06:00 114/63 01/24/24 07:00 01/24/24 06:00 101 H 22 97 01/24/24 06:00 114/63 01/24/24 06:00 114/63 01/24/24 05:45 101 H 20 96 01/24/24 05:30 101 H 24 96 01/24/24 05:15 109 H 22 01/24/24 05:00 101 H 26 H 97 01/24/24 05:00 105/50 01/24/24 05:00 105/50 01/24/24 05:00 97.7 F 101 H 26 H 105/50 97 01/24/24 04:45 102 H 96 01/24/24 04:30 106 H 21 96 01/24/24 04:15 110 H 20 98 01/24/24 04:00 113/56 01/24/24 04:00 109 H 17 113/56 99 01/24/24 03:45 106 H 22 98 01/24/24 03:30 105 H 22 95 01/24/24 03:00 106 H 24 95 01/24/24 03:00 114/64 01/24/24 02:45 104 H 27 H 100 01/24/24 02:30 104 H 18 94 L 01/24/24 02:24 103 H 21 99 01/24/24 02:24 127/62 01/24/24 02:15 117 H 16 01/24/24 02:00 121 H 24 100 01/24/24 02:00 96/58 01/24/24 01:57 96/53 01/24/24 01:57 124 H 14 100 01/24/24 01:56 123 H 16 98 01/24/24 01:56 74/37 01/24/24 01:51 95 01/24/24 01:30 99.5 F 120 H 20 99 01/24/24 00:39 01/24/24 05:33 16 01/24/24 05:32 18 01/24/24 04:07 16 01/24/24 01:16 120 H 99 01/24/24 00:39 20 01/23/24 23:44 20 01/23/24 23:14 20 01/24/24 00:09 20 01/23/24 23:00 125 H 20 108/60 98 01/23/24 22:44 20 01/23/24 21:03 99.6 F 124 H 20 132/66 100 O2 Del Method 01/25/24 10:00 01/25/24 10:00 01/25/24 09:45 01/25/24 09:30 01/25/24 09:22 01/25/24 09:22 01/25/24 09:22 01/25/24 09:22 01/25/24 09:22 01/25/24 09:15 01/25/24 09:56 01/25/24 09:00 01/25/24 09:00 01/25/24 08:45 01/25/24 08:30 01/25/24 08:15 01/25/24 08:00 01/25/24 07:45 01/25/24 07:30 01/25/24 07:16 01/25/24 08:00 01/25/24 07:00 01/25/24 07:00 01/25/24 06:45 01/25/24 06:30 01/25/24 06:15 01/25/24 06:00 01/25/24 06:00 01/25/24 05:45 01/25/24 05:30 01/25/24 05:15 01/25/24 05:00 01/25/24 05:00 01/25/24 04:45 01/25/24 04:30 01/25/24 04:15 01/25/24 04:00 01/25/24 04:00 01/25/24 04:00 01/25/24 03:45 01/25/24 03:30 01/25/24 03:16 01/25/24 03:00 01/25/24 03:00 01/25/24 03:00 01/25/24 02:45 01/25/24 02:30 01/25/24 02:15 01/25/24 02:00 01/25/24 02:00 01/25/24 02:00 01/25/24 01:45 01/25/24 01:30 01/25/24 01:15 01/25/24 01:00 01/25/24 01:00 01/25/24 00:45 01/25/24 00:30 01/25/24 00:15 01/25/24 00:00 01/25/24 00:00 01/25/24 00:00 01/25/24 00:00 01/24/24 23:45 01/24/24 23:30 01/24/24 23:15 01/24/24 23:00 01/24/24 23:00 01/24/24 23:00 01/24/24 23:00 01/24/24 22:45 01/25/24 07:00 Room Air 01/25/24 06:19 01/25/24 06:00 Room Air 01/25/24 05:00 Room Air 01/25/24 05:49 01/25/24 04:00 Room Air 01/25/24 03:00 Room Air 01/25/24 02:00 Room Air 01/25/24 01:00 Room Air 01/25/24 00:07 01/25/24 00:00 Room Air 01/24/24 22:27 01/24/24 23:00 Room Air 01/24/24 22:00 Room Air 01/24/24 21:00 Room Air 01/24/24 20:01 01/24/24 19:00 Room Air 01/24/24 20:00 Room Air 01/24/24 19:00 Room Air 01/24/24 23:07 01/24/24 21:57 01/24/24 19:01 01/24/24 18:00 01/24/24 18:00 01/24/24 17:45 01/24/24 17:30 01/24/24 17:26 01/24/24 17:26 01/24/24 17:16 01/24/24 16:30 01/24/24 16:15 01/24/24 16:07 01/24/24 16:00 01/24/24 16:00 01/24/24 15:45 01/24/24 15:30 01/24/24 15:37 01/24/24 14:32 01/24/24 15:15 01/24/24 15:00 01/24/24 15:00 01/24/24 14:45 01/24/24 14:30 01/24/24 14:15 01/24/24 14:00 01/24/24 14:00 01/24/24 13:59 01/24/24 13:45 01/24/24 13:41 01/24/24 13:41 01/24/24 13:30 01/24/24 13:15 01/24/24 13:00 01/24/24 12:45 01/24/24 13:32 01/24/24 12:30 01/24/24 12:15 01/24/24 12:00 01/24/24 12:00 01/24/24 12:00 01/24/24 11:45 01/24/24 11:30 01/24/24 11:15 01/24/24 11:41 01/24/24 11:00 01/24/24 11:00 01/24/24 10:45 01/24/24 10:44 01/24/24 10:44 01/24/24 10:30 01/24/24 10:15 01/24/24 10:31 01/24/24 09:45 01/24/24 10:00 01/24/24 09:45 01/24/24 09:30 01/24/24 09:31 01/24/24 09:15 01/24/24 09:15 01/24/24 09:06 01/24/24 09:06 01/24/24 09:00 01/24/24 08:45 01/24/24 08:30 01/24/24 08:15 01/24/24 09:18 01/24/24 08:18 01/24/24 08:00 01/24/24 08:00 01/24/24 07:45 01/24/24 07:30 01/24/24 07:15 01/24/24 07:00 01/24/24 07:00 01/24/24 06:45 01/24/24 06:30 01/24/24 06:15 01/24/24 06:00 01/24/24 06:00 01/24/24 07:00 Room Air 01/24/24 06:00 01/24/24 06:00 01/24/24 06:00 01/24/24 05:45 01/24/24 05:30 01/24/24 05:15 01/24/24 05:00 01/24/24 05:00 01/24/24 05:00 01/24/24 05:00 01/24/24 04:45 01/24/24 04:30 01/24/24 04:15 01/24/24 04:00 01/24/24 04:00 01/24/24 03:45 01/24/24 03:30 01/24/24 03:00 01/24/24 03:00 01/24/24 02:45 01/24/24 02:30 01/24/24 02:24 01/24/24 02:24 01/24/24 02:15 01/24/24 02:00 01/24/24 02:00 01/24/24 01:57 01/24/24 01:57 01/24/24 01:56 01/24/24 01:56 01/24/24 01:51 01/24/24 01:30 01/24/24 00:39 Room Air 01/24/24 05:33 01/24/24 05:32 01/24/24 04:07 01/24/24 01:16 01/24/24 00:39 01/23/24 23:44 01/23/24 23:14 01/24/24 00:09 01/23/24 23:00 Room Air 01/23/24 22:44 01/23/24 21:03 Procedures (ALL) - Central Line Placement PCM.CLCO: written consent Time out performed: Yes Patient placed pm monitor/pulse ox: Yes MD prep: mask, gown, gloves, other Centrial line prep: chlorhexidine scrub, sterile drapes applied Local anesthsia used: lidocane 1% Ultrasound used for placement: Yes (left basilic id'd via u/s and cannulation visualized) Central line lumen ininserted: double (5.5fr arrow pressure picc) Post procedure: good blood return, all ports aspirated, flushed,capped, sterile dressing applied Post procedure xray: tip oc catheter in good position (appears svc; radiology report pending. 50cm cath with 0cm exposed) Patient tolerated procedure: Yes Complications: none
[2024-01-25] MEDS: NOZIN NASAL SANITIZER TP ONE (11:15)
[2024-01-25] MEDS: NS 1,000 ML IV 1,000 ML ONE (13:02)
[2024-01-25] MEDS ORDERED: REGLAN INJ 10 MG VIAL IVP PRN (13:08)
[2024-01-25] MEDS ORDERED: BARHEMSYS INJ IVP PRN (13:08)
[2024-01-25] MEDS ORDERED: ZOFRAN INJ 4 MG VIAL IVP PRN (13:08)
[2024-01-25] MEDS: REGLAN INJ 10 MG VIAL ONE (13:15)
[2024-01-25] MEDS: QUELICIN (OR ANECTINE) ONE (13:15)
[2024-01-25] MEDS: ZEMURON 100 MG VIAL ONE (13:15)
[2024-01-25] MEDS: ZOFRAN INJ 4 MG VIAL ONE (13:15)
[2024-01-25] MEDS: BETADINE SOLN ONE (13:15)
[2024-01-25] MEDS: VERSED ONE (13:15)
[2024-01-25] MEDS ORDERED: SUPRANE ONE (13:15)
[2024-01-25] MEDS: PEPCID 20 MG VIAL ONE (13:15)
[2024-01-25] MEDS: DIPRIVAN VIAL 20 ML ONE (13:15)
[2024-01-25] MEDS: FENTANYL VIAL INJ 100 mcg ONE (13:15)
[2024-01-25] MEDS: TOBRAMYCIN SULFATE ONE (13:39)
[2024-01-25] MEDS: MARCAINE 0.25% INJ ONE (13:39)
[2024-01-25] MEDS: DILAUDID INJ ONE ×2 (13:45→16:18)
[2024-01-25] MEDS: BRIDION ONE (14:27)
--- NOTE | 2024-01-25 15:04 | DR.OPNOTE ---
OP NOTE Pre-Op Diagnosis: septic joint, left ankle Post-Op Diagnosis: Same Procedure Date Date Of Procedure: 01/25/24 Procedure: Incision and drainage to bone, left ankle Explantation of implant, left ankle Implantation of antibiotic cement spacer, left ankle application of splint, left ankle Type of Anesthesia: General Anesthetic w/ETT Findings: See Dictation Specimen/Pathology: Bone from tibia and talus EBL: 50cc Drains/Tubes Comment: None Hardware: Antibiotic cement Cultures: x2 left ankle Complications:: None Needle/Sponge Count:: Counted Disposition/Condition: Pt. tolerated procedure without difficulty. Extubated in the OR and taken to PACU in stable condition.
[2024-01-25] MEDS: DILAUDID INJ IVP PRN (15:11)
[2024-01-25] MEDS: BENADRYL INJ 50 MG VIAL IVP PRN (15:35)
[2024-01-25] MEDS: NORMODYNE INJ 20 MG VIAL ONE (16:16)
[2024-01-25] MEDS: BENADRYL INJ 50 MG VIAL ONE (16:18)
[2024-01-25] MEDS: NovoLIN R (or HumuLIN R) SUBCUT PRN (18:07)
[2024-01-25] MEDS: NYSTATIN POWDER TOP PRN (18:09)
[2024-01-26 05:07] LABS: HEMATOCRIT 20.2 % (42.0-54.0); RED CELL DISTRIBUTION WIDTH 17.5 % (11.6-16.5)
[2024-01-26 05:14] LABS: BASOPHILS # (AUTO) 0.1 X10^3/uL (0.0-0.1); BASOPHILS % (AUTO) 0.6 % (0.2-1.0); EOSINOPHILS % (AUTO) 0.2 % (0.9-2.9); LYMPHOCYTES # (AUTO) 1.1 X10^3/uL (1.3-2.9); LYMPHOCYTES % (AUTO) 7.2 % (21.0-51.0); MEAN CORPUSCULAR HEMOGLOBIN 24.8 pg (27.0-34.0); MEAN CORPUSCULAR HGB CONC 31.5 g/dL (33.0-35.0); MEAN CORPUSCULAR VOLUME 78.7 fL (80.0-100.0); MEAN PLATELET VOLUME 8.6 fL (7.4-11.0); MONOCYTES # (AUTO) 2.1 x10^3/uL (0.3-0.8); MONOCYTES % (AUTO) 14.3 % (0.0-13.0); NEUTROPHILS # (AUTO) 11.5 x10^3/uL (2.2-4.8); NEUTROPHILS % (AUTO) 77.7 % (42.0-75.0); PLATELET COUNT 374 X10^3/uL (150.0-450.0); RED BLOOD COUNT 2.56 X10^6/uL (4.7-6.0); WHITE BLOOD COUNT 14.8 X10^3/uL (3.6-10.0)
[2024-01-26 05:28] LABS: ALANINE AMINOTRANSFERASE 24 Units/L (12-78); ALKALINE PHOSPHATASE 111 Units/L (46-116); ASPARTATE AMINO TRANSFERASE 19 Units/L (15-37); BLOOD UREA NITROGEN 9 mg/dL (7-18); CALCIUM 7.9 mg/dL (8.5-10.1); CARBON DIOXIDE 27.9 mmol/L (21-32); CHLORIDE 102 mmol/L (98-107); COR CA(FOR HYPOALB) 9.5 mg/dL (8.5-10.1); COR NA(FOR HYPERGLY) 140 mmol/L (136-145); CREATININE 0.99 mg/dL (0.70-1.30); GLUCOSE 208 mg/dL (65-99); POTASSIUM 4.3 mmol/L (3.5-5.1); SODIUM 137 mmol/L (136-145); TOTAL PROTEIN 6.6 g/dL (6.4-8.2); eGFR NON BLACK RACES > 60 (>60)
[2024-01-26 05:36] LABS: HEMOGLOBIN 6.4 g/dL (13.5-18.0)
[2024-01-26 05:37] LABS: ANISOCYTOSIS SLIGHT; HYPOCHROMASIA SLIGHT; MICROCYTOSIS SLIGHT; PLATELET MORPHOLOGY COMMENT NORMAL (NORMAL)
[2024-01-26 05:38] LABS: TARGET CELLS PRESENT
--- NOTE | 2024-01-26 06:24 | NOTE.SOAP ---
Soap Note Note for Day of Date of Exam: 01/26/24 Subjective Data Subjective Data: Patient POD1 s/p I&D, explantation of implant, implation of antibiotic spacer (DOS: 01/25/24). He is doing well this am, although experiencing pain and burning in his ankle. He is able to move his toes. Denies any constitutional symptoms at this time. Objective Data Objective Data: Dressings are c/d/i without strikethrough this am. Patient able to move toes. Neurovascular status intact Assessment Assessment: 48M with septic joint of the left ankle, s/p left ankle I&D, removal of implant and implantation of antibiotic spacer (DOS: 01/25/24) Anemia Plan Plan: Patient doing well this am, he is experiencing pain and burning in his ankle. Dressings are c/d/i without strikethrough. Dressed with xeroform gauze, abd and posterior splint. Low hgb this am, will be monitoring closely. Type and screen was done. Patient will likely need multiple procedures pending results from the bone biopsies. PICC line placed yesterday, patient understands he will be on a course of IV antibiotics. Will change the dressings tomorrow to evaluate incision. Will follow
[2024-01-26] MEDS ORDERED: DILAUDID INJ IVP PRN (06:25)
[2024-01-26] MEDS ORDERED: CONSULT PHARMACY - POTASSIUM & MAGNESIUM XX SCH (07:00)
[2024-01-26] MEDS: MAG-OX TAB PO SCH (08:45)
[2024-01-26] MEDS: DILAUDID INJ IVP PRN (08:52)
[2024-01-26] MEDS ORDERED: NS 250 ML IV 500 ML IV ONE (11:36)
[2024-01-26] MEDS: MAGNESIUM SULFATE 1 GRAM/100 mL PREMIX 1 G/100 ML BAG IV SCH (11:46)
[2024-01-26] MEDS: NS 250 ML IV 25 ML IV PRN (12:11)
[2024-01-26 20:30] LABS: HEMOGLOBIN 8.7 g/dL (13.5-18.0)
[2024-01-26 20:33] LABS: HEMATOCRIT 27.8 % (42.0-54.0)
[2024-01-26] MEDS ORDERED: NS 100 ML IV 100 ML ONE (21:23)
[2024-01-27 05:15] LABS: BASOPHILS # (AUTO) 0.1 X10^3/uL (0.0-0.1); BASOPHILS % (AUTO) 0.7 % (0.2-1.0); EOSINOPHILS # (AUTO) 0.3 x10^3/uL (0.0-0.2); EOSINOPHILS % (AUTO) 1.9 % (0.9-2.9); HEMATOCRIT 26.2 % (42.0-54.0); HEMOGLOBIN 8.3 g/dL (13.5-18.0); LYMPHOCYTES # (AUTO) 2.5 X10^3/uL (1.3-2.9); LYMPHOCYTES % (AUTO) 18.1 % (21.0-51.0); MEAN CORPUSCULAR HEMOGLOBIN 25.2 pg (27.0-34.0); MEAN CORPUSCULAR HGB CONC 31.8 g/dL (33.0-35.0); MEAN CORPUSCULAR VOLUME 79.2 fL (80.0-100.0); MEAN PLATELET VOLUME 8.5 fL (7.4-11.0); MONOCYTES # (AUTO) 1.2 x10^3/uL (0.3-0.8); MONOCYTES % (AUTO) 9.1 % (0.0-13.0); NEUTROPHILS # (AUTO) 9.5 x10^3/uL (2.2-4.8); NEUTROPHILS % (AUTO) 70.2 % (42.0-75.0); PLATELET COUNT 459 X10^3/uL (150.0-450.0); RED CELL DISTRIBUTION WIDTH 17.4 % (11.6-16.5); WHITE BLOOD COUNT 13.6 X10^3/uL (3.6-10.0)
[2024-01-27 05:29] LABS: ALANINE AMINOTRANSFERASE 21 Units/L (12-78); ALBUMIN 2.1 g/dL (3.4-5.0); ALKALINE PHOSPHATASE 99 Units/L (46-116); ASPARTATE AMINO TRANSFERASE 24 Units/L (15-37); BLOOD UREA NITROGEN 7 mg/dL (7-18); CALCIUM 8.1 mg/dL (8.5-10.1); CARBON DIOXIDE 28.8 mmol/L (21-32); CHLORIDE 105 mmol/L (98-107); COR CA(FOR HYPOALB) 9.6 mg/dL (8.5-10.1); COR NA(FOR HYPERGLY) 141 mmol/L (136-145); CREATININE 1.13 mg/dL (0.70-1.30); GLUCOSE 146 mg/dL (65-99); MAGNESIUM 1.9 mg/dL (2.0-2.9); POTASSIUM 4.1 mmol/L (3.5-5.1); SODIUM 140 mmol/L (136-145); TOTAL PROTEIN 6.7 g/dL (6.4-8.2); eGFR NON BLACK RACES > 60 (>60)
--- NOTE | 2024-01-27 08:47 | NOTE.SOAP ---
Soap Note Note for Day of Date of Exam: 01/27/24 Subjective Data Subjective Data: Patient POD2 s/p I&D, explantation of implant, implation of antibiotic spacer (DOS: 01/25/24). He is doing well this am, although still experiencing pain and burning in his ankle. He is able to move his toes. Received two units of blood yesterday, hgb increased. Denies any constitutional symptoms at this time. Objective Data Objective Data: Serosanguinous drainage from the incision site. Incision is coapted with no necrosis nor any early signs of dehiscence. Slightly macerated. Decrease in edema, no more pitting. Less warm than initial encounter. Patient able to move toes. Neurovascular status intact Assessment Assessment: 48M with septic joint of the left ankle, s/p left ankle I&D, removal of implant and implantation of antibiotic spacer (DOS: 01/25/24) Anemia Plan Plan: Patient doing well this am, he is experiencing pain and burning in his ankle, pain medication is helping. Dressing change performed with nurse assistance. Dressed with betadine adaptic, gauze, abd and posterior splint. WBC trending out. Two units of blood given yesterday. Patient will likely need multiple procedures pending results from the bone biopsies. PICC line placed, patient understands he will be on a course of IV antibiotics. Plan is to put patient in an external fixator either outpatient or while inpatient if still in house next monday with an exchange of the antibiotic cement. Patient underst ands he will likely need 2-3 procedures in order to fuse his ankle. Will follow
[2024-01-27] MEDS: BETADINE SOLN ONE (08:52)
[2024-01-27] MEDS: LOVENOX INJ 40 MG SYR SC SCH (09:31)
[2024-01-27] MEDS: ZYLOPRIM PO SCH (09:31)
[2024-01-27] MEDS: TORADOL 30 MG VIAL IVP PRN (09:32)
[2024-01-27] MEDS: MAGNESIUM SULFATE 1 GRAM/100 mL PREMIX 1 G/100 ML BAG IV SCH (11:33)
[2024-01-27] MEDS ORDERED: MAGNESIUM SULFATE 1 GRAM/100 mL PREMIX 1 G/100 ML BAG IV ONE (13:20)
[2024-01-27] MEDS ORDERED: ZESTRIL TAB 20 MG ONE (19:34)
[2024-01-27] MEDS: HYDROCHLOROTHIAZIDE 25 MG TAB PO SCH (19:40)
[2024-01-27] MEDS: ZESTRIL TAB 20 MG PO SCH (19:40)
[2024-01-27] MEDS: COREG TAB 12.5 MG PO SCH (21:22)
[2024-01-28 04:43] LABS: BASOPHILS # (AUTO) 0.1 X10^3/uL (0.0-0.1); BASOPHILS % (AUTO) 0.7 % (0.2-1.0); EOSINOPHILS # (AUTO) 0.2 x10^3/uL (0.0-0.2); EOSINOPHILS % (AUTO) 1.6 % (0.9-2.9); HEMATOCRIT 23.7 % (42.0-54.0); HEMOGLOBIN 7.6 g/dL (13.5-18.0); LYMPHOCYTES # (AUTO) 1.5 X10^3/uL (1.3-2.9); MEAN CORPUSCULAR HEMOGLOBIN 25.4 pg (27.0-34.0); MEAN CORPUSCULAR HGB CONC 32.3 g/dL (33.0-35.0); MEAN CORPUSCULAR VOLUME 78.7 fL (80.0-100.0); MEAN PLATELET VOLUME 7.9 fL (7.4-11.0); MONOCYTES # (AUTO) 1.2 x10^3/uL (0.3-0.8); MONOCYTES % (AUTO) 9.1 % (0.0-13.0); NEUTROPHILS # (AUTO) 9.8 x10^3/uL (2.2-4.8); NEUTROPHILS % (AUTO) 76.6 % (42.0-75.0); PLATELET COUNT 499 X10^3/uL (150.0-450.0); RED BLOOD COUNT 3.01 X10^6/uL (4.7-6.0); RED CELL DISTRIBUTION WIDTH 17.5 % (11.6-16.5); WHITE BLOOD COUNT 12.8 X10^3/uL (3.6-10.0)
[2024-01-28 04:51] LABS: ALANINE AMINOTRANSFERASE 19 Units/L (12-78); ALBUMIN 1.9 g/dL (3.4-5.0); ALKALINE PHOSPHATASE 91 Units/L (46-116); ASPARTATE AMINO TRANSFERASE 18 Units/L (15-37); BLOOD UREA NITROGEN 11 mg/dL (7-18); CALCIUM 8.2 mg/dL (8.5-10.1); CARBON DIOXIDE 26.9 mmol/L (21-32); CHLORIDE 104 mmol/L (98-107); COR CA(FOR HYPOALB) 9.9 mg/dL (8.5-10.1); COR NA(FOR HYPERGLY) 140 mmol/L (136-145); CREATININE 1.08 mg/dL (0.70-1.30); GLUCOSE 207 mg/dL (65-99); MAGNESIUM 2.1 mg/dL (2.0-2.9); POTASSIUM 4.1 mmol/L (3.5-5.1); SODIUM 137 mmol/L (136-145); TOTAL PROTEIN 6.5 g/dL (6.4-8.2); eGFR NON BLACK RACES > 60 (>60)
--- NOTE | 2024-01-28 07:09 | NOTE.SOAP ---
Soap Note Note for Day of Date of Exam: 01/28/24 Subjective Data Subjective Data: Patient POD3 s/p I&D, explantation of implant, implation of antibiotic spacer (DOS: 01/25/24). He is doing well this am, better spirits and significantly less pain today. Denies any constitutional symptoms at this time. Objective Data Objective Data: Dressings are c/d/i without strikethrough. Patient able to move toes. Neurovascular status intact Assessment Assessment: 48M with septic joint of the left ankle, s/p left ankle I&D, removal of implant and implantation of antibiotic spacer (DOS: 01/25/24) Anemia Plan Plan: Patient doing well this am, less pain than yesterday. Dressing c/d/i. D ressed with betadine adaptic, gauze, abd and posterior splint. WBC trending down. Patient will likely need multiple procedures pending results from the bone biopsies. PICC line in place, patient understands he will be on a course of IV antibiotics. Plan is to put patient in an external fixator either outpatient or while inpatient if still in house next monday with an exchange of the antibiotic cement. Patient understands he will likely need 2-3 procedures in order to fuse his ankle. Will follow
[2024-01-28] MEDS ORDERED: ZESTRIL TAB 20 MG ONE (07:59)
[2024-01-28] MEDS: ULORIC PO SCH (09:12)
[2024-01-28] MEDS: HYDROCHLOROTHIAZIDE 25 MG TAB PO SCH (11:09)
[2024-01-28] MEDS: ZESTRIL TAB 20 MG PO SCH (11:10)
[2024-01-28] MEDS: SINGULAIR TAB 10 MG PO SCH (11:53)
[2024-01-28] MEDS: PROTONIX TAB 40 MG PO SCH (11:53)
[2024-01-28] MEDS: GLUCOPHAGE XR 24-HR PO SCH (11:53)
[2024-01-28] MEDS: ISOSORBIDE MONONITRATE ER 24-HR PO SCH (11:53)
[2024-01-28] MEDS: COREG TAB 12.5 MG PO SCH ×2 (12:02→20:24)
[2024-01-28] MEDS ORDERED: SINEquan PO PRN (21:00)
[2024-01-29 04:54] LABS: BASOPHILS # (AUTO) 0.1 X10^3/uL (0.0-0.1); BASOPHILS % (AUTO) 1.1 % (0.2-1.0); EOSINOPHILS # (AUTO) 0.2 x10^3/uL (0.0-0.2); EOSINOPHILS % (AUTO) 1.7 % (0.9-2.9); HEMOGLOBIN 7.3 g/dL (13.5-18.0); LYMPHOCYTES # (AUTO) 2.7 X10^3/uL (1.3-2.9); MEAN CORPUSCULAR HEMOGLOBIN 25.2 pg (27.0-34.0); MEAN CORPUSCULAR HGB CONC 31.7 g/dL (33.0-35.0); MEAN CORPUSCULAR VOLUME 79.4 fL (80.0-100.0); MEAN PLATELET VOLUME 7.6 fL (7.4-11.0); MONOCYTES # (AUTO) 0.9 x10^3/uL (0.3-0.8); MONOCYTES % (AUTO) 8.4 % (0.0-13.0); NEUTROPHILS # (AUTO) 7.3 x10^3/uL (2.2-4.8); NEUTROPHILS % (AUTO) 64.8 % (42.0-75.0); PLATELET COUNT 505 X10^3/uL (150.0-450.0); WHITE BLOOD COUNT 11.3 X10^3/uL (3.6-10.0)
[2024-01-29 04:58] LABS: ALANINE AMINOTRANSFERASE 32 Units/L (12-78); ALKALINE PHOSPHATASE 82 Units/L (46-116); ASPARTATE AMINO TRANSFERASE 46 Units/L (15-37); BLOOD UREA NITROGEN 10 mg/dL (7-18); CALCIUM 8.2 mg/dL (8.5-10.1); CARBON DIOXIDE 26.1 mmol/L (21-32); CHLORIDE 107 mmol/L (98-107); COR CA(FOR HYPOALB) 9.8 mg/dL (8.5-10.1); COR NA(FOR HYPERGLY) 143 mmol/L (136-145); CREATININE 1.15 mg/dL (0.70-1.30); GLUCOSE 139 mg/dL (65-99); POTASSIUM 3.9 mmol/L (3.5-5.1); SODIUM 142 mmol/L (136-145); TOTAL PROTEIN 6.6 g/dL (6.4-8.2); eGFR NON BLACK RACES > 60 (>60)
[2024-01-29] MEDS ORDERED: ZESTRIL TAB 20 MG ONE (07:53)
[2024-01-29] MEDS ORDERED: LEXAPRO PO SCH (09:00)
[2024-01-29] MEDS: PROCRIT or EPOGEN VIAL 10,000 UNITS SC ONE (11:03)
[2024-01-29] MEDS: LOVENOX INJ 40 MG SYR SC SCH (11:03)
[2024-01-29] MEDS: NAFCILLIN SODIUM 2 G in NS 100 ML IV 100 ML IV SCH (11:19)
--- NOTE | 2024-01-29 16:12 | NOTE.SOAP ---
Soap Note Note for Day of Date of Exam: 01/29/24 Subjective Data Subjective Data: Patient POD4 s/p I&D, explantation of implant, implation of antibiotic spacer (DOS: 01/25/24). He is doing well this am, although still experiencing pain and burning in his ankle. Denies any constitutional symptoms at this time. Objective Data Objective Data: Serosanguinous drainage from the incision site. Incision is coapted with no necrosis nor any early signs of dehiscence. Macerated and draining from the center. Decrease in edema, no more pitting. Less warm than initial encounter. Patient able to move toes. Neurovascular status intact Assessment Assessment: 48M with septic joint of the left ankle, s/p left ankle I&D, removal of implant and implantation of antibiotic spacer (DOS: 01/25/24) Anemia Plan Plan: Patient doing well this am, he is experiencing pain and burning in his ankle, pain medication is helping. Dressing change performed with nurse assistance. Two sutures popped to allow for drainage. Dressed with betadine adaptic, gauze, abd, posterior splint and a sugar tongue. WBC trending out. PICC line placed, patient understands he will be on a course of IV antibiotics. Plan is to discharge patient when okay per medicine
[2024-01-29] MEDS: PHARMACY CONSULT - LOVENOX XX SCH (19:07)
[2024-01-29] MEDS: NS 100 ML IV 100 ML ONE (19:07)
[2024-01-30 00:21] VITALS: O2SAT 98
[2024-01-30 04:52] LABS: BASOPHILS # (AUTO) 0.1 X10^3/uL (0.0-0.1); BASOPHILS % (AUTO) 0.7 % (0.2-1.0); EOSINOPHILS % (AUTO) 0.1 % (0.9-2.9); HEMATOCRIT 26.9 % (42.0-54.0); HEMOGLOBIN 8.5 g/dL (13.5-18.0); LYMPHOCYTES # (AUTO) 2.4 X10^3/uL (1.3-2.9); LYMPHOCYTES % (AUTO) 15.4 % (21.0-51.0); MEAN CORPUSCULAR HGB CONC 31.7 g/dL (33.0-35.0); MEAN CORPUSCULAR VOLUME 78.9 fL (80.0-100.0); MEAN PLATELET VOLUME 7.2 fL (7.4-11.0); MONOCYTES # (AUTO) 1.3 x10^3/uL (0.3-0.8); MONOCYTES % (AUTO) 8.2 % (0.0-13.0); NEUTROPHILS # (AUTO) 11.6 x10^3/uL (2.2-4.8); NEUTROPHILS % (AUTO) 75.6 % (42.0-75.0); PLATELET COUNT 610 X10^3/uL (150.0-450.0); RED BLOOD COUNT 3.41 X10^6/uL (4.7-6.0); RED CELL DISTRIBUTION WIDTH 17.9 % (11.6-16.5); WHITE BLOOD COUNT 15.4 X10^3/uL (3.6-10.0)
[2024-01-30 04:53] LABS: BLOOD UREA NITROGEN 10 mg/dL (7-18); CALCIUM 8.7 mg/dL (8.5-10.1); CARBON DIOXIDE 25.1 mmol/L (21-32); CHLORIDE 104 mmol/L (98-107); CREATININE 1.12 mg/dL (0.70-1.30); GLUCOSE 104 mg/dL (65-99); POTASSIUM 4.1 mmol/L (3.5-5.1); SODIUM 141 mmol/L (136-145); eGFR NON BLACK RACES > 60 (>60)
[2024-01-30 05:13] LABS: ALANINE AMINOTRANSFERASE 37 Units/L (12-78); ALBUMIN 2.2 g/dL (3.4-5.0); ALKALINE PHOSPHATASE 91 Units/L (46-116); ASPARTATE AMINO TRANSFERASE 33 Units/L (15-37); COR CA(FOR HYPOALB) 10.1 mg/dL (8.5-10.1); TOTAL PROTEIN 7.7 g/dL (6.4-8.2)
[2024-01-30 05:30] LABS: HYPOCHROMASIA SLIGHT; PLATELET MORPHOLOGY COMMENT NORMAL (NORMAL)
[2024-01-30 05:31] LABS: ANISOCYTOSIS SLIGHT; MICROCYTOSIS SLIGHT; TARGET CELLS PRESENT
[2024-01-30 05:41] VITALS: RESP 21
--- NOTE | 2024-01-30 07:51 | NOTE.SOAP ---
Soap Note Note for Day of Date of Exam: 01/28/24 Subjective Data Subjective Data: Patient POD5 s/p I&D, explantation of implant, implation of antibiotic spacer (DOS: 01/25/24). He is doing well this am, better spirits and significantly less pain today. Denies any constitutional symptoms at this time. Objective Data Objective Data: Dressings are c/d/i without strikethrough. Patient able to move toes. Neurovascular status intact Assessment Assessment: 48M with septic joint of the left ankle, s/p left ankle I&D, removal of implant and implantation of antibiotic spacer (DOS: 01/25/24) Anemia Plan Plan: Patient doing well this am, less pain than yesterday. Dressing c/d/i. D ressed with betadine adaptic, gauze, abd and posterior splint. WBC trending down. Patient will likely need multiple procedures pending results from the bone biopsies. PICC line in place, patient understands he will be on a course of IV antibiotics. Plan is to discharge patietn on IV antibiotics and plan to take patient to the operating room on an outpatient basis.
[2024-01-30 07:54] VITALS: BP 148/94; PULSE 78; TEMP 98.3
[2024-01-30] MEDS: ZESTRIL TAB 20 MG PO SCH (09:48)
[2024-01-30] MEDS: NOZIN NASAL SANITIZER TP SCH (09:49)
[2024-01-30] MEDS: LEXAPRO PO SCH (09:56)
[2024-01-30] MEDS: CIPRO IV 400 MG PREMIX* 400 MG/200 ML IV.SOLN. IV SCH (09:57)
[2024-01-30] MEDS: ZESTRIL TAB 20 MG ONE ×2 (11:56→11:57)
[2024-01-30] MEDS: LEXAPRO ONE (11:57)
== END 2024-01-30 12:15 | disposition home or self-care (01) | DRG 580 ==
LOC: ER 21:02 → ICU 01-24 00:07
PROVIDERS: ADMIT Internal Medicine; ATTEND Obstetrics & Gynecology Obstetrics
PROC: HARDREM (ICD-10-PCS; 2024-01-25 13:10)

== ENCOUNTER 2025-05-12 20:44 | Inpatient (IN) ==
--- NOTE | 2025-05-12 20:52 | EKG ---
Test Reason : CHEST PAIN Blood Pressure : */* mmHG Vent. 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
[2025-05-12 21:24] LABS: BLOOD/HEMOGLOBIN,URINE NEGATIVE (NEGATIVE); LEUKOCYTE ESTERASE ,URINE 1+ (NEGATIVE); NITRITES,URINE POSITIVE (NEGATIVE)
[2025-05-12 21:26] LABS: APPEARANCE,URINE CLEAR (CLEAR)
[2025-05-12 21:33] LABS: SQUAMOUS EPITHELIAL CELL,UR RARE /HPF (NEGATIVE)
[2025-05-12 21:43] LABS: MEAN PLATELET VOLUME 8.0 fL (7.4-11.0); RED CELL DISTRIBUTION WIDTH 17.4 % (11.6-16.5)
[2025-05-12 21:48] LABS: INR 1.04 (0.8-1.3)
[2025-05-12 21:56] LABS: COR NA(FOR HYPERGLY) 140 mmol/L (136-145); CREATININE 1.38 mg/dL (0.70-1.30); eGFR NON BLACK RACES 58 (>60)
[2025-05-12] MEDS: ROCEPHIN VIAL 1 GRAM IVP ONE (22:26)
[2025-05-12] MEDS: NS 1,000 ML IV 1,000 ML IV ONE ×2 (22:27→23:25)
[2025-05-12] MEDS: MAXIPIME VIAL 1 GRAM 1 G in NS 50 ML IV 50 ML IV ONE (23:25)
--- NOTE | 2025-05-12 23:33 | CT ---
EXAM: CHEST W/O CON HISTORY: CHEST AND ABD PAIN, H/O COLON CANCER; COMPARISON: CT of the chest with contrast March 14, 2025 TECHNIQUE: CT of the chest without contrast FINDINGS: Sensitivity is reduced without intravenous contrast. The AP dimension of the ascending aorta is 3.9 cm, prominent. Heart is enlarged. No mediastinal lymphadenopathy. Limited visualization of the upper abdomen demonstrates no acute process. Pacemaker with power pack on the left. The lungs are well inflated and clear. 4 mm right inter fissural lymph node is unchanged. No suspicious bony lesion. IMPRESSION: Nothing acute. All CT scans at this facility use dose modulation, iterative reconstruction, and/or weight based dosing when appropriate to reduce radiation dose to as low as reasonably achievable. THIS IS AN ELECTRONICALLY VERIFIED FINAL REPORT 05/12/2025 11:29 PM - Electronically signed by Wilbert Pacheco MD
--- NOTE | 2025-05-12 23:36 | DR.CP ---
HPI Time Seen Time Seen by Provider: 05/12/25 21:18 PCP Primary Care Physician: JESSI CLARK HPI Comment HPI Comment: Patient with complaint of chest pain at his port site. Patient does have a history of stage IV colon cancer with chemo pump on his port. Patient also complains of abdominal pain poorly localized but mostly towards his right upper quadrant. Patient denies fever. Complaint Chief Complaint:: PATIENT C/O CHEST PAIN AT PORT SITE TO RCW AND LT CHEST WALL PACE/DEF PLACE. PATIENT ALSO C/O UPPER QUAD PAIN. NOTED PATIENTS ABD OT BE DISTENED. PATIENT HAS A HISTORY STAGE 4 COLON CA. COVID-19 Coronavirus risk:travel/contact w/high risk person: No Has patient experienced Coronavirus symptoms: No Source History Provided: Patient and EMS Mode of Arrival Mode of Arrival: EMS Timing Onset of Chief Complaint: 05/12/25 PMH PMH Past Medical History: Yes Past Medical History: Anemia, Arthritis, Coronary Artery Disease, Depression, Diabetes, Gout, Hypertension, [place], Sleep Apnea and Cancer Past Medical History Comment: COLON CA Past Surgical History: Yes Surgical History: Abdominal Surgery and Other Past Surgical History Comment: PAC, PACE/ DEF Family History History of Family Medical Conditions: Yes Family Medical History: Diabetes Mellitus, Cancer, [place] and Hypertension Social History Does any household member use tobacco: No Alcohol Use: None Do you use any recreational Drugs:: No Lives With: Family Lives Where: Home Travel Risk Coronavirus risk:travel/contact w/high risk person: No Has patient experienced Coronavirus symptoms: No Infectious screening In the last 2 months have you had wt loss of >10#?: NO Have you had fever, night sweats or hemotysis?: No Have you traveled outside the country in the last 6 months?: No Isolation: Standard ROS Review of Systems Constitutional: No Symptoms Reported; negative Fever Eyes: No Symptoms Reported ENTM: No Symptoms Reported Respiratoy: No Symptoms Reported Cardiovascular: No Symptoms Reported and Chest Pain; negative Edema, Palpitations or Syncope Gastrointestinal/Abdominal: No Symptoms Reported and Abdominal Pain; negative Constipation, Diarrhea, Nausea or Vomiting Genitourinary: No Symptoms Reported Neurological: No Symptoms Reported Musculoskeletal: No Symptoms Reported Integumentary: No Symptoms Reported Hematologic/Lymphatic: No Symptoms Reported Endocrine: No Symptoms Reported Psychiatric: No Symptoms Reported All Other Systems: Reviewed and Negative PE Vitals Vitals: Vital Signs Pulse Rate 91 Pulse Rate 84 Pulse Rate 88 Pulse Rate 87 Pulse Rate 90 Pulse Rate 93 Pulse Rate 175 Pulse Rate 97 Pulse Rate 89 Pulse Rate 94 Pulse Rate 92 Pulse Rate 89 Pulse Rate 90 Pulse Rate 91 Pulse Rate 91 Respiratory Rate 26 Respiratory Rate 23 Respiratory Rate 17 Blood Pressure 157/102 Blood Pressure 153/93 Blood Pressure 150/95 Blood Pressure 147/94 Blood Pressure 139/75 Blood Pressure 146/69 Blood Pressure 138/90 O2 Sat by Pulse Oximetry 95 O2 Sat by Pulse Oximetry 97 O2 Sat by Pulse Oximetry 97 O2 Sat by Pulse Oximetry 98 General Limitations: No Limitations General Appearance: Alert and In No Apparent Distress Head Head Exam: Normal Inspection Eyes Eye exam: Normal Appearance ENT ENT Exam: Normal Exam Chest Chest Inspection: Normal Inspection Respiratory Respiratory Exam: Normal Lung Sounds Bilat Cardiovascular Cardiovascular Exam: Regular Rate and Normal Rhythm Pulse: Normal Edema: Normal Abdominal Exam Abdominal Exam: Normal Inspection, Normal Bowel Sounds and Soft; negative Distention, Tenderness, Guarding, Rebound or Rigidity Extremities Extremities Exam: Normal Inspection Back Back Exam: Normal Inspection Neurologic Neurological Exam: Alert and Oriented X3 Psychiatric Psychiatric Exam: Normal Affect and Normal Mood Skin Skin Exam: Warm, Dry, Intact and Normal Color COURSE Treatment Treatment: Discussed results of workup with patient. Patient is septic and improving on antibiotic and fluids. Consultation Called: 01:00 Consultation Comments: Discussed case with Dr. Marquez and she is agreeable to admission. Discussed case with oncology nurse and she is agreeable to remove port axis and stop chemo pump for now due to sepsis ROR Labs Reviewed Laboratory Results Reviewed?: Yes 05/12/25 21:31 05/12/25 21:31 Laboratory: WBC 3.8 X10^3/uL (3.6-10.0) 05/12/25 21:31 RBC 3.91 X10^6/uL (4.7-6.0) L 05/12/25 21:31 Hgb 10.9 g/dL (13.5-18.0) L 05/12/25 21:31 Hct 33.4 % (42.0-54.0) L 05/12/25 21:31 MCV 85.4 fL (80.0-100.0) 05/12/25 21: MCH 27.9 pg (27.0-34.0) 05/12/25 21: MCHC 32.7 g/dL (33.0-35.0) L 05/12/25 21: RDW 17.4 % (11.6-16.5) H 05/12/25 21: Plt Count 266 X10^3/uL (150.0-450.0) 05/12/25 21: MPV 8.0 fL (7.4-11.0) 05/12/25 21: Neut % (Auto) 80.7 % (42.0-75.0) H 05/12/25 21: Lymph % (Auto) 17.4 % (21.0-51.0) L 05/12/25 21: [place] % (Auto) 1.4 % (0.0-13.0) 05/12/25: Eos % (Auto) 0.0 % (0.9-2.9) L 05/12/25 21: Baso % (Auto) 0.5 % (0.2-1.0) 05/12/25: Neut # (Auto) 3.0 x10^3/uL (2.2-4.8) 05/12/25 21: Lymph # (Auto) 0.7 X10^3/uL (1.3-2.9) L 05/12/25 21: [place] # (Auto) 0.1 x10^3/uL (0.3-0.8) L 05/12/25 21: Eos # (Auto) 0.0 x10^3/uL (0.0-0.2) 05/12/25: Baso # (Auto) 0.0 X10^3/uL (0.0-0.1) 05/12/25 21: Absolute Nucleated RBC 0.1 /100WBC 05/12/25: PT 13.7 SECONDS (11.8-14.3) 05/12/25: INR Target Range - 05/12/25: INR 1.04 (0.8-1.3) 05/12/25 21: APTT 28.5 SECONDS (22.9-36.5) 05/12/25 21: PTT Comment - 05/12/25 21: Sodium 138 mmol/L (136-145) 07/14/25 21:31 Corrected Sodium 140 mmol/L (136-145) 05/12/25 21:31 Potassium 4.1 mmol/L (3.5-5.1) 05/12/25 21:31 Chloride 102 mmol/L (98-107) 05/12/25 21:31 Carbon Dioxide 22.0 mmol/L (21-32) 05/12/25 21:31 BUN 11 mg/dL (7-18) 05/12/25 21:31 Creatinine 1.38 mg/dL (0.70-1.30) H 05/12/25 21:31 Est GFR (MDRD) Af Amer > 60 (>60) 05/12/25 21:31 Est GFR (MDRD) Non-Af 58 (>60) L 05/12/25 21:31 Glucose 194 mg/dL (65-99) H 05/12/25 21:31 Lactic Acid 5.4 mmol/L (0.4-2.0) H* 05/12/25 23:00 Calcium 8.9 mg/dL (8.5-10.1) 05/12/25 21:31 Corrected Calcium TNP 05/12/25 21:31 Total Bilirubin 0.30 mg/dL (0.2-1.0) 05/12/25 21:31 AST 22 Units/L (15-37) 05/12/25 21:31 ALT 21 Units/L (12-78) 05/12/25 21:31 Alkaline Phosphatase 137 Units/L (46-116) H 05/12/25 21:31 Ammonia < 10 umol/L (11-32) L 05/12/25 22:45 Creatine Kinase 80 Units/L (39-308) 05/12/25 21:31 Troponin I High Sens 24.2 ng/L (4.0-60.0) 05/12/25 21:31 Total Protein 10.0 g/dL (6.4-8.2) H 05/12/25 21:31 Albumin 4.0 g/dL (3.4-5.0) 05/12/25 21:31 Globulin 6.0 g/dL (2.5-4.5) H 05/12/25 21:31 Albumin/Globulin Ratio 0.7 Ratio (1.1-2.1) L 05/12/25 21:31 Specimen Type Clean catch urine 05/12/25 21:17 Urine Color Straw (YELLOW) 05/12/25 21:17 Urine Appearance Clear (CLEAR) 05/12/25 21:17 Urine pH 6.0 (5.0 - 8.0) 05/12/25 21:17 Ur Specific [place] 1.015 (1.000-1.030) 05/12/25 21:17 Urine Protein 1+ (NEGATIVE) 05/12/25 21:17 Urine Glucose (UA) Negative (NEGATIVE) 05/12/25 21:17 Urine Ketones Negative (NEGATIVE) 05/12/25 21:17 Urine Blood Negative (NEGATIVE) 05/12/25 21:17 Urine Nitrite Positive (NEGATIVE) 05/12/25 21:17 Urine Bilirubin Negative (NEGATIVE) 05/12/25 21:17 Urine Urobilinogen Normal (NORMAL) 05/12/25 21:17 Ur Leukocyte Esterase 1+ (NEGATIVE) 05/12/25 21:17 Urine RBC None seen /HPF (0-3) 05/12/25 21:17 Urine WBC 10-20 /HPF (0-5) A 05/12/25 21:17 Ur Squamous Epith Cells Rare /HPF (NEGATIVE) 05/12/25 21:17 Urine Bacteria 1+ /HPF (NEGATIVE) 05/12/25 21:17 Ur Culture Indicated? Yes/culture set up 05/12/25 21:17 Other Results Comments: Name: [facility] : 1975 Sex: M Location: Order Number(s): [id number] Procedure(s):CHEST CT W/O CON Ordering Physician: Philip Malave Primary Care: NFD,None Service Date: 05/12/25 Service Time: 2053 EXAM: CHEST W/O CON HISTORY: CHEST AND ABD PAIN, H/O COLON CANCER; COMPARISON: CT of the chest with contrast March 14, 2025 TECHNIQUE: CT of the chest without contrast FINDINGS: Sensitivity is reduced without intravenous contrast. The AP dimension of the ascending aorta is 3.9 cm, prominent. Heart is enlarged. No mediastinal lymphadenopathy. Limited visualization of the upper abdomen demonstrates no acute process. Pacemaker with power pack on the left. The lungs are well inflated and clear. 4 mm right inter fissural lymph node is unchanged. No suspicious bony lesion. IMPRESSION: Nothing acute. All CT scans at this facility use dose modulation, iterative reconstruction, and/or weight based dosing when appropriate to reduce radiation dose to as low as reasonably achievable. THIS IS AN ELECTRONICALLY VERIFIED FINAL REPORT 05/12/2025 11:29 PM - Electronically signed by Wilbert Pacheco MD Name: ALF FREDERICK : 1975 Sex: M Location: ER Order Number(s): [id number] Procedure(s):CT ABDOMEN/PELVIS W/O CON Ordering Physician: Philip Malave Primary Care: NFD,None Service Date: 05/12/25 Service Time: 2053 PROCEDURE: CT Abdomen and Pelvis without IV Contrast. HISTORY: Upper quadrant abdomen pain and history of colon cancer. TECHNIQUE: Axial images were performed through the abdomen and pelvis without the administration of IV contrast with multiplanar reformations . Oral contrast was notadministered . Dose reduction techniques including Automated Exposure Control (AEC) and adjustment of mA and kV were utilized .. COMPARISON: 03/14/2025. TECHNICAL QUALITY: Satisfactory. FINDINGS: Clear lung bases. Heart size upper limits of normal. Liver, spleen, adrenals, and pancreas show no significant abnormality. Kidneys show no stones or obstruction. Previous cholecystectomy. No ascites or pneumoperitoneum. Normal aorta. No lymphadenopathy. Unchanged 9 cm periumbilical omental hernia. No bowel obstruction or inflammation. Previous appendectomy with surgical clips adjacent to the cecum. Pelvis shows no masses or free fluid normal urinary bladder. No acute bony abnormality . IMPRESSION: 1. Unchanged periumbilical omental hernia. 2. No other significant abnormality involving abdomen or pelvis. 3. Unchanged heart size upper limits of normal. Opioid Opioid Risk Tool Age (Charbel box if 16-45): No History of Preadolescent Sexual Abuse: No Total: 0 Total Score Risk Category: Low Risk Copyright: Ronald DELCID predicting aberrant behaviors Discharge Plan Diagnosis Discharge Problem: Sepsis, Acute UTI, Colon cancer metastasized to multiple sites Discharge Plan Patient Disposition: 09 ADMITTED INPATIENT Condition: Stable Prescriptions: No Action nitroglycerin 0.4 mg Tablet, Sublingual 0.4 mg SUBLINGUAL Q5M PRN Rx Instructions: do not exceed 3 doses per episode anastrozole 1 mg tablet 1 mg PO QDAY metoprolol succinate 50 mg tablet extended release 24 hr 50 mg PO QDAY lisinopril 20 mg tablet 20 mg PO QDAY olanzapine 5 mg tablet 5 mg PO QPM clonazepam 1 mg tablet 1 mg PO TID PRN pioglitazone 45 mg tablet 45 mg PO QDAY aspirin 81 mg tablet,delayed release (DR/EC) 81 mg PO QDAY isosorbide mononitrate 60 mg tablet extended release 24 hr 60 mg PO QDAY pantoprazole 40 mg tablet,delayed release (DR/EC) 40 mg PO QDAY promethazine 25 mg tablet 25 mg PO Q6H PRN gabapentin 300 mg capsule 300 mg PO BID montelukast 10 mg tablet 10 mg PO QDAY hydrochlorothiazide 25 mg tablet 25 mg PO QDAY mirtazapine 15 mg tablet 15 mg PO QPM fentanyl 25 mcg/hr patch 72 hour 1 patch Q3D ondansetron 4 mg tablet,disintegrating 4 mg PO Q8H PRN metformin 500 mg tablet extended release 24 hr 1,000 mg PO BID escitalopram oxalate 20 mg tablet 20 mg PO QDAY rosuvastatin 20 mg tablet 20 mg PO QPM duloxetine 30 mg capsule,delayed release(DR/EC) 30 mg PO QDAY oxycodone 20 mg tablet 20 mg PO Q4H PRN febuxostat 80 mg tablet 80 mg PO QDAY Health Concerns: Post Hospitalization: new medications and changes needed to prevent readmission or further decline. Pt educated and given instructions on all concerns. Plan of Treatment: Continue with present treatment and follow up plan. Pt is to keep follow up appointment as instructed and take medications as ordered. Orders to Discharge Patient Discharge Orders: Transfer (Routine); Ordered 05/13/25 Ordered By: Philip Malave Follow ups/Referrals Follow ups/Referrals: NFD,None [STAFF PHYSICIAN] - 3 days Instructions Stand Alone Forms: Find Help Web Site, Post Hospital Follow Up Care Print Language: SWEDISH
[2025-05-13] MEDS: ZOFRAN INJ 4 MG VIAL IVP ONE (01:11)
[2025-05-13] MEDS: DILAUDID INJ IVP ONE (01:11)
[2025-05-13] MEDS ORDERED: NORCO 5/325 MG TAB PO PRN (02:15)
[2025-05-13] MEDS ORDERED: ZOFRAN ODT PO PRN (02:15)
[2025-05-13] MEDS ORDERED: TYLENOL 325 MG TAB PO PRN (02:15)
[2025-05-13] MEDS ORDERED: NITROSTAT SL PRN (02:15)
[2025-05-13] MEDS ORDERED: NovoLIN R (or HumuLIN R) SUBCUT PRN (02:15)
[2025-05-13] MEDS: NS 1,000 ML IV 1,000 ML IV SCH (02:48)
[2025-05-13] MEDS: ASCORBIC ACID INJ MULTI-DOSE VIAL 1,500 MG in NS 50 ML IV 50 ML IV SCH (02:49)
[2025-05-13] MEDS: ULTRAM PO PRN (02:56)
[2025-05-13 04:19] VITALS: BMI 50.8
[2025-05-13] MEDS: MAXIPIME VIAL 1 GRAM 1 G in NS 50 ML IV 50 ML IV SCH (05:37)
[2025-05-13] MEDS: DILAUDID INJ IVP PRN ×2 (05:38→09:56)
[2025-05-13] MEDS: VANCOMYCIN IV *PREMIX 2 G/400 ML BAG 2 G/400 ML PIGGYBACK IV SCH (06:12)
[2025-05-13 06:53] LABS: MEAN PLATELET VOLUME 8.3 fL (7.4-11.0); RED CELL DISTRIBUTION WIDTH 17.2 % (11.6-16.5)
[2025-05-13 07:01] LABS: COR NA(FOR HYPERGLY) 141 mmol/L (136-145); CREATININE 1.37 mg/dL (0.70-1.30); eGFR NON BLACK RACES 58 (>60)
[2025-05-13] MEDS: NS 1,000 ML IV 1,000 ML ONE (07:58)
[2025-05-13] MEDS: ROCEPHIN VIAL 1 GRAM ONE (07:59)
[2025-05-13] MEDS: DILAUDID INJ ONE (07:59)
[2025-05-13] MEDS: ZOFRAN INJ 4 MG VIAL ONE (08:00)
[2025-05-13] MEDS ORDERED: ZESTRIL TAB 20 MG ONE (08:10)
[2025-05-13] MEDS: THIAMINE HCL INJ IVP SCH (08:22)
[2025-05-13] MEDS: HYDROCHLOROTHIAZIDE 25 MG TAB PO SCH (08:22)
[2025-05-13] MEDS: ZESTRIL TAB 20 MG PO SCH (08:23)
[2025-05-13] MEDS: TOPROL XL PO SCH (08:24)
[2025-05-13] MEDS: ASPIRIN EC 81 MG PO SCH (08:24)
[2025-05-13] MEDS: NEURONTIN CAP 300 MG PO SCH (08:25)
--- NOTE | 2025-05-13 08:43 | DR.H&P ---
H&P History & Physical for Day of: H&P Date: 05/13/25 Chief Complaint Chief Complaint: CHEST PAIN AT PORT A CATH History of Present Illness History of Present Illness: Patient with complaint of chest pain at his port site. Patient does have a history of stage IV colon cancer with chemo pump on his port. Patient also complains of abdominal pain poorly localized but mostly towards his right upper quadrant. Patient denies fever. Past Medical History Past Medical History: Anemia, Arthritis, Coronary Artery Disease, Depression, Diabetes, Gout, Hypertension, [place], Sleep Apnea and Cancer Past Surgical History Surgical History: Abdominal Surgery, Angioplasty/Stents and Ortho Surgery Family History Family Medical History: Diabetes Mellitus, Cancer and Hypertension Social History Does patient currently use any type of tobacco product: No Type of Tobacco Use: None Does any household member use tobacco: Yes Alcohol Use: DAILY Drug Use: None Medications Home Medications: Home Medications Medication Instructions Recorded Confirmed Type nitroglycerin 0.4 mg sublingual 0.4 mg sublingual Q5M PRN 07/13/23 05/12/25 History tablet anastrozole 1 mg tablet 1 mg PO QDAY 05/12/25 History aspirin 81 mg tablet,delayed 81 mg PO QDAY 05/12/25 History release clonazepam 1 mg tablet 1 mg PO TID PRN 05/12/25 History duloxetine 30 mg capsule,delayed 30 mg PO QDAY 5 05/12/25 History release escitalopram oxalate 20 mg tablet 20 mg PO QDAY 05/12/25 History febuxostat 80 mg tablet 80 mg PO QDAY 05/12/2505/12 History fentanyl 25 mcg/hr transdermal 1 patch Q3D 05/12/25 History patch gabapentin 300 mg capsule 300 mg PO BID 05/12/2505/12 History hydrochlorothiazide 25 mg tablet 25 mg PO QDAY 05/12/25 History isosorbide mononitrate 60 mg 60 mg PO QDAY 05/12/25 History tablet,extended release 24 hr lisinopril 20 mg tablet 20 mg PO QDAY 05/12/2505/12 History metformin 500 mg tablet,extended 1,000 mg PO BID 05/1205/12/25 History release 24 hr metoprolol succinate 50 mg 50 mg PO QDAY 05/12/2504/29 History tablet,extended release 24 hr mirtazapine 15 mg tablet 15 mg PO QPM 05/12/25 History montelukast 10 mg tablet 10 mg PO QDAY 05/12/2505/12 History olanzapine 5 mg tablet 5 mg PO QPM 05/12/25 5 History ondansetron 4 mg disintegrating 4 mg PO Q8H PRN 05/12/25 History tablet oxycodone 20 mg tablet 20 mg PO Q4H PRN 05/12/25 History pantoprazole 40 mg tablet,delayed 40 mg PO QDAY 05/12/25 History release pioglitazone 45 mg tablet 45 mg PO QDAY 05/12/2505/12 History promethazine 25 mg tablet 25 mg PO Q6H PRN 05/12/25 History rosuvastatin 20 mg tablet 20 mg PO QPM 05/12/25 History Allergies Allergies Allergy/AdvReac Type Severity Reaction Status Date / Time Penicillins Allergy Verified 05/12/25 22:08 Labs 05/13/25 06:25 05/13/25 06:25 Labs: Laboratory WBC 3.6 X10^3/uL (3.6-10.0) 05/13/25 06: RBC 3.79 X10^6/uL (4.7-6.0) L 05/13/25 06:25 Hgb 10.4 g/dL (13.5-18.0) L 05/13/25 06:25 Hct 32.6 % (42.0-54.0) L 05/13/25 06:25 MCV 86.0 fL (80.0-100.0) 05/13/25 06:25 MCH 27.5 pg (27.0-34.0) 05/13/25 06: MCHC 31.9 g/dL (33.0-35.0) L 05/13/25 06:25 RDW 17.2 % (11.6-16.5) H 05/13/25 06:25 Plt Count 224 X10^3/uL (150.0-450.0) 05/13/25 06:25 MPV 8.3 fL (7.4-11.0) 05/13/25 06: Neut % (Auto) 77.7 % (42.0-75.0) H 05/13/25 06:25 Lymph % (Auto) 15.4 % (21.0-51.0) L 05/13/25 06:25 [place] % (Auto) 6.9 % (0.0-13.0) 05/13/25 06:25 Eos % (Auto) 0.0 % (0.9-2.9) L 05/13/25 06:25 Baso % (Auto) 0 % (0.2-1.0) L 05/13/25:25 Neut # (Auto) 2.8 x10^3/uL (2.2-4.8) 05/13/25 06:25 Lymph # (Auto) 0.6 X10^3/uL (1.3-2.9) L 05/13/25 06:25 [place] # (Auto) 0.2 x10^3/uL (0.3-0.8) L 05/13/25 06:25 Eos # (Auto) 0.0 x10^3/uL (0.0-0.2) 05/13/25: Baso # (Auto) 0.0 X10^3/uL (0.0-0.1) 05/13/25 06:25 Absolute Nucleated RBC 0.1 /100WBC 05/13/25: PT 13.7 SECONDS (11.8-14.3) 05/12/25 21:31 INR Target Range - 05/12/25 21: INR 1.04 (0.8-1.3) 05/12/25 21: APTT 28.5 SECONDS (22.9-36.5) 05/12/25 21: PTT Comment - 05/12/25 21: Sodium 139 mmol/L (136-145) 05/13/25 06:25 Corrected Sodium 141 mmol/L (136-145) 05/13/25 06:25 Potassium 4.2 mmol/L (3.5-5.1) 05/13/25 06: Chloride 104 mmol/L (98-107) 05/13/25 06:25 Carbon Dioxide 26.5 mmol/L (21-32) 05/13/25 06:25 BUN 10 mg/dL (7-18) 05/13/25 06:25 Creatinine 1.37 mg/dL (0.70-1.30) H 05/13/25 06:25 Est GFR (MDRD) Af Amer > 60 (>60) 05/13/25 06:25 Est GFR (MDRD) Non-Af 58 (>60) L 05/13/25 06:25 Glucose 189 mg/dL (65-99) H 05/13/25 06:25 POC Glucose (mg/dL) 174 mg/dL (65-99) H 05/13/25 07:06 Lactic Acid 2.9 mmol/L (0.4-2.0) H 05/13/25 06:25 Calcium 8.5 mg/dL (8.5-10.1) 05/13/25 06:25 Corrected Calcium TNP 05/12/25 21:31 Total Bilirubin 0.30 mg/dL (0.2-1.0) 05/13/25 06:25 AST 22 Units/L (15-37) 05/12/25 21:31 ALT 21 Units/L (12-78) 05/12/25 21:31 Alkaline Phosphatase 137 Units/L (46-116) H 05/12/25 21:31 Ammonia < 10 umol/L (11-32) L 05/12/25 22:45 Creatine Kinase 80 Units/L (39-308) 05/12/25 21:31 Troponin I High Sens 24.2 ng/L (4.0-60.0) 05/12/25 21:31 Total Protein 10.0 g/dL (6.4-8.2) H 05/12/25 21:31 Albumin 4.0 g/dL (3.4-5.0) 05/12/25 21:31 Globulin 6.0 g/dL (2.5-4.5) H 05/12/25 21:31 Albumin/Globulin Ratio 0.7 Ratio (1.1-2.1) L 05/12/25 21:31 Specimen Type Clean catch urine 05/12/25 21:17 Urine Color Straw (YELLOW) 05/12/25 21:17 Urine Appearance Clear (CLEAR) 05/12/25 21:17 Urine pH 6.0 (5.0 - 8.0) 05/12/25 21:17 Ur Specific [place] 1.015 (1.000-1.030) 05/12/25 21:17 Urine Protein 1+ (NEGATIVE) 05/12/25 21:17 Urine Glucose (UA) Negative (NEGATIVE) 05/12/25 21:17 Urine Ketones Negative (NEGATIVE) 05/12/25 21:17 Urine Blood Negative (NEGATIVE) 05/12/25 21:17 Urine Nitrite Positive (NEGATIVE) 05/12/25 21:17 Urine Bilirubin Negative (NEGATIVE) 05/12/25 21:17 Urine Urobilinogen Normal (NORMAL) 05/12/25 21:17 Ur Leukocyte Esterase 1+ (NEGATIVE) 05/12/25 21:17 Urine RBC None seen /HPF (0-3) 05/12/25 21:17 Urine WBC 10-20 /HPF (0-5) A 05/12/25 21:17 Ur Squamous Epith Cells Rare /HPF (NEGATIVE) 05/12/25 21:17 Urine Bacteria 1+ /HPF (NEGATIVE) 05/12/25 21:17 Ur Culture Indicated? Yes/culture set up 05/12/25 21:17 Review of Systems Constitutional: Chills and Weakness Eyes: No Symptoms Reported ENT: No Symptoms Reported Respiratory: Shortness of Breath Cardiovascular: Chest Pain (RIGHT SIDE) Gastrointestinal: Abdominal Pain Genitourinary: No Symptoms Reported Musculoskeletal: Back Pain Skin: No Symptoms Reported Neurological: No Symptoms Reported Physical Exam Vital Signs: Vital Signs Temperature 97.5 F Temperature 97.5 F Pulse Rate [Brachial] 81 Pulse Rate [Brachial] 88 Pulse Rate [Brachial] 83 Pulse Rate [Brachial] 84 Pulse Rate [Brachial] 88 Pulse Rate 94 Pulse Rate 98 Pulse Rate 97 Pulse Rate 93 Pulse Rate 91 Pulse Rate 88 Pulse Rate 94 Respiratory Rate 20 Respiratory Rate 20 Respiratory Rate 18 Respiratory Rate 20 Respiratory Rate 18 Respiratory Rate 20 Respiratory Rate 18 Respiratory Rate 20 Respiratory Rate 19 Respiratory Rate 18 Respiratory Rate 13 Respiratory Rate 18 Respiratory Rate 18 Respiratory Rate 22 Respiratory Rate 21 Respiratory Rate 18 Respiratory Rate 21 Respiratory Rate 22 Blood Pressure [Right Arm] 144/86 Blood Pressure [Right Arm] 129/83 Blood Pressure [Right Arm] 136/86 Blood Pressure [Right Arm] 135/85 Blood Pressure [Right Arm] 120/77 Blood Pressure 121/56 Blood Pressure 138/91 Blood Pressure 138/91 Blood Pressure 135/86 O2 Sat by Pulse Oximetry 94 O2 Sat by Pulse Oximetry 98 O2 Sat by Pulse Oximetry 97 O2 Sat by Pulse Oximetry 96 O2 Sat by Pulse Oximetry 97 Oriented: Normal Eyes: Normal Nose: Normal Throat: Normal Respiratory: RLL Diminished and LLL Diminished Cardiovascular: Edema : Normal Auscultation: Bowel Sounds: Decreased Palpation: Normal Tenderness: RUQ, RLQ and Mild Skin: negative Rash Musculoskeletal: Back:Lumbar Psychiatric: Anxiety Mood Description: Anxious Affect: Anxious Speech Pattern: Clear and Appropriate Assessment/Plan (1) Sepsis: Status: Acute Plan: ADMIT, IV ATBX, IV HYDRATION BLOOD CULTURES ON ADMISSION BP CONTROL, CARDIAC MONITORING VERIFY HOME MEDICATIONS REPEAT LACTIC ACID, BS CONTROL PAIN CONTROL (2) Acute UTI: Status: Acute (3) Colon cancer metastasized to multiple sites: Status: Acute (4) Type 2 diabetes mellitus with diabetic chronic kidney disease: Qualifiers: Diabetes mellitus senior living insulin use: without senior living use Chronic kidney disease stage: stage 3 (moderate) Chronic kidney disease stage 3 subtype: stage 3a (GFR 45-59) Qualified Code(s): E11.22 - Type 2 diabetes mellitus with diabetic chronic kidney disease; N18.31 - Chronic kidney disease, stage 3a Status: Chronic (5) CAD (coronary artery disease): Qualifiers: Associated angina: without angina Coronary Disease-Associated Artery/Lesion type: [place] artery [place] vs. transplanted heart: [place] heart Qualified Code(s): I25.10 - Atherosclerotic heart disease of [place] coronary artery without angina pectoris Status: Chronic
[2025-05-13] MEDS ORDERED: PHARMACY CONSULT XX SCH (09:00)
[2025-05-13 09:07] LABS: ABG BASE EXCESS 0.1 mmol/L (-2.0-2.0); ABG HCO3 25.4 mmol/L (22-26); ABG OXYGEN SATURATION 93.0 % (90-100); ABG PCO2 43.0 mmHg (35.0-45.0); ABG PH 7.380 (7.35-7.45); ABG PO2 67.0 mmHg (80.0-100.0)
[2025-05-13 09:08] LABS: ABG ALLEN TEST POS
[2025-05-13 09:17] LABS: TOTAL PSA 2.36 ng/mL (0.13-4.0)
[2025-05-13] MEDS: LOVENOX INJ 40 MG SYR SC SCH (09:59)
[2025-05-13] MEDS: PERCOCET TAB 5/325 MG PO PRN (13:25)
[2025-05-13] MEDS: VANCOMYCIN IV *PREMIX 1.25 G/250 ML BAG 1.25 G/250 ML PIGGYBACK IV SCH (13:55)
--- NOTE | 2025-05-13 15:25 | CT ---
EXAM: CTA, CHEST HISTORY: ELEVATED DDIMER; COMPARISON: No relevant prior studies were available for comparison at the time of interpretation.. TECHNIQUE: CT images were obtained. Multiplanar reconstructions were created on a separate workstation and used during interpretation. All CT scans at this facility is dose modulation, iterative reconstruction, and/or weight-based dosing as appropriate to reduce radiation to levels as low as reasonably achievable (ALARA). Postprocessing details, radiation dose, and contrast dose (if applicable) are recorded in the patient's medical record. 3D maximum intensity projection images were obtained and evaluated. FINDINGS: Single lead left AICD in satisfactory position Lower Neck: No acute soft tissue abnormality. No actionable thyroid nodule. Lymph nodes: No visualized cervical, supraclavicular, axillary, mediastinal, or hilar adenopathy Upper abdomen: No acute abnormality identified in the visualized upper abdomen. Cardiomediastinum: No right heart strain. Cardiomegaly. Coronary stents Vascular: The thoracic aorta is widely patent. No significant stenosis of the major branch vessels. There is no thrombus within the pulmonary arteries down to the subsegmental level. Lungs: No suspicious airspace opacity, mass, or nodule. No evidence of traumatic injury. . No effusion or pneumothorax Osseous structures: No acute osseous abnormality. No destructive osseous lesion. IMPRESSION: 1. No PE 2. No pneumonia THIS IS AN ELECTRONICALLY VERIFIED FINAL REPORT 05/13/2025 3:22 PM - Electronically signed by Barry Nguyen MD
[2025-05-13] MEDS: NS 500 ML IV 500 ML IV ONE (15:47)
[2025-05-13] MEDS: OMNIPAQUE 350 mg/mL 100 mL BTL 100 ML ONE (15:48)
[2025-05-13] MEDS ORDERED: NORMODYNE INJ 20 MG VIAL IV PRN (17:35)
[2025-05-13] MEDS: CATAPRES TAB 0.1 MG PO ONE (18:18)
[2025-05-13] MEDS: SNACK - Diabetic Appropriate PO SCH (20:03)
[2025-05-13] MEDS: APRESOLINE INJ 20 MG VIAL IVP PRN (20:04)
[2025-05-13] MEDS: CONSULT PHARMACY - POTASSIUM & MAGNESIUM XX SCH (20:11)
[2025-05-13] MEDS: PHARMACY CONSULT - VANCOMYCIN XX SCH (20:11)
[2025-05-13] MEDS: VANCOMYCIN IV *PREMIX 2 G/400 ML BAG 2 G/400 ML PIGGYBACK IV ONE (20:11)
[2025-05-13] MEDS: APRESOLINE INJ 20 MG VIAL IVP ONE (20:11)
[2025-05-13] MEDS: REMERON PO SCH (22:00)
[2025-05-14 05:26] LABS: MEAN PLATELET VOLUME 8.5 fL (7.4-11.0); RED CELL DISTRIBUTION WIDTH 17.3 % (11.6-16.5)
[2025-05-14 05:31] LABS: COR CA(FOR HYPOALB) 9.4 mg/dL (8.5-10.1); CREATININE 1.38 mg/dL (0.70-1.30); eGFR NON BLACK RACES 58 (>60)
[2025-05-14 05:36] LABS: PLATELET MORPHOLOGY COMMENT NORMAL (NORMAL)
[2025-05-14] MEDS: PHARMACY COMMENT IV ONE (08:59)
[2025-05-14] MEDS ORDERED: ZESTRIL TAB 20 MG ONE (09:04)
[2025-05-14] MEDS: LASIX IVP ONE (09:16)
[2025-05-14] MEDS: KLOR-CON 10 MEQ TAB PO SCH (09:17)
[2025-05-14 10:22] LABS: CREATININE 1.03 mg/dL (0.70-1.30)
[2025-05-14 13:55] LABS: CREATININE 1.07 mg/dL (0.70-1.30)
[2025-05-14] MEDS: VANCOMYCIN IV *PREMIX 1.25 G/250 ML BAG 1.25 G/250 ML PIGGYBACK IV SCH (21:15)
[2025-05-15 04:35] LABS: MEAN PLATELET VOLUME 8.0 fL (7.4-11.0); RED CELL DISTRIBUTION WIDTH 17.2 % (11.6-16.5)
[2025-05-15 04:41] LABS: COR CA(FOR HYPOALB) 9.1 mg/dL (8.5-10.1); CREATININE 1.13 mg/dL (0.70-1.30); eGFR NON BLACK RACES > 60 (>60)
[2025-05-15] MEDS ORDERED: CONSULT PHARMACY - POTASSIUM & MAGNESIUM XX SCH (07:00)
[2025-05-15] MEDS: LEVAQUIN PREMIX IV 750 MG 750 MG/150 ML BAG IV SCH (08:46)
[2025-05-15] MEDS: FLOMAX PO SCH (10:07)
[2025-05-15] MEDS: ZESTRIL TAB 20 MG ONE (10:16)
[2025-05-15] MEDS: MAG-OX TAB PO SCH (10:21)
[2025-05-15] MEDS: K-DUR TAB 20 MEQ PO SCH (10:21)
[2025-05-15] MEDS: PERCOCET TAB 5/325 MG PO PRN (10:21)
--- NOTE | 2025-05-15 11:47 | RAD ---
EXAM: CHEST, 1 VIEW HISTORY: CHF, COPD; OR, CAD, HTN, DM, ANEMIA, SLEEP APNEA, ORTHO COMPARISON: Prior study or studies were utilized for comparison during interpretation with the most relevant dated 05/13/2025 TECHNIQUE: CHEST, 1 VIEW FINDINGS: Chest: Lines and tubes: Right sided implanted port with tip in satisfactory position. Left-sided pacemaker with leads in satisfactory position Mediastinum: Cardiac and mediastinal shadow is within normal limits for size and contour. Pulmonary vessels: No pulmonary vascular congestion. Lung ozuna: No suspicious airspace opacity. Pleura: No effusion. No pneumothorax. Bones and soft tissues: No acute osseous or soft tissue abnormality. IMPRESSION: 1. No acute cardiopulmonary abnormality THIS IS AN ELECTRONICALLY VERIFIED FINAL REPORT 05/15/2025 11:44 AM - Electronically signed by Barry Nguyen MD
[2025-05-16 01:26] VITALS: O2SAT 97
[2025-05-16 04:26] VITALS: PULSE 84
[2025-05-16 05:32] LABS: MEAN PLATELET VOLUME 8.7 fL (7.4-11.0); RED CELL DISTRIBUTION WIDTH 17.8 % (11.6-16.5)
[2025-05-16 05:46] LABS: COR CA(FOR HYPOALB) 9.4 mg/dL (8.5-10.1); CREATININE 1.12 mg/dL (0.70-1.30); eGFR NON BLACK RACES > 60 (>60)
[2025-05-16 06:14] VITALS: RESP 20
[2025-05-16] MEDS ORDERED: ZESTRIL TAB 20 MG ONE (08:05)
[2025-05-16] MEDS ORDERED: PHARMACY COMMENT IV ONE (08:30)
[2025-05-16 09:09] VITALS: BP 154/86; TEMP 97.4
[2025-05-16] MEDS: LEVAQUIN TAB 750 MG PO ONE (11:09)
== END 2025-05-16 11:40 | disposition home or self-care (01) | DRG 872 ==
LOC: SUPCPDRO → ER 20:44 → ICU 20:44 → OBSVTOIN 05-13 01:11 → ICU 05-13 02:17
PROVIDERS: ADMIT Internal Medicine; ATTEND Obstetrics & Gynecology Obstetrics
DX: Z16.12 Extended spectrum beta lactamase (ESBL) resistance; N40.1 Benign prostatic hyperplasia with lower urinary tract symptoms; Z97.8 Presence of other specified devices; R26.89 Other abnormalities of gait and mobility; B96.1 Klebsiella pneumoniae [K. pneumoniae] as the cause of diseases classified elsewhere; R94.31 Abnormal electrocardiogram [ECG] [EKG]; R79.1 Abnormal coagulation profile; R60.0 Localized edema; C18.9 Malignant neoplasm of colon, unspecified; I25.10 Atherosclerotic heart disease of native coronary artery without angina pectoris; E11.22 Type 2 diabetes mellitus with diabetic chronic kidney disease; I25.2 Old myocardial infarction; R70.0 Elevated erythrocyte sedimentation rate; Z95.0 Presence of cardiac pacemaker; A41.59 Other Gram-negative sepsis; N39.0 Urinary tract infection, site not specified; R10.11 Right upper quadrant pain; Z29.89 Encounter for other specified prophylactic measures; E11.65 Type 2 diabetes mellitus with hyperglycemia; Z68.43 Body mass index [BMI] 50.0-59.9, adult; Z16.29 Resistance to other single specified antibiotic; N18.31 Chronic kidney disease, stage 3a; I12.9 Hypertensive chronic kidney disease with stage 1 through stage 4 chronic kidney disease, or unspecified chronic kidney disease; R07.89 Other chest pain; E66.01 Morbid (severe) obesity due to excess calories

== ENCOUNTER 2025-06-14 00:26 | Inpatient (IN) ==
--- NOTE | 2025-06-14 01:22 | DR.ABDMALE ---
HPI Time seen Time Seen by Provider: 06/14/25 01:21 PCP Primary Care Physician: CLARK Complaint Chief Complaint Doctors Comments: Severe right sided abdominal pain with foul- smelling urine. Stated had dysuria that started today and he reports running a fever and has some tachycardia and hypertensive during triage. Patient does have history of metastatic cancer Chief Complaint:: pt in ed w/complaints of severe right sided abd pain, with foul smelling urine. denies hematuria or dysuria states started today and he reports running fever in triage pt is noted to be tachycardic,hypotensive and running a fever. COVID-19 Coronavirus risk:travel/contact w/high risk person: No Has patient experienced Coronavirus symptoms: No Source History provided by:: patient Mode of arrival Mode of Arrival: Wheelchair Timing Onset of Chief Complaint: 06/13/25 PMH PMH Past Medical History: Yes Past Medical History: Anemia, Arthritis, Coronary Artery Disease, Depression, Diabetes, Gout, Hypertension, [place], Sleep Apnea and Cancer Past Surgical History: Yes Surgical History: Abdominal Surgery, Angioplasty/Stents and Ortho Surgery Family History History of Family Medical Conditions: Yes Family Medical History: Diabetes Mellitus, Cancer and Hypertension Social History Do you use any recreational Drugs:: No Travel Risk Coronavirus risk:travel/contact w/high risk person: No Has patient experienced Coronavirus symptoms: No Infectious screening Have you traveled outside the country in the last 6 months?: No Isolation: Standard ROS Review of Systems Constitutional: Fever, Malaise and Other (tachycardia and fowl smeling urine) Eyes: No Symptoms Reported ENTM: No Symptoms Reported Respiratoy: No Symptoms Reported Cardiovascular: No Symptoms Reported Gastrointestinal/Abdominal: Abdominal Pain Genitourinary: Dysuria Neurological: No Symptoms Reported Musculoskeletal: No Symptoms Reported Integumentary: No Symptoms Reported Hematologic/Lymphatic: No Symptoms Reported Endocrine: No Symptoms Reported Psychiatric: No Symptoms Reported All Other Systems: Reviewed and Negative PE Vital Signs Vital Signs: Temp Pulse Resp BP Pulse Ox 06/14/25 05:45 103/56 06/14/25 05:45 105 H 97 06/14/25 05:30 106/58 06/14/25 05:30 103 H 98 06/14/25 05:15 102/56 06/14/25 05:15 105 H 98 06/14/25 05:00 101/59 06/14/25 05:00 101/59 06/14/25 05:00 102 H 99 06/14/25 04:45 106 H 100 06/14/25 04:45 111/58 06/14/25 04:30 106 H 94 L 06/14/25 04:30 102/59 06/14/25 04:15 86/53 06/14/25 04:15 115 H 100 06/14/25 04:00 98/55 06/14/25 04:00 118 H 97 06/14/25 03:45 117 H 100 06/14/25 03:45 97/60 06/14/25 03:42 117 H 97 06/14/25 03:41 102/58 06/14/25 03:30 86/51 06/14/25 03:30 86/51 06/14/25 03:30 86/51 06/14/25 03:15 78/48 06/14/25 03:15 78/48 06/14/25 03:01 80/44 06/14/25 03:01 80/44 06/14/25 03:00 78/41 06/14/25 02:30 70/35 06/14/25 02:11 122 H 99 06/14/25 02:10 97 H 06/14/25 02:00 98/53 06/14/25 02:00 128 H 97 06/14/25 01:56 20 06/14/25 01:45 134 H 99 06/14/25 01:30 103/50 06/14/25 01:30 103/50 06/14/25 01:30 133 H 98 06/14/25 01:30 133 H 98 06/14/25 01:25 137 H 98 06/14/25 01:24 106/52 06/14/25 01:24 106/52 06/14/25 00:27 100.3 F H 141 H 20 91/54 96 General Limitations: Physical Limitation (due to weakness) General Appearance: In Distress (moderate distress) Head Head Exam: Normal Inspection Eyes Eye exam: Normal Appearance ENT ENT Exam: Normal Exam Neck Neck Exam: Normal Inspection Chest Chest Inspection: Normal Inspection and Symmetric Chest Wall Rise Respiratory Respiratory Exam: Normal Lung Sounds Bilat Respiratory Exam: Bilateral: Clear to Auscultation Cardiovascular Cardiovascular Exam: Regular Rate Abdominal Exam Abdominal Exam: Normal Inspection and Normal Bowel Sounds Rectal Rectal Exam: Deferred Back Back Exam: Normal Inspection Extremeties Extremities Exam: Normal Inspection Neurologic Neurological Exam: Alert, Oriented X3 and CN II-XII Intact Psychiatric Psychiatric Exam: Depressed Skin Skin Exam: Warm MDM Differential Diagnosis Differential Diagnosis: Urinary tract infection and Other (comments) (sepsis,colon cancer with mets) COURSE Treatment Treatment: This patient was initially unstable when we first got his blood pressure was low systolic was in the low 70s diastolic was 50s. The patient was started on septic workup since he did complain of abdominal pain and he did have a fever so we did the septic workup we started fluids we ordered lactic acid level got his CBC urinary and CT abdomen pelvis. The patient continue to give fluids he wanted something for pain we did give him 2 morphine and his blood pressure went down a little bit we continue to give fluids at some point we started a Levophed protocol and the patient also was given after blood cultures were done levofloxacin 750 mg IV.. Patient did have a urinalysis that showed too numerous to count WBCs, +3 leukocyte esterase and +3 bacteria. Patient was discussed with Dr. Kinsey at 0 5:40 AM and he agreed the patient would be admitted for further treatment for urosepsis. The patient was told that he would be admitted for this diagnosis and was agreeable to the inpatient admission. The nurses did speak to case management and they said the patient could be admitted to the ICU for urosepsis. [facility] Labs Reviewed Laboratory Results Reviewed?: Yes 06/14/25 00:52 06/14/25 00:52 Laboratory: WBC 12.6 X10^3/uL (3.6-10.0) H 06/14/25 00:52 RBC 4.39 X10^6/uL (4.7-6.0) L 06/14/25 00:52 Hgb 11.3 g/dL (13.5-18.0) L 06/14/25 00:52 Hct 35.5 % (42.0-54.0) L 06/14/25 00:52 MCV 80.8 fL (80.0-100.0) 06/14/25 00:52 MCH 25.7 pg (27.0-34.0) L 06/14/25 00:52 MCHC 31.8 g/dL (33.0-35.0) L 06/14/25 00:52 RDW 19.0 % (11.6-16.5) H 06/14/25 00:52 Plt Count 266 X10^3/uL (150.0-450.0) 06/14/25 00:52 MPV 8.6 fL (7.4-11.0) 06/14/25 00:52 Neut % (Auto) 65.0 % (42.0-75.0) 06/14/25 00:52 Lymph % (Auto) 24.0 % (21.0-51.0) 06/14/25 00:52 [place] % (Auto) 10.4 % (0.0-13.0) 06/14/25 00:52 Eos % (Auto) 0.3 % (0.9-2.9) L 06/14/25 00:52 Baso % (Auto) 0.3 % (0.2-1.0) 06/14/25 00:52 Neut # (Auto) 8.2 x10^3/uL (2.2-4.8) H 06/14/25 00:52 Lymph # (Auto) 3.0 X10^3/uL (1.3-2.9) H 06/14/25 00:52 [place] # (Auto) 1.3 x10^3/uL (0.3-0.8) H 06/14/25 00:52 Eos # (Auto) 0.0 x10^3/uL (0.0-0.2) 06/14/25 00:52 Baso # (Auto) 0.0 X10^3/uL (0.0-0.1) 06/14/25 00:52 Absolute Nucleated RBC 0.0 /100WBC 06/14/25 00:52 Sodium 133 mmol/L (136-145) L 06/14/25 00:52 Corrected Sodium TNP 06/14/25 00:52 Potassium 3.8 mmol/L (3.5-5.1) 06/14/25 00:52 Chloride 95 mmol/L (98-107) L 06/14/25 00:52 Carbon Dioxide 28.1 mmol/L (21-32) 06/14/25 00:52 BUN 15 mg/dL (7-18) 06/14/25 00:52 Creatinine 2.85 mg/dL (0.70-1.30) H 06/14/25 00:52 Est GFR (MDRD) Af Amer 30 (>60) L 06/14/25 00:52 Est GFR (MDRD) Non-Af 25 (>60) L 06/14/25 00:52 Glucose 105 mg/dL (65-99) H 06/14/25 00:52 Lactic Acid 1.9 mmol/L (0.4-2.0) 06/14/25 05:08 Calcium 8.6 mg/dL (8.5-10.1) 06/14/25 00:52 Corrected Calcium TNP 06/14/25 00:52 Total Bilirubin 1.10 mg/dL (0.2-1.0) H 06/14/25 00:52 AST 29 Units/L (15-37) 06/14/25 00:52 ALT 30 Units/L (12-78) 06/14/25 00:52 Alkaline Phosphatase 143 Units/L (46-116) H 06/14/25 00:52 Total Protein 8.2 g/dL (6.4-8.2) 06/14/25 00:52 Albumin 3.4 g/dL (3.4-5.0) 06/14/25 00:52 Globulin 4.8 g/dL (2.5-4.5) H 06/14/25 00:52 Albumin/Globulin Ratio 0.7 Ratio (1.1-2.1) L 06/14/25 00:52 Specimen Type Clean catch urine 06/14/25 01:15 Urine Color Yellow (YELLOW) 06/14/25 01:15 Urine Appearance Cloudy (CLEAR) 06/14/25 01:15 Urine pH 6.0 (5.0 - 8.0) 06/14/25 01:15 Ur Specific [place] 1.010 (1.000-1.030) 06/14/25 01:15 Urine Protein 2+ (NEGATIVE) 06/14/25 01:15 Urine Glucose (UA) Negative (NEGATIVE) 06/14/25 01:15 Urine Ketones Negative (NEGATIVE) 06/14/25 01:15 Urine Blood 1+ (NEGATIVE) 06/14/25 01:15 Urine Nitrite Negative (NEGATIVE) 06/14/25 01:15 Urine Bilirubin Negative (NEGATIVE) 06/14/25 01:15 Urine Urobilinogen Normal (NORMAL) 06/14/25 01:15 Ur Leukocyte Esterase 3+ (NEGATIVE) 06/14/25 01:15 Urine RBC 3-5 /HPF (0-3) A 06/14/25 01:15 Urine WBC Tntc /HPF (0-5) A 06/14/25 01:15 Ur Squamous Epith Cells Few /HPF (NEGATIVE) 06/14/25 01:15 Urine Bacteria 3+ /HPF (NEGATIVE) 06/14/25 01:15 Ur Culture Indicated? Yes/culture set up 06/14/25 01:15 Opioid Opioid Risk Tool Age (Charbel box if 16-45): No History of Preadolescent Sexual Abuse: No Total: 0 Total Score Risk Category: Low Risk Copyright: Ronald DELCID predicting aberrant behaviors Discharge Plan Diagnosis Discharge Problem: Sepsis, Sepsis associated hypotension Discharge Plan Patient Disposition: 09 ADMITTED INPATIENT Condition: Stable Orders to Discharge Patient Discharge Orders: Transfer (Routine); Ordered 06/14/25 Ordered By: Matias Pathak
[2025-06-14 01:28] LABS: CREATININE 2.85 mg/dL (0.70-1.30); eGFR NON BLACK RACES 25 (>60)
[2025-06-14 01:35] LABS: MEAN PLATELET VOLUME 8.6 fL (7.4-11.0); RED CELL DISTRIBUTION WIDTH 19.0 % (11.6-16.5)
[2025-06-14] MEDS: TYLENOL 500 MG TAB EXTRA STRENGTH PO ONE ×2 (01:56→07:57)
[2025-06-14] MEDS: NS 1,000 ML IV 1,000 ML IV ONE ×3 (01:56→04:05)
[2025-06-14 01:57] LABS: BLOOD/HEMOGLOBIN,URINE 1+ (NEGATIVE); LEUKOCYTE ESTERASE ,URINE 3+ (NEGATIVE); NITRITES,URINE NEGATIVE (NEGATIVE)
[2025-06-14 02:09] LABS: APPEARANCE,URINE CLOUDY (CLEAR); SQUAMOUS EPITHELIAL CELL,UR FEW /HPF (NEGATIVE)
[2025-06-14] MEDS: ZOFRAN INJ 4 MG VIAL IVP ONE (02:10)
[2025-06-14] MEDS: MORPHINE SULFATE INJ 2 MG INJ IVP ONE (02:10)
--- NOTE | 2025-06-14 02:38 | CT ---
EXAM: CT ABDOMEN AND PELVIS WITHOUT CONTRAST HISTORY: RT SIDE ABD PAIN; w/complaints of severe right sided abd pain COMPARISON: 05/12/2025. TECHNIQUE: Axia l CT images were obtained through the abdomen and pelvis without contrast. Coronal reformatted images were included. All CT scans at this facility use dose modulation, iterative reconstruction, and/or weight based dosing when appropriate to reduce radiation dose to as low as reasonably achievable. FINDINGS: Please note that without the use of intravenous contrast, evaluation of organ parenchyma is limited. LOWER THORAX: Normal ABDOMEN: LIVER: Normal GALLBLADDER: Surgically absent SPLEEN: Normal PANCREAS: Normal KIDNEYS: Normal ADRENAL GLANDS: Normal GI TRACT: Normal course and caliber LYMPH NODES: No enlarged nodes VESSELS: Normal PERITONEUM / RETROPERITONEUM: No free gas PELVIS: BLADDER: Mild diffuse bladder wall thickening. There is also adjacent prostate gland with subtle perivesicular stranding which may represent cystitis. Correlate clinically. GENITALS: Normal BONES: Normal Stable appearance of umbilical hernia containing fat. IMPRESSION: Mild diffuse bladder wall thickening. There is also adjacent prostate gland with subtle perivesicular stranding which may represent cystitis. Correlate clinically. No evidence for urolithiasis or hydronephrosis THIS IS AN ELECTRONICALLY VERIFIED FINAL REPORT 06/14/2025 2:34 AM - Electronically signed by Galo Altman MD
[2025-06-14] MEDS: LEVAQUIN PREMIX IV 750 MG 750 MG/150 ML BAG IV ONE (02:52)
[2025-06-14] MEDS: LEVOPHED 8 MG/250 ML IV *PREMIX 8 MG/250 ML PLAST..BAG IV PRN (04:18)
[2025-06-14] MEDS: NS 1,000 ML IV 1,000 ML IV SCH ×2 (05:10→08:02)
[2025-06-14] MEDS ORDERED: KLONOPIN TAB 1 MG PO PRN (06:53)
[2025-06-14] MEDS ORDERED: PHENERGAN TAB 25 MG PO PRN (06:53)
[2025-06-14] MEDS: NS 1,000 ML IV 1,000 ML ONE (08:00)
[2025-06-14] MEDS: LEVAQUIN PREMIX IV 750 MG 750 MG/150 ML BAG IV SCH (08:01)
[2025-06-14] MEDS ORDERED: LEXAPRO ONE (09:17)
[2025-06-14] MEDS: NEURONTIN CAP 300 MG PO SCH (09:29)
[2025-06-14] MEDS: ASPIRIN EC 81 MG PO SCH (09:29)
[2025-06-14] MEDS: PROTONIX TAB 40 MG PO SCH (09:30)
[2025-06-14] MEDS: SINGULAIR TAB 10 MG PO SCH (09:31)
[2025-06-14] MEDS: GLUCOPHAGE XR 24-HR PO SCH (09:31)
[2025-06-14] MEDS: ACTOS PO SCH (09:31)
[2025-06-14] MEDS: ULORIC PO SCH (09:31)
[2025-06-14] MEDS: LEXAPRO PO SCH (09:31)
[2025-06-14] MEDS: ARIMIDEX PO SCH (09:34)
[2025-06-14] MEDS: MORPHINE SULFATE INJ 2 MG INJ IVP PRN (09:34)
--- NOTE | 2025-06-14 12:03 | DR.H&P ---
H&P History & Physical for Day of: H&P Date: 06/14/25 Chief Complaint Chief Complaint: fever, urinary infection, lower abdominal pain History of Present Illness History of Present Illness: Severe right sided abdominal pain with foul-smelling urine. Stated had dysuria that started today and he reports running a fever and has some tachycardia and hypertensive during triage. Patient does have history of metastatic cancer to the colon and is currently on chemotherapy with last treatment 2 weeks ago. Pt reports he saw Dr. Francisco in the office on Monday for check up and to discuss treatment options for management of terminal illness. Pt states his symptoms did not develop until later last night. Pt has PMH of BPH, Colon ca, CAD, HTN, OA and CHF. Pt admitted to ICU for evaluation and treatment of sepsis. Past Medical History Past Medical History: Anemia, Arthritis, Coronary Artery Disease, Depression, Diabetes, Gout, Hypertension, [place], Sleep Apnea and Cancer Past Surgical History Surgical History: Abdominal Surgery, Angioplasty/Stents and Ortho Surgery Family History Family Medical History: Diabetes Mellitus, Cancer and Hypertension Medications Home Medications: Home Medications Medication Instructions Recorded Confirmed Type nitroglycerin 0.4 mg sublingual 0.4 mg sublingual Q5M PRN 07/13/23 06/14/25 History tablet anastrozole 1 mg tablet 1 mg PO QDAY 05/12/25 History aspirin 81 mg tablet,delayed 81 mg PO QDAY 05/12/25 History release clonazepam 1 mg tablet 1 mg PO TID PRN 05/12/25 History escitalopram oxalate 20 mg tablet 20 mg PO QDAY 06/14/25 History febuxostat 80 mg tablet 80 mg PO QDAY 05/12/2506/14 History fentanyl 25 mcg/hr transdermal 1 patch Q3D 05/12/25 History patch gabapentin 300 mg capsule 300 mg PO BID 05/12/2506/14 History hydrochlorothiazide 25 mg tablet 25 mg PO QDAY 5 06/14/25 History isosorbide mononitrate 60 mg 60 mg PO QDAY 05/12/25 History tablet,extended release 24 hr lisinopril 20 mg tablet 20 mg PO QDAY 05/12/2506/14 History metformin 500 mg tablet,extended 1,000 mg PO BID 05/1206/14/25 History release 24 hr metoprolol succinate 50 mg 50 mg PO QDAY 05/12/2505/30 History tablet,extended release 24 hr mirtazapine 15 mg tablet 15 mg PO QPM 05/12/25 History montelukast 10 mg tablet 10 mg PO QDAY 05/12/2506/14 History olanzapine 5 mg tablet 5 mg PO QPM 05/12/25 5 History ondansetron 4 mg disintegrating 4 mg PO Q8H PRN 06/14/25 History tablet pantoprazole 40 mg tablet,delayed 40 mg PO QDAY 06/14/25 History release pioglitazone 45 mg tablet 45 mg PO QDAY 05/12/2506/14 History promethazine 25 mg tablet 25 mg PO Q6H PRN 05/12/25 History rosuvastatin 20 mg tablet 20 mg PO QPM 05/12/25 History oxycodone 30 mg tablet 30 mg PO QID PRN 06/14/25 History pregabalin 150 mg capsule 150 mg PO BID 06/14/2506/14 History Allergies Allergies Allergy/AdvReac Type Severity Reaction Status Date / Time Penicillins Allergy Verified 06/14/25 04:18 Labs 06/14/25 00:52 06/14/25 00:52 Labs: Laboratory WBC 12.6 X10^3/uL (3.6-10.0) H 06/14/25 00:52 RBC 4.39 X10^6/uL (4.7-6.0) L 06/14/25 00:52 Hgb 11.3 g/dL (13.5-18.0) L 06/14/25 00:52 Hct 35.5 % (42.0-54.0) L 06/14/25 00:52 MCV 80.8 fL (80.0-100.0) 06/14/25 00:52 MCH 25.7 pg (27.0-34.0) L 06/14/25 00:52 MCHC 31.8 g/dL (33.0-35.0) L 06/14/25 00:52 RDW 19.0 % (11.6-16.5) H 06/14/25 00:52 Plt Count 266 X10^3/uL (150.0-450.0) 06/14/25 00:52 MPV 8.6 fL (7.4-11.0) 06/14/25 00:52 Neut % (Auto) 65.0 % (42.0-75.0) 06/14/25 00:52 Lymph % (Auto) 24.0 % (21.0-51.0) 06/14/25 00:52 [place] % (Auto) 10.4 % (0.0-13.0) 06/14/25 00:52 Eos % (Auto) 0.3 % (0.9-2.9) L 06/14/25 00:52 Baso % (Auto) 0.3 % (0.2-1.0) 06/14/25 00:52 Neut # (Auto) 8.2 x10^3/uL (2.2-4.8) H 06/14/25 00:52 Lymph # (Auto) 3.0 X10^3/uL (1.3-2.9) H 06/14/25 00:52 [place] # (Auto) 1.3 x10^3/uL (0.3-0.8) H 06/14/25 00:52 Eos # (Auto) 0.0 x10^3/uL (0.0-0.2) 06/14/25 00:52 Baso # (Auto) 0.0 X10^3/uL (0.0-0.1) 06/14/25 00:52 Absolute Nucleated RBC 0.0 /100WBC 06/14/25 00:52 Sodium 133 mmol/L (136-145) L 06/14/25 00:52 Corrected Sodium TNP 06/14/25 00:52 Potassium 3.8 mmol/L (3.5-5.1) 06/14/25 00:52 Chloride 95 mmol/L (98-107) L 06/14/25 00:52 Carbon Dioxide 28.1 mmol/L (21-32) 06/14/25 00:52 BUN 15 mg/dL (7-18) 06/14/25 00:52 Creatinine 2.85 mg/dL (0.70-1.30) H 06/14/25 00:52 Est GFR (MDRD) Af Amer 30 (>60) L 06/14/25 00:52 Est GFR (MDRD) Non-Af 25 (>60) L 06/14/25 00:52 Glucose 105 mg/dL (65-99) H 06/14/25 00:52 Lactic Acid 1.9 mmol/L (0.4-2.0) 06/14/25 05:08 Calcium 8.6 mg/dL (8.5-10.1) 06/14/25 00:52 Corrected Calcium TNP 06/14/25 00:52 Total Bilirubin 1.10 mg/dL (0.2-1.0) H 06/14/25 00:52 AST 29 Units/L (15-37) 06/14/25 00:52 ALT 30 Units/L (12-78) 06/14/25 00:52 Alkaline Phosphatase 143 Units/L (46-116) H 06/14/25 00:52 Total Protein 8.2 g/dL (6.4-8.2) 06/14/25 00:52 Albumin 3.4 g/dL (3.4-5.0) 06/14/25 00:52 Globulin 4.8 g/dL (2.5-4.5) H 06/14/25 00:52 Albumin/Globulin Ratio 0.7 Ratio (1.1-2.1) L 06/14/25 00:52 Specimen Type Clean catch urine 06/14/25 01:15 Urine Color Yellow (YELLOW) 06/14/25 01:15 Urine Appearance Cloudy (CLEAR) 06/14/25 01:15 Urine pH 6.0 (5.0 - 8.0) 06/14/25 01:15 Ur Specific [place] 1.010 (1.000-1.030) 06/14/25 01:15 Urine Protein 2+ (NEGATIVE) 06/14/25 01:15 Urine Glucose (UA) Negative (NEGATIVE) 06/14/25 01:15 Urine Ketones Negative (NEGATIVE) 06/14/25 01:15 Urine Blood 1+ (NEGATIVE) 06/14/25 01:15 Urine Nitrite Negative (NEGATIVE) 06/14/25 01:15 Urine Bilirubin Negative (NEGATIVE) 06/14/25 01:15 Urine Urobilinogen Normal (NORMAL) 06/14/25 01:15 Ur Leukocyte Esterase 3+ (NEGATIVE) 06/14/25 01:15 Urine RBC 3-5 /HPF (0-3) A 06/14/25 01:15 Urine WBC Tntc /HPF (0-5) A 06/14/25 01:15 Ur Squamous Epith Cells Few /HPF (NEGATIVE) 06/14/25 01:15 Urine Bacteria 3+ /HPF (NEGATIVE) 06/14/25 01:15 Ur Culture Indicated? Yes/culture set up 06/14/25 01:15 Review of Systems Constitutional: Fever, Chills and Weakness Eyes: No Symptoms Reported ENT: No Symptoms Reported Respiratory: SOB with Excertion Cardiovascular: No Symptoms Reported Gastrointestinal: Nausea and Abdominal Pain Genitourinary: Dysuria, Retention and Other (foul odor to urine) Musculoskeletal: Back Pain Skin: No Symptoms Reported Neurological: No Symptoms Reported Physical Exam Vital Signs: Vital Signs Temperature 98.0 F Temperature 98.2 F Pulse Rate 93 Pulse Rate 97 Pulse Rate 101 Pulse Rate 102 Pulse Rate 103 Pulse Rate 103 Pulse Rate 105 Pulse Rate 103 Pulse Rate 105 Pulse Rate 102 Pulse Rate 106 Pulse Rate 106 Pulse Rate 115 Pulse Rate 118 Respiratory Rate 24 Respiratory Rate 24 Respiratory Rate 24 Respiratory Rate 23 Respiratory Rate 26 Blood Pressure 136/73 Blood Pressure 127/64 Blood Pressure 123/61 Blood Pressure 113/63 Blood Pressure 136/72 Blood Pressure 106/57 Blood Pressure 103/56 Blood Pressure 106/58 Blood Pressure 102/56 Blood Pressure 101/59 Blood Pressure 101/59 Blood Pressure 111/58 Blood Pressure 102/59 Blood Pressure 86/53 Blood Pressure 98/55 O2 Sat by Pulse Oximetry 97 O2 Sat by Pulse Oximetry 98 O2 Sat by Pulse Oximetry 100 O2 Sat by Pulse Oximetry 98 O2 Sat by Pulse Oximetry 97 O2 Sat by Pulse Oximetry 99 O2 Sat by Pulse Oximetry 97 O2 Sat by Pulse Oximetry 98 O2 Sat by Pulse Oximetry 98 O2 Sat by Pulse Oximetry 99 O2 Sat by Pulse Oximetry 100 O2 Sat by Pulse Oximetry 94 O2 Sat by Pulse Oximetry 100 O2 Sat by Pulse Oximetry 97 Oriented: Normal Eyes: Normal Ear: Normal Nose: Normal Throat: Dry Respiratory: RLL Diminished and LLL Diminished Cardiovascular: Normal and Other (pacemaker present) Auscultation: Bowel Sounds: Normal Palpation: Other (mild diffuse distention and obese abdomen) Tenderness: Diffuse, LLQ and Suprapubic Skin: Normal Musculoskeletal: Back:Lumbar Psychiatric: Depression Mood Description: Depressed Affect: Normal Speech Pattern: Clear and Appropriate Assessment/Plan (1) Sepsis: Status: Acute Plan: ADMIT, ICU CE AND EKG MONITORING PRN SUPPLEMENTAL O2, BP CONTROL WITH LEVOPHED IV HYDRATION, STRICT I&OS BS CONTROL, VERIFY HOME MEDICATIONS BC AND UC OBTAINED ON ADMISSION, REPEAT LACTIC ACID IV ATBX THERAPY (2) Acute UTI: Status: Acute (3) Acute hypokalemia: Status: Acute (4) Sepsis associated hypotension: Status: Acute (5) JEREMY (acute kidney injury): Status: Acute (6) Colon cancer metastasized to multiple sites: Status: Acute (7) Diabetes mellitus type 2: Status: Chronic (8) CAD (coronary artery disease): Qualifiers: Associated angina: without angina Coronary Disease-Associated Artery/Lesion type: [place] artery Tribe vs. transplanted heart: [place] heart Qualified Code(s): I25.10 - Atherosclerotic heart disease of [place] coronary artery without angina pectoris Status: Chronic
[2025-06-14 15:39] VITALS: BMI 47.9
[2025-06-14] MEDS: DILAUDID INJ IVP PRN (16:38)
[2025-06-14] MEDS: BUTT CREAM (COMPOUND) TOP PRN (17:01)
[2025-06-14] MEDS: INVanz INJ 1 GRAM VIAL 1 G in NS 100 ML IV 100 ML IV SCH (19:11)
[2025-06-14] MEDS: ROXICODONE TAB 15 MG PO PRN (21:28)
[2025-06-14] MEDS: REMERON PO SCH (21:28)
[2025-06-15] MEDS: CATAPRES TAB 0.1 MG PO ONE (02:36)
--- NOTE | 2025-06-15 02:38 | EKG ---
Test Reason : Hypertension Protocol Blood Pressure : */* mmHG Vent. Rate : 109 BPM Atrial Rate : 109 BPM P-R Int : 182 ms QRS Dur : 102 ms QT Int : 334 ms P-R-T Axes : 41 -59 24 degrees QTc Int : 449 ms Sinus tachycardia Left axis deviation Inferior infarct (cited on or before 22-MAY-2024) Abnormal ECG When compared with ECG of 23-MAY-2025 00:45, No significant change was found Confirmed by Jacky Whitaker MD ([id number]) on 06/15/2025 6:48:14 AM Referred By: Confirmed By: Jacky Whitaker MD
[2025-06-15 05:11] LABS: MEAN PLATELET VOLUME 8.1 fL (7.4-11.0); RED CELL DISTRIBUTION WIDTH 19.1 % (11.6-16.5)
[2025-06-15 05:22] LABS: COR CA(FOR HYPOALB) 9.2 mg/dL (8.5-10.1); CREATININE 1.26 mg/dL (0.70-1.30); eGFR NON BLACK RACES > 60 (>60)
[2025-06-15] MEDS: D50W ABBOJECT SYR IV ONE ×5 (05:34→16:45)
[2025-06-15] MEDS: APRESOLINE INJ 20 MG VIAL IVP ONE (07:14)
[2025-06-15] MEDS: NORMODYNE INJ 20 MG VIAL IV PRN (07:26)
[2025-06-15] MEDS: NORMODYNE INJ 20 MG VIAL ONE (07:32)
[2025-06-15] MEDS ORDERED: LEXAPRO ONE (08:03)
[2025-06-15] MEDS: D50W ABBOJECT SYR IVP ONE (16:03)
[2025-06-15] MEDS ORDERED: D50W ABBOJECT SYR ONE (16:03)
[2025-06-15] MEDS: D5 NS 1,000 ML IV 1,000 ML IV SCH (16:12)
[2025-06-15] MEDS: D5 NS 1,000 ML IV 1,000 ML IV ONE (16:13)
[2025-06-15] MEDS ORDERED: NS 1,000 ML IV 1,000 ML IV SCH (22:00)
[2025-06-16] MEDS ORDERED: ROXICODONE TAB 15 MG PO PRN (03:31)
[2025-06-16] MEDS: NS 1,000 ML IV 1,000 ML IV SCH (04:14)
[2025-06-16] MEDS: THIAMINE HCL INJ IVP SCH (04:15)
[2025-06-16 05:14] LABS: MEAN PLATELET VOLUME 8.4 fL (7.4-11.0); RED CELL DISTRIBUTION WIDTH 19.0 % (11.6-16.5)
[2025-06-16 05:26] LABS: COR CA(FOR HYPOALB) 9.3 mg/dL (8.5-10.1); COR NA(FOR HYPERGLY) 136 mmol/L (136-145); CREATININE 1.25 mg/dL (0.70-1.30); eGFR NON BLACK RACES > 60 (>60)
[2025-06-16] MEDS ORDERED: CONSULT PHARMACY - POTASSIUM & MAGNESIUM XX SCH (07:00)
[2025-06-16] MEDS ORDERED: LEXAPRO ONE (08:31)
[2025-06-16] MEDS ORDERED: PHARMACY CONSULT XX SCH (09:00)
[2025-06-16] MEDS: MAG-OX TAB PO SCH (09:02)
[2025-06-16] MEDS: LOVENOX INJ 40 MG SYR SC SCH (09:06)
[2025-06-16] MEDS: ROXICODONE TAB 15 MG PO PRN (09:39)
[2025-06-16] MEDS: NS 1,000 ML IV 1,000 ML with MAGNESIUM SULFATE 50% INJ VIAL 1 G IV SCH (10:41)
[2025-06-16] MEDS: ZOFRAN ODT PO PRN (14:27)
[2025-06-16] MEDS ORDERED: D50W ABBOJECT SYR ONE (16:16)
[2025-06-16] MEDS: D50W ABBOJECT SYR IV ONE ×5 (16:20→22:01)
[2025-06-17 05:47] LABS: MEAN PLATELET VOLUME 8.6 fL (7.4-11.0); RED CELL DISTRIBUTION WIDTH 18.4 % (11.6-16.5)
[2025-06-17 06:04] LABS: COR CA(FOR HYPOALB) 9.1 mg/dL (8.5-10.1); CREATININE 1.12 mg/dL (0.70-1.30); eGFR NON BLACK RACES > 60 (>60)
[2025-06-17 06:30] LABS: BAND NEUTROPHILS % 2 % (0-10); PLATELET MORPHOLOGY COMMENT NORMAL (NORMAL)
[2025-06-17] MEDS ORDERED: CONSULT PHARMACY - POTASSIUM & MAGNESIUM XX SCH (07:00)
[2025-06-17] MEDS: MAG-OX TAB PO SCH (09:21)
[2025-06-17] MEDS: K-DUR TAB 20 MEQ PO SCH (09:22)
[2025-06-17 10:56] VITALS: TEMP 97.9
[2025-06-17] MEDS: LEXAPRO ONE (11:04)
[2025-06-17 15:41] VITALS: BP 169/94; PULSE 101; RESP 14; O2SAT 95
== END 2025-06-17 13:05 | disposition home or self-care (01) | DRG 872 ==
LOC: ER 00:26 → ICU 06:00
PROVIDERS: ADMIT Internal Medicine; ATTEND Obstetrics & Gynecology Obstetrics
DX: Z16.23 Resistance to quinolones and fluoroquinolones; I25.2 Old myocardial infarction; C18.9 Malignant neoplasm of colon, unspecified; F32.89 Other specified depressive episodes; A41.89 Other specified sepsis; Z29.89 Encounter for other specified prophylactic measures; I25.10 Atherosclerotic heart disease of native coronary artery without angina pectoris; R94.31 Abnormal electrocardiogram [ECG] [EKG]; N28.9 Disorder of kidney and ureter, unspecified; N40.0 Benign prostatic hyperplasia without lower urinary tract symptoms; M19.90 Unspecified osteoarthritis, unspecified site; E80.6 Other disorders of bilirubin metabolism; C79.9 Secondary malignant neoplasm of unspecified site; N39.0 Urinary tract infection, site not specified; Z68.43 Body mass index [BMI] 50.0-59.9, adult; E87.1 Hypo-osmolality and hyponatremia; I10 Essential (primary) hypertension; Z95.5 Presence of coronary angioplasty implant and graft; E66.2 Morbid (severe) obesity with alveolar hypoventilation; Z92.21 Personal history of antineoplastic chemotherapy; R10.84 Generalized abdominal pain; R94.4 Abnormal results of kidney function studies; F12.90 Cannabis use, unspecified, uncomplicated; I95.89 Other hypotension; B96.29 Other Escherichia coli [E. coli] as the cause of diseases classified elsewhere; Z16.29 Resistance to other single specified antibiotic; E11.65 Type 2 diabetes mellitus with hyperglycemia; R00.0 Tachycardia, unspecified; Z16.12 Extended spectrum beta lactamase (ESBL) resistance

== ENCOUNTER 2025-09-20 13:06 | Observation (INO) ==
--- NOTE | 2025-09-20 13:22 | DR.URIAD ---
HPI Time Seen Time Seen by Provider: 09/20/25 13:21 HPI Comment HPI Comment: Patient is a 50-year-old male with history of HTN, HLD, diabetes, stage IV colon cancer, CAD status post 4 stents and CHF with defibrillator who presents to ED via EMS for complaint of flu-like sx. Patient states his symptoms started a couple days ago. He has productive cough and congestion. He has felt feverish and nauseous. Has had multiple bouts of diarrhea since chemo 2 weeks ago.Denies any hematuria, dysuria, hematochezia, or melena. He was called by his PCP yesterday for a critical lab, WBC was <1. He was prescribed Levaquin. He had the prescription filled this AM but has not taken the medication. Patient is also complaining of diffuse pain. He does have oxycodone and fentanyl patches at home but has not taken 1He is requesting pain management and assistance with his fatigue and flulike symptoms. PMH PMH Past Medical History: Anemia, Arthritis, Coronary Artery Disease, Depression, Diabetes, Gout, Hypertension, [place], Sleep Apnea and Cancer Past Surgical History: Yes Surgical History: Abdominal Surgery, Angioplasty/Stents and Ortho Surgery Family History Family Medical History: Diabetes Mellitus, Cancer and Hypertension Social History Do you use any recreational Drugs:: No ROS Review of Systems All Other Systems: Reviewed and Negative PE Vital Signs Vitals: Vital Signs Pulse Rate 75 Pulse Rate 71 Pulse Rate 72 Pulse Rate 70 Pulse Rate 73 Pulse Rate 70 Pulse Rate 68 Respiratory Rate 19 Respiratory Rate 19 Respiratory Rate 17 Respiratory Rate 18 Respiratory Rate 15 Respiratory Rate 20 Respiratory Rate 14 Respiratory Rate 19 Respiratory Rate 17 Blood Pressure 136/81 Blood Pressure 131/76 Blood Pressure 135/84 O2 Sat by Pulse Oximetry 99 O2 Sat by Pulse Oximetry 98 O2 Sat by Pulse Oximetry 99 O2 Sat by Pulse Oximetry 97 O2 Sat by Pulse Oximetry 99 Other Exam Other Exam: GEN: Morbidly obese male lying comfortably on the exam table in no acute respiratory distress. EYES: No scleral injection MOUTH: Mucosa moist, no tonsillar exudate or erythema HEART: RRR LUNGS: CTABL ABD: Soft, tender to palpation in the RUQ, non distended, BS normal EXTREMITIES: No edema in the legs bilaterally CV: Radial pulse 2+ bilaterally BACK: Diffuse right flank pain. COURSE Treatment Treatment: Due to concern for leukopenia A full septic workup was performed. Labs included CBC, CMP, lactic acid, blood cultures, UA, respiratory panel, strep test. Also ordered a chest x-ray. [facility]OR Labs Reviewed 09/20/25 14:20 09/20/25 14:20 Laboratory: WBC 2.3 X10^3/uL (3.6-10.0) L 09/20/25 14:20 RBC 3.29 X10^6/uL (4.7-6.0) L 09/20/25 14:20 Hgb 9.4 g/dL (13.5-18.0) L 09/20/25 14:20 Hct 28.9 % (42.0-54.0) L 09/20/25 14:20 MCV 87.8 fL (80.0-100.0) 09/20/25 14:20 MCH 28.6 pg (27.0-34.0) 09/20/25 14:20 MCHC 32.6 g/dL (33.0-35.0) L 09/20/25 14:20 RDW 22.6 % (11.6-16.5) H 09/20/25 14:20 Plt Count 228 X10^3/uL (150.0-450.0) 09/20/25 14:20 Plt Count Comment Adequate (ADEQUATE) 09/20/25 14:20 MPV 8.1 fL (7.4-11.0) 09/20/25 14:20 Neut % (Auto) 8.4 % (42.0-75.0) L 09/20/25 14:20 Lymph % (Auto) 70.1 % (21.0-51.0) H 09/20/25 14:20 [place] % (Auto) 19.9 % (0.0-13.0) H 09/20/25 14:20 Eos % (Auto) 1.1 % (0.9-2.9) 09/20/25 14:20 Baso % (Auto) 0.5 % (0.2-1.0) 09/20/25 14:20 Neut # (Auto) 0.2 x10^3/uL (2.2-4.8) L 09/20/25 14:20 Lymph # (Auto) 1.6 X10^3/uL (1.3-2.9) 09/20/25 14:20 [place] # (Auto) 0.5 x10^3/uL (0.3-0.8) 09/20/25 14:20 Eos # (Auto) 0.0 x10^3/uL (0.0-0.2) 09/20/25 14:20 Baso # (Auto) 0.0 X10^3/uL (0.0-0.1) 09/20/25 14:20 Absolute Nucleated RBC 0.7 /100WBC 09/20/25 14:20 Total Counted 50 09/20/25 14:20 Neutrophils % (Manual) 12 % (39-76) L 09/20/25 14:20 Lymphocytes % (Manual) 70 % (13-43) H 09/20/25 14:20 Monocytes % (Manual) 16 % (4-9) H 09/20/25 14:20 Eosinophils % (Manual) 2 % (0-6) 09/20/25 14:20 Plt Morphology Comment Normal (NORMAL) 09/20/25 14:20 RBC Morphology Abnormal (NORMAL) 09/20/25 14:20 Anisocytosis 2+ A 09/20/25 14:20 Sodium 143 mmol/L (136-145) 09/20/25 14:20 Corrected Sodium TNP 09/20/25 14:20 Potassium 3.9 mmol/L (3.5-5.1) 09/20/25 14:20 Chloride 108 mmol/L (98-107) H 09/20/25 14:20 Carbon Dioxide 27.6 mmol/L (21-32) 09/20/25 14:20 BUN 9 mg/dL (7-18) 09/20/25 14:20 Creatinine 1.31 mg/dL (0.70-1.30) H 09/20/25 14:20 Est GFR (MDRD) Af Amer > 60 (>60) 09/20/25 14:20 Est GFR (MDRD) Non-Af > 60 (>60) 09/20/25 14:20 Glucose 78 mg/dL (65-99) 09/20/25 14:20 Lactic Acid 3.3 mmol/L (0.4-2.0) H 09/20/25 16:35 Calcium 8.0 mg/dL (8.5-10.1) L 09/20/25 14:20 Corrected Calcium 8.8 mg/dL (8.5-10.1) 09/20/25 14:20 Total Bilirubin 0.40 mg/dL (0.2-1.0) 09/20/25 14:20 AST 18 Units/L (15-37) 09/20/25 14:20 ALT 12 Units/L (12-78) 09/20/25 14:20 Alkaline Phosphatase 127 Units/L (46-116) H 09/20/25 14:20 Total Protein 6.2 g/dL (6.4-8.2) L 09/20/25 14:20 Albumin 3.0 g/dL (3.4-5.0) L 09/20/25 14:20 Globulin 3.2 g/dL (2.5-4.5) 09/20/25 14:20 Albumin/Globulin Ratio 0.9 Ratio (1.1-2.1) L 09/20/25 14:20 Specimen Type Clean catch urine 09/20/25 13:34 Urine Color Yellow (YELLOW) 09/20/25 13:34 Urine Appearance Clear (CLEAR) 09/20/25 13:34 Urine pH 6.0 (5.0 - 8.0) 09/20/25 13:34 Ur Specific [place] 1.015 (1.000-1.030) 09/20/25 13:34 Urine Protein 1+ (NEGATIVE) 09/20/25 13:34 Urine Glucose (UA) Negative (NEGATIVE) 09/20/25 13:34 Urine Ketones Negative (NEGATIVE) 09/20/25 13:34 Urine Blood Negative (NEGATIVE) 09/20/25 13:34 Urine Nitrite Negative (NEGATIVE) 09/20/25 13:34 Urine Bilirubin Negative (NEGATIVE) 09/20/25 13:34 Urine Urobilinogen Normal (NORMAL) 09/20/25 13:34 Ur Leukocyte Esterase Negative (NEGATIVE) 09/20/25 13:34 Urine RBC None seen /HPF (0-3) 09/20/25 13:34 Urine WBC 0-2 /HPF (0-5) 09/20/25 13:34 Ur Squamous Epith Cells Rare /HPF (NEGATIVE) 09/20/25 13:34 Urine Bacteria Negative /HPF (NEGATIVE) 09/20/25 13:34 Ur Culture Indicated? No/not indicated 09/20/25 13:34 SARS-CoV-2 (PCR) Negative (NEGATIVE) 09/20/25 13:12 Influenza Type A (PCR) Negative (NEGATIVE) 09/20/25 13:12 Influenza Type B (PCR) Negative (NEGATIVE) 09/20/25 13:12 RSV (PCR) Negative (NEGATIVE) 09/20/25 13:12 S. pyogenes (TEM-PCR) Not detected (NOT DETECT) 09/20/25 13:12 XRAY X-ray Results: [id number] 1975 Sex: M Location: ER Order Number(s): [id number] Procedure(s):CHEST, 1 VIEW X-RAY Ordering Physician: Rodney [facility] Service Date: 09/20/25 Service Time: 1312 EXAM: CHEST HISTORY: COUGH; COMPARISON: July 11, 2025 TECHNIQUE: Frontal view of the chest was submitted for interpretation. FINDINGS: Left chest pacer device noted. Right IJ port tip overlies the superior vena cava. The cardiomediastinal silhouette enlarged lungs show no focal consolidation, pneumothorax, or pleural fluid. IMPRESSION: Cardiomegaly. THIS IS AN ELECTRONICALLY VERIFIED FINAL REPORT 09/20/2025 1:50 PM - Electronically signed by Zachariah Gilmore MD Report Electronically signed: 09/20/25 1354 CC: Rodney Shay Opioid Opioid Risk Tool Age (Charbel box if 16-45): No History of Preadolescent Sexual Abuse: No Total: 0 Total Score Risk Category: Low Risk Copyright: [facility] predicting aberrant behaviors Discharge Plan Diagnosis Discharge Problem: Drug-induced leukopenia Discharge Plan Patient Disposition: ADMITTED INPATIENT Condition: Stable Provider Note Additional Notes Patient is a 50-year-old male with history of HTN, HLD, diabetes, stage IV colon cancer, CAD status post 4 stents and CHF with defibrillator who presents to ED via EMS for complaint of flu-like sx. Upon evaluation in the ED patient was afebrile and medically stable. CBC revealed leukopenia. Lactic acidosis of greater than 2. Due to his low white count he may not be able to adequately mount an immune response. Respiratory panel and strep test were negative. Chest x-ray did not reveal any Consolidation or infiltrates. Symptoms overall condition and leukopenia Hospitalist was consulted for admission. Dr. Sofia agreed to accept the patient
[2025-09-20] MEDS ORDERED: OFIRMEV IV 1000 MG VIAL 1,000 MG/100 ML VIAL IV ONE (13:23)
[2025-09-20] MEDS: OFIRMEV IV 1000 MG VIAL 1,000 MG/100 ML VIAL IV ONE (13:25)
[2025-09-20] MEDS: DILAUDID INJ IVP ONE ×2 (13:32→16:21)
[2025-09-20 13:52] LABS: APPEARANCE,URINE CLEAR (CLEAR); BLOOD/HEMOGLOBIN,URINE NEGATIVE (NEGATIVE); LEUKOCYTE ESTERASE ,URINE NEGATIVE (NEGATIVE); NITRITES,URINE NEGATIVE (NEGATIVE)
--- NOTE | 2025-09-20 13:54 | RAD ---
EXAM: CHEST HISTORY: COUGH; COMPARISON: July 11, 2025 TECHNIQUE: Frontal view of the chest was submitted for interpretation. FINDINGS: Left chest pacer device noted. Right IJ port tip overlies the superior vena cava. The cardiomediastinal silhouette enlarged lungs show no focal consolidation, pneumothorax, or pleural fluid. IMPRESSION: Cardiomegaly. THIS IS AN ELECTRONICALLY VERIFIED FINAL REPORT 09/20/2025 1:50 PM - Electronically signed by Zachariah Gilmore MD
[2025-09-20 13:55] LABS: SQUAMOUS EPITHELIAL CELL,UR RARE /HPF (NEGATIVE)
[2025-09-20 14:39] LABS: MEAN PLATELET VOLUME 8.1 fL (7.4-11.0); RED CELL DISTRIBUTION WIDTH 22.6 % (11.6-16.5)
[2025-09-20 14:52] LABS: COR CA(FOR HYPOALB) 8.8 mg/dL (8.5-10.1); CREATININE 1.31 mg/dL (0.70-1.30); eGFR NON BLACK RACES > 60 (>60)
[2025-09-20] MEDS ORDERED: NS 500 ML IV 500 ML IV ONE (15:11)
[2025-09-20] MEDS: NS 500 ML IV 500 ML IV ONE (15:12)
[2025-09-20 15:15] LABS: PLATELET MORPHOLOGY COMMENT NORMAL (NORMAL)
[2025-09-20] MEDS ORDERED: DILAUDID INJ ONE (16:17)
[2025-09-20] MEDS: ZOSYN VIAL 3.375 GRAMS 3.375 G in NS 100 ML IV 100 ML IV ONE (17:21)
[2025-09-20] MEDS: ZOSYN VIAL 3.375 GRAMS 3.375 G in NS 100 ML IV 100 ML IV SCH (18:11)
[2025-09-20] MEDS: NS 1,000 ML IV 1,000 ML IV SCH (19:03)
[2025-09-20] MEDS: MORPHINE SULFATE INJ 2 MG INJ IVP PRN (19:03)
[2025-09-20] MEDS: SNACK - Diabetic Appropriate PO SCH (20:00)
[2025-09-20] MEDS ORDERED: NovoLIN R (or HumuLIN R) SUBCUT PRN (21:00)
[2025-09-20] MEDS: VANCOMYCIN IV *PREMIX 1 G/200 ML BAG 1 G/200 ML PIGGYBACK IV SCH (21:30)
[2025-09-21] MEDS: NS 250 ML IV 250 ML IV ONE
[2025-09-21 00:05] VITALS: BMI 44.0
[2025-09-21 07:06] LABS: MEAN PLATELET VOLUME 8.4 fL (7.4-11.0); RED CELL DISTRIBUTION WIDTH 22.4 % (11.6-16.5)
[2025-09-21 07:21] LABS: COR CA(FOR HYPOALB) 8.8 mg/dL (8.5-10.1); CREATININE 1.51 mg/dL (0.70-1.30); eGFR NON BLACK RACES 52 (>60)
[2025-09-21 07:40] LABS: PLATELET MORPHOLOGY COMMENT NORMAL (NORMAL)
[2025-09-21] MEDS: DILAUDID INJ IVP PRN (12:18)
--- NOTE | 2025-09-21 13:51 | DR.H&P ---
H&P History & Physical for Day of: H&P Date: 09/21/25 Chief Complaint Chief Complaint: Not feeling right History of Present Illness History of Present Illness: Patient presented to the ER yesterday after "I I did not feel right." His oncologist had informed him that he had neutropenia, but he cannot remember the exact number, this last Monday. When he started feeling ill yesterday, he contacted the oncology [employer] and his PCP. Oncology advised urgent evaluation and PCP was going to see him in the office Monday. He did come to the ER and was found to have moderate neutropenia with chronic anemia. Was slightly tachypneic in the ER and did have an elevated lactic acid. He has known rectosigmoid cancer. He had a port placed in 2023 and started treatments a year ago. He is getting chemotherapy every 2 weeks. Currently feels tired but slightly better today. Still very nonspecific symptoms. He did wear BiPAP overnight and rested fairly well. Does report that he is hurting all over and would like to switch his morphine to Dilaudid. ROS: Negative for headache, vision changes, ear pain, sore throat, fever, chills, cough, abdominal pain, diarrhea, nausea, vomiting, dysuria, hematuria, hematochezia, or rash. 12 point ROS is also otherwise negative. PE: Morbidly obese male in no acute distress. Resting comfortably in bed. Head NCAT with hearing grossly normal. Heart distant but regular rate and rhythm. Lungs very difficult to auscultate but clear with fair air movement. Belly is protuberant but soft with bowel sounds present. Mood and affect are appropriate. Past Medical History Past Medical History: Anemia, Arthritis, Coronary Artery Disease, Depression, Diabetes, Gout, Hypertension, [place], Sleep Apnea and Cancer Past Surgical History Surgical History: Abdominal Surgery, Angioplasty/Stents, Bowel Resection, Ortho Surgery and Other Family History Family Medical History: Diabetes Mellitus, Cancer and Hypertension Social History Does patient currently use any type of tobacco product: Yes Have you used tobacco products in the last 12 months: Yes Type of Tobacco Use: None Does any household member use tobacco: Yes Alcohol Use: Occasionally Drug Use: None Medications Home Medications: Home Medications Medication Instructions Recorded Confirmed Type aluminum-mag hydroxide-simethicone ml 09/20/25 Histor y 200 mg-200 mg-20 mg/5 mL oral susp (Antacid-[place]) anastrozole 1 mg tablet 1 mg PO QDAY 09/20/25 History aspirin 81 mg tablet,delayed 81 mg PO QDAY 09/20/25 History release clonazepam 1 mg tablet 1 mg PO TID PRN 09/20/25 History colchicine 0.6 mg tablet 0.6 mg PO QDAY 09/20/2508/31 History escitalopram oxalate 20 mg tablet 20 mg PO QDAY 09/20/25 History febuxostat 80 mg tablet 80 mg PO QDAY 09/20/2509/20 History fentanyl 75 mcg/hr transdermal 1 patch Q3D 09/20/25 History patch fluticasone propionate 50 spray intranasal 09/20/25 H istory mcg/actuation nasal spray,suspension hydrochlorothiazide 25 mg tablet 25 mg PO QDAY 5 09/20/25 History isosorbide mononitrate 60 mg 60 mg PO QDAY 09/20/25 History tablet,extended release 24 hr levofloxacin 500 mg tablet 500 mg PO QDAY 09/20/25 History levothyroxine 100 mcg tablet 100 mcg PO QDAY 09/20/25 09/20/25 History lisinopril 30 mg tablet 30 mg PO QDAY 09/20/2509/20 History metformin 500 mg tablet,extended 1,000 mg PO BID 09/2009/20/25 History release 24 hr metoprolol succinate 25 mg 25 mg PO QDAY 09/20/2508/31 History tablet,extended release 24 hr mirtazapine 15 mg tablet 15 mg PO QPM 09/20/25 History montelukast 10 mg tablet 10 mg PO QDAY 09/20/2509/20 History naproxen 500 mg tablet 500 mg PO BID 09/20/2509/20 History nitroglycerin 0.4 mg sublingual mg sublingual 09/20/25 History tablet olanzapine 5 mg tablet 5 mg PO QPM 09/20/25 5 History oxycodone 30 mg tablet 30 mg PO QID PRN 09/20/25 History oxycodone-acetaminophen 10 mg-325 1 tab PO TID PRN 09/20/25 History mg tablet pantoprazole 40 mg tablet,delayed 40 mg PO QDAY 09/20/25 History release pioglitazone 45 mg tablet 45 mg PO QDAY 09/20/2509/20 History pregabalin 150 mg capsule 150 mg PO BID 09/20/2509/20 History rosuvastatin 20 mg tablet 20 mg PO QPM 09/20/25 History Allergies Allergies Allergy/AdvReac Type Severity Reaction Status Date / Time No Known Allergies Allergy Verified 09/16/25 13:10 Labs 09/21/25 06:00 09/21/25 06:00 Labs: Laboratory WBC 2.4 X10^3/uL (3.6-10.0) L 09/21/25 06:00 RBC 3.19 X10^6/uL (4.7-6.0) L 09/21/25 06:00 Hgb 9.1 g/dL (13.5-18.0) L 09/21/25 06:00 Hct 28.3 % (42.0-54.0) L 09/21/25 06:00 MCV 88.8 fL (80.0-100.0) 09/21/25 06:00 MCH 28.6 pg (27.0-34.0) 09/21/25 06:00 MCHC 32.2 g/dL (33.0-35.0) L 09/21/25 06:00 RDW 22.4 % (11.6-16.5) H 09/21/25 06:00 Plt Count 217 X10^3/uL (150.0-450.0) 09/21/25 06:00 Plt Count Comment Adequate (ADEQUATE) 09/20/25 14:20 MPV 8.4 fL (7.4-11.0) 09/21/25 06:00 Neut % (Auto) 20.9 % (42.0-75.0) L 09/21/25 06:00 Lymph % (Auto) 54.6 % (21.0-51.0) H 09/21/25 06:00 [place] % (Auto) 22.4 % (0.0-13.0) H 09/21/25 06:00 Eos % (Auto) 1.7 % (0.9-2.9) 09/21/25 06:00 Baso % (Auto) 0.4 % (0.2-1.0) 09/21/25 06:00 Neut # (Auto) 0.5 x10^3/uL (2.2-4.8) L 09/21/25 06:00 Lymph # (Auto) 1.3 X10^3/uL (1.3-2.9) 09/21/25 06:00 [place] # (Auto) 0.5 x10^3/uL (0.3-0.8) 09/21/25 06:00 Eos # (Auto) 0.0 x10^3/uL (0.0-0.2) 09/21/25 06:00 Baso # (Auto) 0.0 X10^3/uL (0.0-0.1) 09/21/25 06:00 Absolute Nucleated RBC 0.9 /100WBC 09/21/25 06:00 Total Counted 50 09/20/25 14:20 Neutrophils % (Manual) 12 % (39-76) L 09/20/25 14:20 Lymphocytes % (Manual) 70 % (13-43) H 09/20/25 14:20 Monocytes % (Manual) 16 % (4-9) H 09/20/25 14:20 Eosinophils % (Manual) 2 % (0-6) 09/20/25 14:20 Plt Morphology Comment Normal (NORMAL) 09/20/25 14:20 RBC Morphology Abnormal (NORMAL) 09/20/25 14:20 Anisocytosis 2+ A 09/20/25 14:20 Sodium 143 mmol/L (136-145) 09/20/25 14:20 Corrected Sodium TNP 09/20/25 14:20 Potassium 3.9 mmol/L (3.5-5.1) 09/20/25 14:20 Chloride 108 mmol/L (98-107) H 09/20/25 14:20 Carbon Dioxide 27.6 mmol/L (21-32) 09/20/25 14:20 BUN 9 mg/dL (7-18) 09/20/25 14:20 Creatinine 1.31 mg/dL (0.70-1.30) H 09/20/25 14:20 Est GFR (MDRD) Af Amer > 60 (>60) 09/20/25 14:20 Est GFR (MDRD) Non-Af > 60 (>60) 09/20/25 14:20 Glucose 78 mg/dL (65-99) 09/20/25 14:20 POC Glucose (mg/dL) 101 mg/dL (65-99) H 09/21/25 05:12 Lactic Acid 2.9 mmol/L (0.4-2.0) H 09/20/25 19:13 Calcium 8.0 mg/dL (8.5-10.1) L 09/20/25 14:20 Corrected Calcium 8.8 mg/dL (8.5-10.1) 09/20/25 14:20 Total Bilirubin 0.40 mg/dL (0.2-1.0) 09/20/25 14:20 AST 18 Units/L (15-37) 09/20/25 14:20 ALT 12 Units/L (12-78) 09/20/25 14:20 Alkaline Phosphatase 127 Units/L (46-116) H 09/20/25 14:20 Total Protein 6.2 g/dL (6.4-8.2) L 09/20/25 14:20 Albumin 3.0 g/dL (3.4-5.0) L 09/20/25 14:20 Globulin 3.2 g/dL (2.5-4.5) 09/20/25 14:20 Albumin/Globulin Ratio 0.9 Ratio (1.1-2.1) L 09/20/25 14:20 Specimen Type Clean catch urine 09/20/25 13:34 Urine Color Yellow (YELLOW) 09/20/25 13:34 Urine Appearance Clear (CLEAR) 09/20/25 13:34 Urine pH 6.0 (5.0 - 8.0) 09/20/25 13:34 Ur Specific [place] 1.015 (1.000-1.030) 09/20/25 13:34 Urine Protein 1+ (NEGATIVE) 09/20/25 13:34 Urine Glucose (UA) Negative (NEGATIVE) 09/20/25 13:34 Urine Ketones Negative (NEGATIVE) 09/20/25 13:34 Urine Blood Negative (NEGATIVE) 09/20/25 13:34 Urine Nitrite Negative (NEGATIVE) 09/20/25 13:34 Urine Bilirubin Negative (NEGATIVE) 09/20/25 13:34 Urine Urobilinogen Normal (NORMAL) 09/20/25 13:34 Ur Leukocyte Esterase Negative (NEGATIVE) 09/20/25 13:34 Urine RBC None seen /HPF (0-3) 09/20/25 13:34 Urine WBC 0-2 /HPF (0-5) 09/20/25 13:34 Ur Squamous Epith Cells Rare /HPF (NEGATIVE) 09/20/25 13:34 Urine Bacteria Negative /HPF (NEGATIVE) 09/20/25 13:34 Ur Culture Indicated? No/not indicated 09/20/25 13:34 SARS-CoV-2 (PCR) Negative (NEGATIVE) 09/20/25 13:12 Influenza Type A (PCR) Negative (NEGATIVE) 09/20/25 13:12 Influenza Type B (PCR) Negative (NEGATIVE) 09/20/25 13:12 RSV (PCR) Negative (NEGATIVE) 09/20/25 13:12 S. pyogenes (TEM-PCR) Not detected (NOT DETECT) 09/20/25 13:12 Physical Exam Vital Signs: Vital Signs Temperature 98.0 F Temperature 98.0 F Pulse Rate [Left Brachial] 73 Pulse Rate [Left Brachial] 73 Respiratory Rate 18 Respiratory Rate 18 Respiratory Rate 18 Blood Pressure [Left Arm] 154/91 Blood Pressure [Left Arm] 149/76 O2 Sat by Pulse Oximetry 100 O2 Sat by Pulse Oximetry 100 Assessment/Plan (1) Drug-induced leukopenia: Narrative Support Text: Monitor labs and vitals. Continue BiPAP at night. Switch morphine to Dilaudid, for now. Patient with a very benign exam and suspect lactic acid is related to his chemo and GI cancer. Suspect the tachypnea is related to his weight. Status: Acute (2) Colon cancer: Qualifiers: Colon location: sigmoid Qualified Code(s): C18.7 - Malignant neoplasm of sigmoid colon Status: Acute (3) Tachypnea: Status: Acute (4) Anemia of chronic disease: Status: Acute (5) Sleep apnea: Status: Acute (6) SIRS (systemic inflammatory response syndrome): Status: Acute
[2025-09-21] MEDS: COLACE CAP 100 MG PO SCH (21:40)
[2025-09-22 06:04] LABS: COR CA(FOR HYPOALB) 8.8 mg/dL (8.5-10.1); CREATININE 1.32 mg/dL (0.70-1.30); eGFR NON BLACK RACES > 60 (>60)
[2025-09-22 06:11] LABS: MEAN PLATELET VOLUME 8.7 fL (7.4-11.0); RED CELL DISTRIBUTION WIDTH 21.8 % (11.6-16.5)
[2025-09-22 06:39] LABS: PLATELET MORPHOLOGY COMMENT NORMAL (NORMAL)
[2025-09-22 09:20] LABS: CREATININE 1.26 mg/dL (0.70-1.30)
[2025-09-22] MEDS: PHARMACY COMMENT IV NR (09:41)
[2025-09-22] MEDS ORDERED: LEXAPRO ONE (11:48)
[2025-09-22] MEDS: SINGULAIR TAB 10 MG PO SCH (11:49)
[2025-09-22] MEDS: GLUCOPHAGE XR 24-HR PO SCH (11:49)
[2025-09-22] MEDS: ASPIRIN EC 81 MG PO SCH (11:49)
[2025-09-22] MEDS: ZESTRIL TAB 10 MG PO SCH (11:50)
[2025-09-22] MEDS: ACTOS PO SCH (11:50)
[2025-09-22] MEDS: ISOSORBIDE MONONITRATE ER 24-HR PO SCH (11:50)
[2025-09-22] MEDS: PROTONIX TAB 40 MG PO SCH (11:50)
[2025-09-22] MEDS: COLCRYS TAB 0.6 MG PO SCH (11:50)
[2025-09-22] MEDS: FLONASE NASAL SPRAY ENOSTRIL PRN (11:51)
[2025-09-22] MEDS: LEXAPRO PO SCH (11:51)
[2025-09-22] MEDS: ULORIC PO SCH (11:51)
[2025-09-22] MEDS: ARIMIDEX PO SCH (11:51)
[2025-09-22] MEDS: HYDROCHLOROTHIAZIDE 25 MG TAB PO SCH (11:51)
[2025-09-22] MEDS: TOPROL XL PO SCH (11:51)
[2025-09-22] MEDS: CRESTOR TAB 10 MG PO SCH (20:32)
[2025-09-22] MEDS: REMERON PO SCH (20:34)
[2025-09-22] MEDS: KLONOPIN TAB 1 MG PO PRN (20:46)
[2025-09-23] MEDS: NORCO 5/325 MG TAB PO PRN (03:24)
[2025-09-23 03:53] VITALS: BP 160/83
[2025-09-23 06:19] LABS: COR CA(FOR HYPOALB) 9.0 mg/dL (8.5-10.1); CREATININE 1.30 mg/dL (0.70-1.30); eGFR NON BLACK RACES > 60 (>60)
[2025-09-23 06:35] LABS: MEAN PLATELET VOLUME 7.9 fL (7.4-11.0); RED CELL DISTRIBUTION WIDTH 22.3 % (11.6-16.5)
[2025-09-23 06:49] LABS: PLATELET MORPHOLOGY COMMENT NORMAL (NORMAL)
[2025-09-23] MEDS ORDERED: LEXAPRO ONE (07:39)
[2025-09-23] MEDS ORDERED: CONSULT PHARMACY - POTASSIUM & MAGNESIUM XX SCH (08:00)
[2025-09-23] MEDS: MAG-OX TAB PO SCH (08:58)
[2025-09-23 09:21] VITALS: O2SAT 96
[2025-09-23] MEDS: MAGNESIUM SULFATE 1 GRAM/100 mL PREMIX 1 G/100 ML BAG IV SCH (09:45)
[2025-09-23 12:05] VITALS: PULSE 87; RESP 16; TEMP 98.6
== END 2025-09-23 12:25 | disposition home or self-care (01) ==
LOC: ER 13:06 → INTOOBSV 17:41 → MED/SURG 17:41
PROVIDERS: ADMIT Family Medicine; ATTEND Obstetrics & Gynecology Obstetrics
DX: R19.7 Diarrhea, unspecified; D63.8 Anemia in other chronic diseases classified elsewhere; Z95.0 Presence of cardiac pacemaker; E83.42 Hypomagnesemia; Z72.0 Tobacco use; E87.29 Other acidosis; M79.10 Myalgia, unspecified site; G47.30 Sleep apnea, unspecified; I10 Essential (primary) hypertension; E83.51 Hypocalcemia; I51.7 Cardiomegaly; R80.9 Proteinuria, unspecified; R06.82 Tachypnea, not elsewhere classified; R79.89 Other specified abnormal findings of blood chemistry; R09.81 Nasal congestion; D72.818 Other decreased white blood cell count; E66.01 Morbid (severe) obesity due to excess calories; R65.10 Systemic inflammatory response syndrome (SIRS) of non-infectious origin without acute organ dysfunction; Z51.11 Encounter for antineoplastic chemotherapy; C18.7 Malignant neoplasm of sigmoid colon; Z03.818 Encounter for observation for suspected exposure to other biological agents ruled out; R53.1 Weakness; R05.9 Cough, unspecified